=== PATIENT | male | born 1950 | race Two or more races ===

== ENCOUNTER → 2016-02-12 | Outpatient (CLI) | payer MEDICARE | LOC: RAD 15:34 | PROVIDERS: ATTEND Internal Medicine Medical Oncology | DX: D75.1 Secondary polycythemia (principal) | CPT/HCPCS: 71020 ==

== ENCOUNTER 2016-03-19 07:00 | Day surgery (SDC) | payer MEDICARE ==
[2016-03-19] MEDS ORDERED: NALOXONE HCL INJ/PF 0.4 MG/1 ML SDV ONE (07:29)
[2016-03-19] MEDS ORDERED: PROMETHAZINE HCL INJ 25 MG/1 ML VIAL ONE (07:29)
[2016-03-19] MEDS ORDERED: ONDANSETRON HCL INJ/PF 4 MG/2 ML SDV ONE (07:29)
[2016-03-19] MEDS ORDERED: FENTANYL CITRATE INJ/PF 100 MCG/2 ML AMPUL ONE (07:30)
[2016-03-19] MEDS ORDERED: MIDAZOLAM 2 MG/2 ML INJ ONE (07:30)
[2016-03-19] MEDS ORDERED: FLUMAZENIL INJ 0.5 MG/5 ML VIAL IV ONE (07:30)
[2016-03-19] MEDS ORDERED: GLUCAGON,HUMAN RECOMB 1 MG INJ ONE (07:30)
[2016-03-19] MEDS ORDERED: GLYCOPYRROLATE INJ 0.4 MG/2 ML VIAL ONE (07:30)
[2016-03-19] MEDS ORDERED: EPINEPHRINE INJ 1 MG/10 ML DISP.SYRIN ONE (07:30)
[2016-03-19 09:27] VITALS: BP 134/77
--- NOTE | 2016-03-19 09:40 | Operative Report ---
Operative Report DATE OF SURGERY: 03/19/16 PREOPERATIVE DIAGNOSIS: Need for screening colonoscopy POSTOPERATIVE DIAGNOSIS: Same; one polyp descending colon OPERATION: 1. Total colonoscopy to cecum with photodocumentation. 2. Ascending colon polypectomy with hot snare SURGEON: MATILDE MONTERO ANESTHESIA: Other - no sedation TISSUE REMOVED OR ALTERED: Descending colon polyp COMPLICATIONS: None ESTIMATED BLOOD LOSS: scant INTRAOPERATIVE FINDINGS: See below PROCEDURE: Obtaining informed consent the patient was taken from the preoperative holding area to the main endoscopy suite where monitoring devices were attached to the patient. Plan and surgical timeout were conducted The patient was placed in the left lateral decubitus position with knees to chest. The patient preferred no sedation and surgical procedures performed successfully without discomfort without sedation A perianal examination was performed. There was no visible or palpable anorectal pathology. Sphincter tone was felt to be normal. I could not palpate the prostate due to the patient 's body habitus The flexible adult colonoscope was advanced through the anal rectal canal, all the way to the cecum. Utilization of the cecum was achieved and the ileocecal valve, the appendiceal orifice and partial partial transillumination of the anterior abdominal wall. This was a very good study on a reasonably well- prepped bowel. There was a moderate amount of liquid stool that needed to be aspirated . The colonoscope was withdrawn slowly and methodically checked and the mucosa carefully. There was no evidence of tumor, stricture, bleeding. There was a solitary polyp in the ascending colon small approximately 3 mm slightly pedunculated. It was photographed, and removed using hot snare device on medium strength. The specimen was successfully retrieved and sent to pathology as ascending colon polyp. There was no mechanical bleeding following the polypectomy There was no evidence of diverticuloses. The scope was slowly withdrawn through the anal rectal canal. Complete visualization of the rectum was achieved with photodocumentation. The scope was withdrawn to the patient's anus. The patient tolerated the procedure well and was taken to the recovery area in stable condition. Per surveillance guidelines, patient be appropriate candidate for follow colonoscopy approximately 3 years.
--- NOTE | 2016-03-19 09:47 | PDOC DISCHARGE SUMMARY ---
Discharge Summary (SDC) - Discharge Final Diagnosis: Ascending colon polyp Date of Surgery: 03/19/16 Discharge Date: 03/19/16 Condition: Good Forms: Discharge POC-Surgical Service Treatment or Instructions: pt doesnt want a followup appt. will call office for results of bxs Referrals: KAUSHIK MARSHALL MD [Primary Care Provider] - Discharge Activity: Activity As Tolerated Home Care Assistance: None Needed Report the Following to Your Physician Immediately: Shortness of Breath, Increase in Pain, Fever over 101 Degrees - Patient returns also surgical clinic. Appointment with Dr. Watts in approximately 1-2 weeks
== END 2016-03-19 09:20 | disposition home or self-care (01) ==
LOC: END 07:00
PROVIDERS: ATTEND Surgery
PROC: 0DBK8ZX Excision of Ascending Colon, Via Natural or Artificial Opening Endoscopic, Diagnostic (ICD-10-PCS; principal; 2016-03-19 07:30)
DX: Z12.11 Encounter for screening for malignant neoplasm of colon (principal); D12.2 Benign neoplasm of ascending colon; I48.91 Unspecified atrial fibrillation; M19.90 Unspecified osteoarthritis, unspecified site; E66.01 Morbid (severe) obesity due to excess calories; G89.29 Other chronic pain; Z86.79 Personal history of other diseases of the circulatory system; Z88.3 Allergy status to other anti-infective agents; Z79.899 Other long term (current) drug therapy; Z68.45 Body mass index [BMI] 70 or greater, adult
CPT/HCPCS: 45385; 88305 ×2; J0171; J1610; J2250; J2310; J2405; J2550; J3010; J3490

== ENCOUNTER → 2016-03-23 | Outpatient (CLI) | payer MEDICARE | LOC: RAD 10:31 | PROVIDERS: ATTEND Internal Medicine Medical Oncology | DX: R10.2 Pelvic and perineal pain (principal) | CPT/HCPCS: 76770 ==

== ENCOUNTER 2016-03-24 11:24 | Emergency (ER) | payer MEDICARE ==
--- NOTE | 2016-03-24 11:43 | ER Document Report ---
ED Medical Screen (RME) - General Stated Complaint: LEG PAIN Time seen by provider: 11:41 Mode of Arrival: Wheelchair Information source: Patient Notes: 65-year-old male presents to ED for listed to the back of the right calf states that the pot today and is now bleeding. He has very edematous legs with any had 2 blisters that have gotten better now the leg is getting larger and titer ended the blister developed I have greeted and performed a rapid initial assessment of this patient. A comprehensive ED assessment and evaluation of the patient, analysis of test results and completion of medical decision making process will be conducted by an additional ED providers.. TRAVEL OUTSIDE OF THE [place] IN LAST 30 DAYS: No - Related Data Allergies/Adverse Reactions: ciprofloxacin [From Cipro] Allergy (Verified 03/24/16 11:37) ciprofloxacin HCl [From Cipro] Allergy (Verified 03/24/16 11:37) Past Medical History - Past Medical History Cardiac Medical History: Reports: Hx Atrial Fibrillation, Hx DVT Denies: Hx Coronary Artery Disease, Hx Heart Attack, Hx Hypertension Pulmonary Medical History: Reports: Hx Respiratory Failure, Hx Sleep Apnea Denies: Hx Asthma, Hx Bronchitis, Hx COPD, Hx Pneumonia, Hx Tuberculosis Neurological Medical History: Denies: Hx Cerebrovascular Accident, Hx Seizures GI Medical History: Reports: Hx Hiatal Hernia, Hx Endoscopy Musculoskeltal Medical History: Reports Hx Arthritis - ANKLES/KNEES/SHOULDERS, Reports Hx Musculoskeletal Deformity, Reports Hx Musculoskeletal Trauma Skin Medical History: Reports Hx Cellulitis Psychiatric Medical History: Reports: Hx Anxiety, Hx Depression Past Surgical History: Reports: Hx Abdominal Surgery - hernia repair, Hx Herniorrhaphy - Umbilical hernia repair, ventral hernia, Hx Testicular Surgery. Denies: Hx Pacemaker - Immunizations Hx Diphtheria, Pertussis, Tetanus Vaccination: Yes
[2016-03-24 11:45] VITALS: BP 130/58
--- NOTE | 2016-03-24 13:02 | ER Document Report ---
ED General - General Chief Complaint: Leg Pain Stated Complaint: LEG PAIN Time seen by provider: 12:45 Mode of Arrival: Wheelchair Information source: Patient Notes: 65-year-old male reports he has had a intact blood blister to the posterior right calf for 2 months that began bleeding this morning. He was reports being able to express considerable amount of blood from the area this morning and presents now for evaluation. He denies fever, chills, nausea, vomiting, chest pain, abdominal pain, or back pain. He is upper DACs birthrate or fibrillation and for history DVT. He reports chronic swelling to both lower extremities which is not worse than normal. He reports he's been in his usual state of health otherwise recently Physical Exam: General: Alert, morbidly obese pleasant male. HEENT: Normocephalic. Atraumatic. PERRLA. Extraocular movements intact. Oropharynx clear. Neck: Supple. Non-tender. Respiratory: No respiratory distress. Clear and equal breath sounds bilaterally. Cardiovascular: Regular rate and rhythm. Abdominal: Normal Inspection. Soft, non-tender. No distension. Normal Bowel Sounds. Back: Non-tender. No deformity or step off. Extremities: Moves all four extremities. Upper tremors walk 2+ pulses of cyanosis no edema Lower extremities warm to plus pulses 4+ edema. The right lower extremity has a 3 x 3 cm area of soft tissue swelling the central area of fresh blood clot. This area is palpated and do not palpate any deeper structures to suggest deep abscess and no purulence is expressed. There is a 1 x 2 cm area of erythema medial to this I think would be consistent with a superficial cellulitis. There is no crepitance or fluctuance surrounding the area and no streaking erythema approximately Neurological: Speech clear mentation normal Psychological: Normal affect. Normal Mood. Skin: Warm. Dry. Normal color. TRAVEL OUTSIDE OF THE [place] IN LAST 30 DAYS: No - Related Data Allergies/Adverse Reactions: ciprofloxacin [From Cipro] Allergy (Verified 03/24/16 11:37) ciprofloxacin HCl [From Cipro] Allergy (Verified 03/24/16 11:37) Past Medical History - General Information source: Patient - Social History Smoking Status: Former Smoker Chew tobacco use (# tins/day): No Frequency of alcohol use: None Drug Abuse: None Family History: Reviewed & Not Pertinent Patient has suicidal ideation: No Patient has homicidal ideation: No - Past Medical History Cardiac Medical History: Reports: Hx Atrial Fibrillation, Hx DVT Denies: Hx Coronary Artery Disease, Hx Heart Attack, Hx Hypertension Pulmonary Medical History: Reports: Hx Respiratory Failure, Hx Sleep Apnea Denies: Hx Asthma, Hx Bronchitis, Hx COPD, Hx Pneumonia, Hx Tuberculosis Neurological Medical History: Denies: Hx Cerebrovascular Accident, Hx Seizures Renal/ Medical History: Denies: Hx Peritoneal Dialysis GI Medical History: Reports: Hx Hiatal Hernia, Hx Endoscopy Musculoskeltal Medical History: Reports Hx Arthritis - ANKLES/KNEES/SHOULDERS, Reports Hx Musculoskeletal Deformity, Reports Hx Musculoskeletal Trauma Skin Medical History: Reports Hx Cellulitis Psychiatric Medical History: Reports: Hx Anxiety, Hx Depression Past Surgical History: Reports: Hx Abdominal Surgery - hernia repair, Hx Herniorrhaphy - Umbilical hernia repair, ventral hernia, Hx Testicular Surgery. Denies: Hx Pacemaker - Immunizations Hx Diphtheria, Pertussis, Tetanus Vaccination: Yes Hx Pneumococcal Vaccination: 11/09/15 Review of Systems - Review of Systems Constitutional: denies: Chills, Fever EENT: denies: Ear pain, Throat pain Cardiovascular: denies: Chest pain, Syncope Respiratory: denies: Cough, Short of breath Gastrointestinal: denies: Abdominal pain, Nausea, Vomiting Genitourinary: denies: Burning Musculoskeletal: denies: Back pain Skin: See HPI Neurological/Psychological: denies: Weakness, Numbness Physical Exam - Vital signs Vitals: Temp Pulse Resp BP Pulse Ox 97.7 F 76 18 130/58 H 93 03/24/16 11:37 03/24/16 11:37 03/24/16 11:37 03/24/16 11:37 03/24/16 11:37 Course - Re-evaluation Re-evalutation: 03/24/16 13:00 Examination the patient does not have an abscess in his reported blisters open and draining. There is no active or pulsatile bleeding present. I am concerned there is a cellulitis component to this and he will be placed on clindamycin for that. He reports he has some of this at home and have advised him that it is not . Use that we'll provide a prescription for more. Last can follow with his physician Dr. Fleming next week for recheck - Vital Signs Vital signs: Temp Pulse Resp BP Pulse Ox 97.7 F 76 18 130/58 H 93 03/24/16 11:37 03/24/16 11:37 03/24/16 11:37 03/24/16 11:37 03/24/16 11:37 Discharge - Discharge Clinical Impression: Cellulitis of right lower leg Condition: Stable Disposition: HOME, SELF-CARE Prescriptions: Clindamycin HCl [Cleocin 300 mg Capsule] 300 mg PO TID #30 capsule Referrals: KAUSHIK MARSHALL MD [Primary Care Provider] - Follow up in 1 week
== END 2016-03-24 13:33 | disposition home or self-care (01) ==
LOC: ER 11:24
DX: L03.115 Cellulitis of right lower limb (principal); R60.0 Localized edema; Z88.1 Allergy status to other antibiotic agents; Z87.891 Personal history of nicotine dependence; Z86.718 Personal history of other venous thrombosis and embolism
CPT/HCPCS: 99283

== ENCOUNTER → 2016-05-06 | Outpatient (CLI) | payer MEDICARE ==
[2016-05-06 14:26] LABS: ANION GAP 9 (5-19); BLOOD UREA NITROGEN 12 mg/dL (7-20); CALCIUM 9.5 mg/dL (8.4-10.2); CARBON DIOXIDE 38 mmol/L (22-30); CHLORIDE 96 mmol/L (98-107); CREATININE RESULT 0.74 mg/dL (0.52-1.25); GLUCOSE 121 mg/dL (75-110); POTASSIUM 4.8 mmol/L (3.6-5.0); SODIUM 143.3 mmol/L (137-145)
== END ==
LOC: OD 12:44
PROVIDERS: ATTEND Family Medicine
DX: I50.32 Chronic diastolic (congestive) heart failure (principal)
CPT/HCPCS: 36415; 80048

== ENCOUNTER → 2016-07-24 | Outpatient (CLI) | payer MEDICARE ==
[2016-07-24 09:21] LABS: BASOPHILS % (AUTO) 0.9 % (0-2); EOSINOPHILS % (AUTO) 2.3 % (0-6); HEMATOCRIT 53.8 % (37.9-51.0); HEMOGLOBIN 17.2 g/dL (13.5-17.0); HGB HCT DIFFERENCE -2.2; LYMPHOCYTES % (AUTO) 22.7 % (13-45); MEAN CORPUSCULAR HEMOGLOBIN 29.9 pg (27.0-33.4); MEAN CORPUSCULAR HGB CONC 31.9 g/dL (32.0-36.0); MEAN CORPUSCULAR VOLUME 94 fl (80-97); MONOCYTES % (AUTO) 7.3 % (3-13); RED BLOOD COUNT 5.74 10^6/uL (4.35-5.55); RED CELL DISTRIBUTION WIDTH 14.4 % (11.5-14.0); SEGMENTED NEUTROPHILS % (AUTO) 66.8 % (42-78); WHITE BLOOD COUNT 6.3 10^3/uL (4.0-10.5)
[2016-07-24 09:22] LABS: ABSOLUTE BASOPHILS # (AUTO) 0.1 10^3/uL (0.0-0.2); ABSOLUTE EOSINOPHILS # (AUTO) 0.1 10^3/uL (0.0-0.6); ABSOLUTE LYMPHOCYTES (AUTO) 1.4 10^3/uL (0.5-4.7); ABSOLUTE MONOCYTES (AUTO) 0.5 10^3/uL (0.1-1.4); ABSOLUTE NEUT (AUTO) 4.2 10^3/uL (1.7-8.2)
[2016-07-24 09:50] LABS: ALANINE AMINOTRANSFERASE 24 U/L (21-72); ALBUMIN 3.9 g/dL (3.5-5.0); ALKALINE PHOSPHATASE 72 U/L (38-126); ANION GAP 10 (5-19); ASPARTATE AMINO TRANSFERASE 22 U/L (17-59); BILIRUBIN,DIRECT 0.4 mg/dL (0.0-0.4); BILIRUBIN,TOTAL 0.9 mg/dL (0.2-1.3); BLOOD UREA NITROGEN 20 mg/dL (7-20); CARBON DIOXIDE 34 mmol/L (22-30); CHLORIDE 98 mmol/L (98-107); CREATININE RESULT 0.84 mg/dL (0.52-1.25); GLUCOSE 91 mg/dL (75-110); POTASSIUM 4.1 mmol/L (3.6-5.0); TOTAL PROTEIN 7.2 g/dL (6.3-8.2)
== END ==
LOC: OD 08:04
PROVIDERS: ATTEND Family Medicine
DX: Z13.1 Encounter for screening for diabetes mellitus (principal); E53.8 Deficiency of other specified B group vitamins; Z79.01 Long term (current) use of anticoagulants
CPT/HCPCS: 36415; 80048; 80076; 82607; 85025

== ENCOUNTER → 2016-10-13 | Outpatient (CLI) | payer MEDICARE ==
[2016-10-13 11:01] LABS: ABSOLUTE BASOPHILS # (AUTO) 0.1 10^3/uL (0.0-0.2); ABSOLUTE EOSINOPHILS # (AUTO) 0.1 10^3/uL (0.0-0.6); ABSOLUTE LYMPHOCYTES (AUTO) 1.3 10^3/uL (0.5-4.7); ABSOLUTE MONOCYTES (AUTO) 0.5 10^3/uL (0.1-1.4); ABSOLUTE NEUT (AUTO) 4.6 10^3/uL (1.7-8.2); BASOPHILS % (AUTO) 0.8 % (0-2); EOSINOPHILS % (AUTO) 1.9 % (0-6); HEMATOCRIT 54.7 % (37.9-51.0); HEMOGLOBIN 18.7 g/dL (13.5-17.0); HGB HCT DIFFERENCE 1.4; LYMPHOCYTES % (AUTO) 19.8 % (13-45); MEAN CORPUSCULAR HEMOGLOBIN 31.3 pg (27.0-33.4); MEAN CORPUSCULAR HGB CONC 34.2 g/dL (32.0-36.0); MEAN CORPUSCULAR VOLUME 92 fl (80-97); MONOCYTES % (AUTO) 7.4 % (3-13); RED BLOOD COUNT 5.96 10^6/uL (4.35-5.55); RED CELL DISTRIBUTION WIDTH 15.3 % (11.5-14.0); SEGMENTED NEUTROPHILS % (AUTO) 70.1 % (42-78); WHITE BLOOD COUNT 6.6 10^3/uL (4.0-10.5)
== END ==
LOC: OD 10:01
PROVIDERS: ATTEND Family Medicine
DX: Z79.01 Long term (current) use of anticoagulants (principal); Z51.81 Encounter for therapeutic drug level monitoring
CPT/HCPCS: 36415; 85025

== ENCOUNTER → 2017-08-26 | Outpatient (CLI) | payer MEDICARE ==
[2017-08-26 13:04] LABS: ABSOLUTE BASOPHILS # (AUTO) 0.1 10^3/uL (0.0-0.2); ABSOLUTE EOSINOPHILS # (AUTO) 0.2 10^3/uL (0.0-0.6); ABSOLUTE LYMPHOCYTES (AUTO) 1.5 10^3/uL (0.5-4.7); ABSOLUTE MONOCYTES (AUTO) 0.6 10^3/uL (0.1-1.4); ABSOLUTE NEUT (AUTO) 4.5 10^3/uL (1.7-8.2); BASOPHILS % (AUTO) 0.7 % (0-2); EOSINOPHILS % (AUTO) 2.9 % (0-6); HEMOGLOBIN 19.3 g/dL (13.5-17.0); LYMPHOCYTES % (AUTO) 21.9 % (13-45); MEAN CORPUSCULAR HGB CONC 33.7 g/dL (32.0-36.0); MEAN CORPUSCULAR VOLUME 92 fl (80-97); MONOCYTES % (AUTO) 8.4 % (3-13); PLATELET COUNT 177 10^3/uL (150-450); RED BLOOD COUNT 6.24 10^6/uL (4.35-5.55); RED CELL DISTRIBUTION WIDTH 14.4 % (11.5-14.0); SEGMENTED NEUTROPHILS % (AUTO) 66.1 % (42-78); TOTAL CELLS COUNTED % (AUTO) 100 %; WHITE BLOOD COUNT 6.8 10^3/uL (4.0-10.5)
[2017-08-26 13:11] LABS: HEMATOCRIT 57.4 % (37.9-51.0)
[2017-08-26 13:27] LABS: ALANINE AMINOTRANSFERASE 22 U/L (21-72); ALBUMIN 4.1 g/dL (3.5-5.0); ALKALINE PHOSPHATASE 75 U/L (38-126); ANION GAP 9 (5-19); ASPARTATE AMINO TRANSFERASE 23 U/L (17-59); BILIRUBIN,DIRECT 0.4 mg/dL (0.0-0.4); BILIRUBIN,TOTAL 0.9 mg/dL (0.2-1.3); BLOOD UREA NITROGEN 21 mg/dL (7-20); CALCIUM 9.3 mg/dL (8.4-10.2); CARBON DIOXIDE 33 mmol/L (22-30); CHLORIDE 100 mmol/L (98-107); GLUCOSE 102 mg/dL (75-110); SODIUM 141.5 mmol/L (137-145); TOTAL PROTEIN 7.4 g/dL (6.3-8.2)
== END ==
LOC: OD 12:09
PROVIDERS: ATTEND Family Medicine
DX: Z13.1 Encounter for screening for diabetes mellitus (principal); Z79.01 Long term (current) use of anticoagulants; E53.8 Deficiency of other specified B group vitamins
CPT/HCPCS: 36415; 80048; 80076; 82607; 85025

== ENCOUNTER → 2017-11-18 | Outpatient (CLI) | payer MEDICARE ==
--- NOTE | 2017-11-18 12:56 | RADIOLOGY REPORT (SQ) ---
EXAM DESCRIPTION: U/S ABDOMEN LIMITED W/O DOP COMPLETED DATE/TIME: 11/18/2017 12:25 pm REASON FOR STUDY: NAUSEA R11.0 NAUSEA COMPARISON: None. TECHNIQUE: Dynamic and static grayscale images acquired of the abdomen and recorded on PACS. Additio debbie selected color Doppler and spectral images recorded. LIMITATIONS: None. FINDINGS: PANCREAS: No masses. Visualized pancreatic duct normal caliber. LIVER: The liver measures 20.0 cm in length, hepatomegaly. Echotexture normal. LIVER VASCULATURE: Normal directional flow of the main portal vein and hepatic veins. GALLBLADDER: Gallstones. The gallbladder wall measures 2.9 mm, upper limits normal wall thickness. No pericholecystic fluid. ULTRASOUND-DETECTED WARE'S SIGN: Negative. INTRAHEPATIC DUCTS AND COMMON DUCT: CBD measures 4.4 mm in diameter, normal. The intrahepatic ducts normal caliber. No filling defects. INFERIOR VENA CAVA: Normal flow. AORTA: No aneurysm. RIGHT KIDNEY: The right kidney measures 12.0 cm in length, normal size. Normal echogenicity. No lee d or suspicious masses. No hydronephrosis. No calcifications. PERITONEAL AND RIGHT PLEURAL SPACE: No ascites or effusions. OTHER: No other significant findings. IMPRESSION: 1. Gallstones. 2. No evidence for biliary obstruction. 3. Hepatomegaly. TECHNICAL DOCUMENTATION: JOB ID: [id number] [employer]- All Rights Reserved Reading location - IP/workstation name: [email or web address]
== END ==
LOC: RAD 10:49
PROVIDERS: ATTEND Family Medicine
DX: R11.0 Nausea (principal); K80.80 Other cholelithiasis without obstruction; R16.0 Hepatomegaly, not elsewhere classified
CPT/HCPCS: 76705

== ENCOUNTER 2018-01-06 14:10 | Emergency (ER) | payer MEDICARE ==
[2018-01-06] MEDS ORDERED: IPRATROPIUM/ALBUTEROL 0.5-2.5 MG/3 ML AMPUL NEB ONE ×2 (16:17→17:22)
[2018-01-06] MEDS ORDERED: PREDNISONE 20 MG TABLET PO ONE (16:17)
--- NOTE | 2018-01-06 16:40 | RADIOLOGY REPORT (SQ) ---
EXAM DESCRIPTION: CHEST SINGLE VIEW COMPLETED DATE/TIME: 01/06/2018 4:33 pm REASON FOR STUDY: cough, fever COMPARISON: 02/12/2016. NUMBER OF VIEWS: One view. TECHNIQUE: Single frontal radiographic view of the chest acquired. LIMITATIONS: None. FINDINGS: LUNGS AND PLEURA: No opacities, masses or pneumothorax. No pleural effusion. MEDIASTINUM AND HILAR STRUCTURES: No masses. Contour normal. HEART AND VASCULAR STRUCTURES: Heart enlarged without failure. Normal vasculature. BONES: No acute findings. HARDWARE: None in the chest. OTHER: No other significant finding. IMPRESSION: HEART ENLARGED WITHOUT FAILURE. NO OTHER SIGNIFICANT RADIOGRAPHIC FINDING IN THE CHEST. TECHNICAL DOCUMENTATION: JOB ID: [id number] [employer]- All Rights Reserved Reading location - IP/workstation name: [email or web address]
[2018-01-06 16:52] LABS: A TYPE INFLUENZA AG NEGATIVE (NEGATIVE); B INFLUENZA AG NEGATIVE (NEGATIVE)
--- NOTE | 2018-01-06 17:35 | ER Document Report ---
HPI - HPI Time Seen by Provider: 01/06/18 15:29 Pain Level: 0 Notes: Patient is a 67-year-old male who presents with chief complaint of cough, congestion and intermittent fever over the last 5 days. Patient reports he tried to get into see his primary care provider however they were closed. They told him to come to the ER to get a flu test. Patient denies any nausea, vomiting or diarrhea. - CONSTITUTIONAL Constitutional: REPORTS: Fever, Chills - EENT EENT: DENIES: Sore Throat, Ear Pain, Eye problems - NEURO Neurology: DENIES: Headache, Weakness, Vision blurred, Dizzinesss / Vertigo - CARDIOVASCULAR Cardiovascular: DENIES: Chest pain - RESPIRATORY Respiratory: REPORTS: Coughing. DENIES: Trouble Breathing - GASTROINTESTINAL Gastrointestinal: REPORTS: Abdominal Pain. DENIES: Black / Bloody Stools - URINARY Urinary: DENIES: Dysuria, Urgency, Frequency - REPRODUCTIVE Reproductive: DENIES: : - MUSCULOSKELETAL Musculoskeletal: REPORTS: Extremity pain - chronic pain Past Medical History - General Information source: Patient - Social History Smoking Status: Never Smoker Frequency of alcohol use: None Drug Abuse: Marijuana Family History: Reviewed & Not Pertinent Patient has suicidal ideation: No Patient has homicidal ideation: No - Past Medical History Cardiac Medical History: Reports: Hx Atrial Fibrillation, Hx DVT Denies: Hx Coronary Artery Disease, Hx Heart Attack, Hx Hypertension Pulmonary Medical History: Reports: Hx Respiratory Failure, Hx Sleep Apnea Denies: Hx Asthma, Hx Bronchitis, Hx COPD, Hx Pneumonia, Hx Tuberculosis Neurological Medical History: Denies: Hx Cerebrovascular Accident, Hx Seizures Renal/ Medical History: Denies: Hx Peritoneal Dialysis GI Medical History: Reports: Hx Hiatal Hernia, Hx Endoscopy Musculoskeletal Medical History: Reports Hx Arthritis - ANKLES/KNEES/SHOULDERS, Reports Hx Musculoskeletal Deformity, Reports Hx Musculoskeletal Trauma Skin Medical History: Reports Hx Cellulitis Psychiatric Medical History: Reports: Hx Anxiety, Hx Depression Past Surgical History: Reports: Hx Abdominal Surgery - hernia repair, Hx Herniorrhaphy - Umbilical hernia repair, ventral hernia, Hx Testicular Surgery. Denies: Hx Pacemaker - Immunizations Hx Diphtheria, Pertussis, Tetanus Vaccination: Yes Hx Pneumococcal Vaccination: 11/09/15 Vertical Provider Document - CONSTITUTIONAL Notes: PHYSICAL EXAMINATION: GENERAL: Well-appearing, well-nourished and in no acute distress. HEAD: Atraumatic, normocephalic. EYES: Pupils equal round extraocular movements intact, conjunctiva are normal. ENT: Nares patent NECK: Normal range of motion LUNGS: No respiratory distress, moderate expiratory wheezing noted bilaterally. Musculoskeletal: Normal range of motion NEUROLOGICAL: Normal speech. PSYCH: Normal mood, normal affect. SKIN: Warm, Dry, normal turgor, no rashes or lesions noted. - INFECTION CONTROL TRAVEL OUTSIDE OF THE [place] IN LAST 30 DAYS: No Course - Re-evaluation Re-evalutation: Chest x-rays negative for any acute findings. Duoneb x2 given. Influenza negative. Patient will be discharged home with likely viral bronchitis. Patient will be started on prednisone. Patient given first dose now, prescription called in for patient's convenience and patient being wheelchair- bound. - Vital Signs Vital signs: Temp Pulse Resp BP Pulse Ox 77 22 H 149/91 H 92 01/06/18 14:25 01/06/18 14:25 01/06/18 14:25 01/06/18 14:25 Discharge - Discharge Clinical Impression: Acute bronchitis Qualifiers: Bronchitis organism: unspecified organism Qualified Code(s): J20.9 - Acute bronchitis, unspecified Condition: Stable Disposition: HOME, SELF-CARE Additional Instructions: BRONCHITIS: You have acute bronchitis. This disease is an infection or inflammation of the air passageways in your lungs. Symptoms usually include cough, low grade fever, shortness of breath, and wheezing. The cough usually persists for a couple of weeks. Most cases of bronchitis get better without antibiotics. We prescribe antibiotics when we believe bacteria are damaging your airways, or if there's high risk the bronchitis will worsen into pneumonia. Increase your fluid intake. A cool mist humidifier may make your lungs more comfortable. An expectorant (cough medicine that loosens phlegm) can help. If you smoke, STOP!!! Recovery from bronchitis can be somewhat slow, but you should see improvement within a day or two. Repeated episodes of bronchitis may result in lung damage -- for example, chronic bronchitis, recurrent pneumonias, or emphysema. Call the doctor if you develop increasing fever, shortness of breath, chest pain, bloody sputum, or otherwise worsen. If you have not improved at all after several days, contact the physician. BRONCHITIS WITH BRONCHOSPASM (WHEEZING): You have bronchitis with bronchospasm (wheezing). Sometimes people develop wheezing with a chest cold. This occurs either because of an underlying tendency toward asthma or because the virus itself irritates the bronchial tubes. This irritation causes cough, shortness of breath, and wheezing. Emergency treatment of bronchospasm may include adrenaline shots or bronchodilator aerosol. You may feel lightheaded and have a rapid pulse for an hour or two. Rest and get plenty of fluids. At home, we'll treat you with a bronchodilator inhaler. Corticosteroids may be required for some patients. Until you recover, avoid chemical fumes, dusts, pollens, and exercising in very cold or dry air. If you smoke, stop now! Most cases of bronchitis get better without antibiotics. We prescribe antibiotics when we believe bacteria are damaging your airways, or if there's high risk the bronchitis will worsen into pneumonia. Increase your fluid intake. A cool mist humidifier may make your lungs more comfortable. An expectorant (cough medicine that loosens phlegm) can help. Repeated episodes of bronchitis and bronchospasm may result in lung damage -- for example, chronic bronchitis, recurrent pneumonias, or emphysema. If you develop a fever, increased wheezing, chest pain, or severe shortness of breath, you should contact the doctor immediately. INHALED BRONCHODILATORS: You have received a treatment of and/or prescription for an inhaled bronchodilator -- a medication which stimulates the airways in the lung to dilate. This improves the flow of air in asthma, bronchitis, and emphysema. These medicines have some similarity to adrenaline, and can cause similar side effects: shakiness, racing heart, and a sense of nervousness. These side effects decrease with time. Contact your doctor if these side effects are severe. Do not over-use the medicine. Too-frequent use of the inhaler may make it ineffective. Call your doctor if the inhaler is not controlling your symptoms at the prescribed doses. STEROID MEDICATION: You have been given an injection of or oral medicine of the cortisone/ steroid class. This medication is used to control inflammation or allergy. Gulshan t is usually only given for a short period of time, until the acute process subsides. There are usually no side effects from short-term use of cortisone-like medications. Some persons feel an increased sense of well-being and are not sleepy at bedtime. Long-term use of cortisone medications is best avoided, unless required for a severe condition. If your condition does not remit, or relapses after the course of corticosteroid medication, you should consult your physician. USE OF ACETAMINOPHEN (Tylenol): Acetaminophen may be taken for pain relief or fever control. It's much safer than aspirin, offering a wider range of "safe" dosages. It is safe during . Some brand names are Tylenol, Panadol, Datril, Anacin 3, Tempra, and Liquiprin. Acetaminophen can be repeated every four hours. The following are maximum recommended dosages: >89 pounds or adults 650 mg to 900 mg Acetaminophen can be repeated every four hours. Maximum dose not to exceed 4000 mg a day. SMOKING: If you smoke, you should stop smoking. The tar and chemicals in cigarette smoke are harmful. Smoking has been shown to cause: emphysema chronic bronchitis lung cancer mouth and throat cancer stomach and pancreas cancer premature aging defects In addition, smoking increases ear and lung infections in children of smokers. FOLLOW-UP CARE: If you have been referred to a physician for follow-up care, call the physician s office for an appointment as you were instructed or within the next two days. If you experience worsening or a significant change in your symptoms, notify the physician immediately or return to the Emergency Department at any time for re-evaluation. Your chest x-ray was negative today for any acute findings. I called in your prescription for prednisone. They should have this ready for you whenever you get there tomorrow. Please take your dose tomorrow as we are to give you a dose for today. Use the albuterol inhaler as needed. You may take 2 puffs every 4 hours for shortness of breath or wheezing. Please try to drink plenty of fluids and get plenty of rest over the next several days. Return to the emergency department if you develop worsening shortness of breath, chest pain or persistent fever that is unrelieved by acetaminophen or ibuprofen. Prescriptions: Prednisone [Deltasone 20 mg Tablet] 3 tab PO DAILY 4 Days #12 tablet Referrals: KAUSHIK MARSHALL MD [Primary Care Provider] - Follow up as needed
[2018-01-06 17:44] VITALS: BP 125/86
== END 2018-01-06 17:47 | disposition home or self-care (01) ==
LOC: ER 14:10
DX: J20.9 Acute bronchitis, unspecified (principal); R05 Cough; R09.81 Nasal congestion; R50.9 Fever, unspecified; M79.609 Pain in unspecified limb; G89.29 Other chronic pain
CPT/HCPCS: 94640 ×2; 99284; 87804; 71045; A9270 ×2; J7512; J7620

== ENCOUNTER → 2018-03-04 | Outpatient (CLI) | payer MEDICARE ==
[2018-03-04 15:44] LABS: ALANINE AMINOTRANSFERASE 32 U/L (21-72); ALBUMIN 4.2 g/dL (3.5-5.0); ALKALINE PHOSPHATASE 75 U/L (38-126); ANION GAP 6 (5-19); ASPARTATE AMINO TRANSFERASE 23 U/L (17-59); BILIRUBIN,DIRECT 0.1 mg/dL (0.0-0.4); BILIRUBIN,TOTAL 0.6 mg/dL (0.2-1.3); BLOOD UREA NITROGEN 24 mg/dL (7-20); CALCIUM 9.3 mg/dL (8.4-10.2); CARBON DIOXIDE 34 mmol/L (22-30); CHLORIDE 101 mmol/L (98-107); CHOLESTEROL 191.65 mg/dL (0-200); GLUCOSE 97 mg/dL (75-110); POTASSIUM 4.8 mmol/L (3.6-5.0); SODIUM 140.6 mmol/L (137-145); TRIGLYCERIDES 121 mg/dL (<150)
[2018-03-04 15:45] LABS: ABSOLUTE BASOPHILS # (AUTO) 0.1 10^3/uL (0.0-0.2); ABSOLUTE EOSINOPHILS # (AUTO) 0.2 10^3/uL (0.0-0.6); ABSOLUTE LYMPHOCYTES (AUTO) 1.4 10^3/uL (0.5-4.7); ABSOLUTE MONOCYTES (AUTO) 0.4 10^3/uL (0.1-1.4); ABSOLUTE NEUT (AUTO) 4.9 10^3/uL (1.7-8.2); BASOPHILS % (AUTO) 0.8 % (0-2); EOSINOPHILS % (AUTO) 2.2 % (0-6); LYMPHOCYTES % (AUTO) 20.5 % (13-45); MEAN CORPUSCULAR HEMOGLOBIN 30.7 pg (27.0-33.4); MEAN CORPUSCULAR HGB CONC 34.2 g/dL (32.0-36.0); MEAN CORPUSCULAR VOLUME 90 fl (80-97); MONOCYTES % (AUTO) 5.5 % (3-13); PLATELET COUNT 174 10^3/uL (150-450); RED BLOOD COUNT 6.17 10^6/uL (4.35-5.55); RED CELL DISTRIBUTION WIDTH 14.8 % (11.5-14.0); TOTAL CELLS COUNTED % (AUTO) 100 %; WHITE BLOOD COUNT 6.9 10^3/uL (4.0-10.5)
[2018-03-04 15:49] LABS: HEMATOCRIT 55.5 % (37.9-51.0)
[2018-03-04 15:55] LABS: DIRECT LDL 122 mg/dL (<100)
== END ==
LOC: OD 14:23
PROVIDERS: ATTEND Family Medicine
DX: I48.2 Chronic atrial fibrillation (principal); E78.5 Hyperlipidemia, unspecified; E03.9 Hypothyroidism, unspecified; E53.8 Deficiency of other specified B group vitamins; E66.2 Morbid (severe) obesity with alveolar hypoventilation; Z13.1 Encounter for screening for diabetes mellitus; Z13.220 Encounter for screening for lipoid disorders; Z79.01 Long term (current) use of anticoagulants
CPT/HCPCS: 36415; 80048; 80061; 80076; 82607; 85025

== ENCOUNTER → 2018-03-07 | Outpatient (CLI) | payer MEDICARE ==
[2018-03-07 15:04] LABS: FREE T3 3.54 pg/mL (2.77-5.27); FREE T4 (FREE THYROXINE) 1.16 ng/dL (0.78-2.19)
[2018-03-07 15:18] LABS: THYROID STIMULATING HORMONE 2.56 uIU/mL (0.47-4.68)
== END ==
LOC: OD 13:48
PROVIDERS: ATTEND Family Medicine
DX: I48.2 Chronic atrial fibrillation (principal); E78.5 Hyperlipidemia, unspecified; E03.9 Hypothyroidism, unspecified; E66.2 Morbid (severe) obesity with alveolar hypoventilation; E53.9 Vitamin B deficiency, unspecified
CPT/HCPCS: 36415; 83036; 83735; 84439; 84443; 84481

== ENCOUNTER 2018-03-20 13:37 | Observation (INO) | payer MEDICARE ==
--- NOTE | 2018-03-20 13:53 | ER Document Report ---
ED General - General Chief Complaint: Flu Symptoms Stated Complaint: CONGESTION,HEADACHE,BODY PAIN Primary Care Provider: KAUSHIK MARSHALL MD [Primary Care Provider] - Follow up as needed TRAVEL OUTSIDE OF THE [place] IN LAST 30 DAYS: No - Related Data Allergies/Adverse Reactions: ciprofloxacin [From Cipro] Allergy (Verified 03/20/18 13:38) ciprofloxacin HCl [From Cipro] Allergy (Verified 03/20/18 13:38) Past Medical History - Social History Family History: Reviewed & Not Pertinent - Past Medical History Cardiac Medical History: Reports: Hx Atrial Fibrillation, Hx DVT Denies: Hx Coronary Artery Disease, Hx Heart Attack, Hx Hypertension Pulmonary Medical History: Reports: Hx Respiratory Failure, Hx Sleep Apnea Denies: Hx Asthma, Hx Bronchitis, Hx COPD, Hx Pneumonia, Hx Tuberculosis Neurological Medical History: Denies: Hx Cerebrovascular Accident, Hx Seizures Renal/ Medical History: Denies: Hx Peritoneal Dialysis GI Medical History: Reports: Hx Hiatal Hernia, Hx Endoscopy Musculoskeletal Medical History: Reports Hx Arthritis - ANKLES/KNEES/SHOULDERS, Reports Hx Musculoskeletal Deformity, Reports Hx Musculoskeletal Trauma Skin Medical History: Reports Hx Cellulitis Psychiatric Medical History: Reports: Hx Anxiety, Hx Depression Past Surgical History: Reports: Hx Abdominal Surgery - hernia repair, Hx Herniorrhaphy - Umbilical hernia repair, ventral hernia, Hx Testicular Surgery. Denies: Hx Pacemaker - Immunizations Hx Diphtheria, Pertussis, Tetanus Vaccination: Yes Hx Pneumococcal Vaccination: 11/09/15 Physical Exam - Vital signs Vitals: Temp Pulse Resp BP Pulse Ox 100.2 F 80 24 H 114/71 91 L 03/20/18 13:44 03/20/18 13:44 03/20/18 13:44 03/20/18 13:44 03/20/18 13:44 Course - Vital Signs Vital signs: Temp Pulse Resp BP Pulse Ox 100.2 F 80 24 H 114/71 91 L 03/20/18 13:44 03/20/18 13:44 03/20/18 13:44 03/20/18 13:44 03/20/18 13:44 Discharge - Discharge Referrals: KAUSHIK MARSHALL MD [Primary Care Provider] - Follow up as needed
[2018-03-20] MEDS ORDERED: METHYLPREDNISOLONE INJ 125 MG/2 ML SDV IV ONE (14:10)
[2018-03-20] MEDS ORDERED: IPRATROPIUM/ALBUTEROL 0.5-2.5 MG/3 ML AMPUL NEB ONE ×2 (14:10→15:43)
[2018-03-20] MEDS ORDERED: ACETAMINOPHEN 325 MG TABLET PO ONE ×2 (14:14→18:21)
--- NOTE | 2018-03-20 14:14 | ER Document Report ---
ED Medical Screen (RME) - General Chief Complaint: Flu Symptoms Stated Complaint: CONGESTION,HEADACHE,BODY PAIN Time Seen by Provider: 03/20/18 14:00 Primary Care Provider: KAUSHIK MARSHALL MD [Primary Care Provider] - Follow up as needed Mode of Arrival: Wheelchair Information source: Patient Notes: 67-year-old male presents emergency department with complaints of fever, chills, productive cough with green sputum, headache, sore throat for the last 4 days. Patient states that he is continuing to get worse. Patient states that he is a former smoker. No history of COPD. He is not on home oxygen and does not use any DuoNeb treatments. Has an old albuterol inhaler. Oxygen saturations in triage were 88% on room air. Patient placed on 2 L nasal cannula. Patient states that he has used home oxygen 3 years ago but does not have any oxygen at home currently. I have greeted and performed a rapid initial assessment of this patient. A comprehensive ED assessment and evaluation of the patient, analysis of test results and completion of the medical decision making process will be conducted by additional ED providers. PHYSICAL EXAMINATION: GENERAL: Well-appearing, well-nourished and in no acute distress. HEAD: Atraumatic, normocephalic. EYES: Pupils equal round extraocular movements intact, conjunctiva are normal. ENT: Nares patent NECK: Normal range of motion LUNGS: Wheezing. Musculoskeletal: Normal range of motion NEUROLOGICAL: Normal speech PSYCH: Normal mood, normal affect. TRAVEL OUTSIDE OF THE [place] IN LAST 30 DAYS: No - Related Data Allergies/Adverse Reactions: ciprofloxacin [From Cipro] Allergy (Verified 03/20/18 13:38) ciprofloxacin HCl [From Cipro] Allergy (Verified 03/20/18 13:38) Past Medical History - Social History Frequency of alcohol use: None Drug Abuse: Marijuana - Past Medical History Cardiac Medical History: Reports: Hx Atrial Fibrillation, Hx DVT Denies: Hx Coronary Artery Disease, Hx Heart Attack, Hx Hypertension Pulmonary Medical History: Reports: Hx Respiratory Failure, Hx Sleep Apnea Denies: Hx Asthma, Hx Bronchitis, Hx COPD, Hx Pneumonia, Hx Tuberculosis Neurological Medical History: Denies: Hx Cerebrovascular Accident, Hx Seizures Renal/ Medical History: Denies: Hx Peritoneal Dialysis GI Medical History: Reports: Hx Hiatal Hernia, Hx Endoscopy Musculoskeltal Medical History: Reports Hx Arthritis - ANKLES/KNEES/SHOULDERS, Reports Hx Musculoskeletal Deformity, Reports Hx Musculoskeletal Trauma Skin Medical History: Reports Hx Cellulitis Psychiatric Medical History: Reports: Hx Anxiety, Hx Depression Past Surgical History: Reports: Hx Abdominal Surgery - hernia repair, Hx Herniorrhaphy - Umbilical hernia repair, ventral hernia, Hx Testicular Surgery. Denies: Hx Pacemaker - Immunizations Hx Diphtheria, Pertussis, Tetanus Vaccination: Yes Physical Exam - Vital signs Vitals: Temp Pulse Resp BP Pulse Ox 100.2 F 80 24 H 114/71 91 L 03/20/18 13:44 03/20/18 13:44 03/20/18 13:44 03/20/18 13:44 03/20/18 13:44 Course - Vital Signs Vital signs: Temp Pulse Resp BP Pulse Ox 100.2 F 80 24 H 114/71 91 L 03/20/18 13:44 03/20/18 13:44 03/20/18 13:44 03/20/18 13:44 03/20/18 13:44 Doctor's Discharge - Discharge Referrals: KAUSHIK MARSHALL MD [Primary Care Provider] - Follow up as needed
--- NOTE | 2018-03-20 14:55 | RADIOLOGY REPORT (SQ) ---
EXAM DESCRIPTION: CHEST SINGLE VIEW COMPLETED DATE/TIME: 03/20/2018 2:40 pm REASON FOR STUDY: cough COMPARISON: 01/06/2018 TECHNIQUE: Single frontal radiographic view of the chest acquired. NUMBER OF VIEWS: One view. LIMITATIONS: None. FINDINGS: LUNGS AND PLEURA: No pneumothorax. No consolidation or pleural effusion. MEDIASTINUM AND HILAR STRUCTURES: Stable. HEART AND VASCULAR STRUCTURES: Stable mild cardiomegaly. BONES: No acute findings. HARDWARE: None in the chest. OTHER: No other significant finding. IMPRESSION: NO ACUTE FINDINGS. TECHNICAL DOCUMENTATION: JOB ID: [id number] [id number] 2010 [employer]- All Rights Reserved Reading location - IP/workstation name: [email or web address]
[2018-03-20] MEDS ORDERED: BUDESONIDE NEB 0.5 MG/2 ML AMPUL NEB ONE (15:43)
--- NOTE | 2018-03-20 15:45 | ER Document Report ---
ED General - General Chief Complaint: Flu Symptoms Stated Complaint: CONGESTION,HEADACHE,BODY PAIN Time Seen by Provider: 03/20/18 14:00 Primary Care Provider: KAUSHIK PUGA MD [Primary Care Provider] - Follow up as needed Mode of Arrival: Wheelchair Notes: Patient is a 67-year-old male with history of lymphedema, morbid obesity that presents to the emergency department for chief complaint of cough, shortness of breath and wheezing. Patient states his symptoms started a few days ago, got pr ogressively worse over the period of time he said wheezing, and nonproductive cough, and is felt more short of breath. The patient is wheelchair-bound, he is super morbidly obese, he states he has been on oxygen before, but that is when he weighed about 200 pounds more than what he weighs now. He has not been on oxygen for some time. He denies history of asthma or COPD, he states he remotely had an inhaler he try to use over the past few days without much improvement of any of his symptoms so he decided to come to the emergency department. He denies having any fevers, chills, night sweats, chest pain, nausea, vomiting or abdominal pain. Past Medical History: Atrial fibrillation, hypertension, osteoarthritis Past Surgical History: Hernia repair Social History: Denies current tobacco use, alcohol admits to rare marijuana use. Primary care physician is Dr. Puga Family History: Reviewed and noncontributory for presenting illness Allergies: Reviewed, see documented allergy list. REVIEW OF SYSTEMS: Other than noted above, the 12 point review of systems was reviewed with the patient and were negative, all pertinent findings are included in the HPI. PHYSICAL EXAMINATION: Vital signs reviewed, nursing noted reviewed. GENERAL: Morbidly obese elderly obese male, increased work of breathing HEAD: Atraumatic, normocephalic. EYES: Eyes appear normal, extraocular movements intact, sclera anicteric, conjunctiva are normal. ENT: nares patent, oropharynx clear without exudates. Moist mucous membranes. NECK: Normal range of motion, supple without lymphadenopathy LUNGS: Inspiratory and expiratory wheezing noted throughout all lung haji, conversational dyspnea, and increased work of breathing. HEART: Heart rate regular, with an irregular rhythm, atrial fibrillation with controlled rate on telemetry. ABDOMEN: Soft, obese, nontender, normoactive bowel sounds. No rebound, guarding, or rigidity. No masses appreciated. EXTREMITIES: Severe bilateral lymphedema in the lower extremities, with stasis skin changes, upper extremities are unremarkable NEUROLOGICAL: No focal neurological deficits. Moves all extremities spontaneously Motor and sensory grossly intact on exam. PSYCH: Normal mood, normal affect. SKIN: Warm, Dry, normal turgor, no rashes or lesions noted on exposed skin TRAVEL OUTSIDE OF THE [place] IN LAST 30 DAYS: No - Related Data Allergies/Adverse Reactions: ciprofloxacin [From Cipro] Allergy (Verified 03/20/18 13:38) ciprofloxacin HCl [From Cipro] Allergy (Verified 03/20/18 13:38) Past Medical History - General Information source: Patient - Social History Smoking Status: Former Smoker Frequency of alcohol use: None Drug Abuse: Marijuana Family History: Reviewed & Not Pertinent Patient has suicidal ideation: No Patient has homicidal ideation: No - Past Medical History Cardiac Medical History: Reports: Hx Atrial Fibrillation, Hx DVT Denies: Hx Coronary Artery Disease, Hx Heart Attack, Hx Hypertension Pulmonary Medical History: Reports: Hx Respiratory Failure, Hx Sleep Apnea Denies: Hx Asthma, Hx Bronchitis, Hx COPD, Hx Pneumonia, Hx Tuberculosis Neurological Medical History: Denies: Hx Cerebrovascular Accident, Hx Seizures Renal/ Medical History: Denies: Hx Peritoneal Dialysis GI Medical History: Reports: Hx Hiatal Hernia, Hx Endoscopy Musculoskeletal Medical History: Reports Hx Arthritis - ANKLES/KNEES/SHOULDERS, Reports Hx Musculoskeletal Deformity, Reports Hx Musculoskeletal Trauma Skin Medical History: Reports Hx Cellulitis Psychiatric Medical History: Reports: Hx Anxiety, Hx Depression Past Surgical History: Reports: Hx Abdominal Surgery - hernia repair, Hx Herniorrhaphy - Umbilical hernia repair, ventral hernia, Hx Testicular Surgery. Denies: Hx Pacemaker - Immunizations Hx Diphtheria, Pertussis, Tetanus Vaccination: Yes Hx Pneumococcal Vaccination: 11/09/15 Physical Exam - Vital signs Vitals: Temp Pulse Resp BP Pulse Ox 100.2 F 80 24 H 114/71 91 L 03/20/18 13:44 03/20/18 13:44 03/20/18 13:44 03/20/18 13:44 03/20/18 13:44 Course - Re-evaluation Re-evalutation: Patient seen and examined vital signs reviewed. Laboratory data and imaging were ordered as appropriate for the patient's presenting symptoms and complaint, with consideration of any critical or life threatening conditions that may be associated with their obtained history and e xam as noted above. Patient was treated with IV Solu-Medrol, DuoNeb breathing treatments, and inhal ed budesonide, he is also given IV magnesium. Results were reviewed when available and demonstrated hemoconcentration, likely secondary to obesity hypoventilation syndrome, as well as an elevated bicarb, patient has underlying chronic respiratory failure as a result of obesity, chest x-ray was negative The patient was re-evaluated and was continuing to have wheezing, and will drop intermittently on 2 L nasal cannula to the 80s on his SPO2, patient is not currently on home oxygen, I feel that the patient should be admitted as a result due to the hypoxia, and continued bronchospasm, I feel that he would benefit from IV corticosteroids, and scheduled breathing treatments to improve this. Evaluation was most consistent with acute bronchospasm, with hypoxia Results were discussed with the patient at this point after careful consideration I feel that that patient should be admitted to the hospital. This was discussed with the patient that it is in the best interest for their care to be admitted for further evaluation and management. Patient agreed with this plan of care. A call was placed to the admitted physician, Dr. Middleton who graciously accepted the patient onto their service. *Note is created using voice recognition software and may contain spelling, syntax or grammatical errors. Laboratory 03/20/18 03/20/18 03/20/18 15:12 15:12 15:12 WBC 7.0 RBC 6.00 H Hgb 18.2 H Hct 54.0 H MCV 90 MCH 30.3 MCHC 33.7 RDW 14.8 H Plt Count 156 Seg Neutrophils % 75.2 Lymphocytes % 10.3 L Monocytes % 12.6 Eosinophils % 1.3 Basophils % 0.6 Absolute Neutrophils 5.3 Absolute Lymphocytes 0.7 Absolute Monocytes 0.9 Absolute Eosinophils 0.1 Absolute Basophils 0.0 Sodium 140.0 Potassium 4.9 Chloride 97 L Carbon Dioxide 35 H Anion Gap 8 BUN 22 H Creatinine 0.81 Est GFR ( Amer) > 60 Est GFR (Non-Af Amer) > 60 Glucose 103 Calcium 9.0 Total Bilirubin 0.6 Direct Bilirubin 0.2 Neonat Total Bilirubin Not Reportable Neonat Direct Bilirubin Not Reportable Neonat Indirect Bili Not Reportable AST 27 ALT 31 Alkaline Phosphatase 74 Total Protein 6.6 Albumin 4.2 Influenza A (Rapid) NEGATIVE Influenza B (Rapid) NEGATIVE Chest X-Ray 03/20/18 14:09 IMPRESSION: NO ACUTE FINDINGS. - Vital Signs Vital signs: Temp Pulse Resp BP Pulse Ox 100.2 F 80 18 146/94 H 95 03/20/18 13:44 03/20/18 13:44 03/20/18 16:03 03/20/18 16:04 03/20/18 16:04 - Laboratory Result Diagrams: 03/20/18 15:12 03/20/18 15:12 Laboratory results interpreted by me: 03/20/18 03/20/18 15:12 15:12 RBC 6.00 H Hgb 18.2 H Hct 54.0 H RDW 14.8 H Lymphocytes % 10.3 L Chloride 97 L Carbon Dioxide 35 H BUN 22 H Discharge - Discharge Clinical Impression: Acute bronchospasm, Hypoxia, Obesity, morbid, BMI 50 or higher, Lymphedema Condition: Stable Disposition: ADMITTED INPATIENT Admitting Provider: Hospitalist - DR. MIDDLETON Unit Admitted: Telemetry Referrals: KAUSHIK PUGA MD [Primary Care Provider] - Follow up as needed
[2018-03-20 15:46] LABS: ABSOLUTE EOSINOPHILS # (AUTO) 0.1 10^3/uL (0.0-0.6); ABSOLUTE LYMPHOCYTES (AUTO) 0.7 10^3/uL (0.5-4.7); ABSOLUTE MONOCYTES (AUTO) 0.9 10^3/uL (0.1-1.4); ABSOLUTE NEUT (AUTO) 5.3 10^3/uL (1.7-8.2); BASOPHILS % (AUTO) 0.6 % (0-2); EOSINOPHILS % (AUTO) 1.3 % (0-6); HEMOGLOBIN 18.2 g/dL (13.5-17.0); LYMPHOCYTES % (AUTO) 10.3 % (13-45); MEAN CORPUSCULAR HEMOGLOBIN 30.3 pg (27.0-33.4); MEAN CORPUSCULAR HGB CONC 33.7 g/dL (32.0-36.0); MEAN CORPUSCULAR VOLUME 90 fl (80-97); MONOCYTES % (AUTO) 12.6 % (3-13); PLATELET COUNT 156 10^3/uL (150-450); RED CELL DISTRIBUTION WIDTH 14.8 % (11.5-14.0); SEGMENTED NEUTROPHILS % (AUTO) 75.2 % (42-78); TOTAL CELLS COUNTED % (AUTO) 100 %
[2018-03-20 15:53] LABS: ALANINE AMINOTRANSFERASE 31 U/L (21-72); ALBUMIN 4.2 g/dL (3.5-5.0); ALKALINE PHOSPHATASE 74 U/L (38-126); ANION GAP 8 (5-19); ASPARTATE AMINO TRANSFERASE 27 U/L (17-59); BILIRUBIN,DIRECT 0.2 mg/dL (0.0-0.4); BILIRUBIN,TOTAL 0.6 mg/dL (0.2-1.3); BLOOD UREA NITROGEN 22 mg/dL (7-20); CARBON DIOXIDE 35 mmol/L (22-30); CHLORIDE 97 mmol/L (98-107); GLUCOSE 103 mg/dL (75-110); POTASSIUM 4.9 mmol/L (3.6-5.0); TOTAL PROTEIN 6.6 g/dL (6.3-8.2)
[2018-03-20 16:01] LABS: A TYPE INFLUENZA AG NEGATIVE (NEGATIVE)
[2018-03-20 16:02] LABS: B INFLUENZA AG NEGATIVE (NEGATIVE)
[2018-03-20] MEDS: MAGNESIUM SULFATE/D5W 1 GM/100 ML RTUPB IV SCH ×2 (18:03→18:24)
[2018-03-20] MEDS ORDERED: ACETAMINOPHEN 325 MG TABLET ONE (18:17)
[2018-03-20] MEDS ORDERED: OXYCODONE-ACETAMINOPHEN 5-325 MG TABLET PO PRN (18:24)
[2018-03-20] MEDS ORDERED: ACETAMINOPHEN 650 MG SUPP.RECT PR PRN (18:24)
[2018-03-20] MEDS ORDERED: MAGNESIUM HYDROXIDE SUSP 30 ML UDCUP PO PRN (18:24)
[2018-03-20] MEDS ORDERED: ONDANSETRON HCL INJ/PF 4 MG/2 ML SDV IV PRN (18:24)
--- NOTE | 2018-03-20 18:24 | PDOC H&P ---
History of Present Illness Admission Date/PCP: KAUSHIK MARSHALL MD History of Present Illness: JIMMY HAMM is a 67 year old male past medical history of morbid obesity, A. fib, osteoarthritis, erythrocytosis, DVT, obstructive sleep apnea, presenting to ED planing of worsening shortness of breath associated with productive cough, wheezing, and fever. Patient is wheelchair-bound due to his morbid obesity he is neither on home oxygen nor on CPAP at home. He denies any history of asthma/COPD, CHF, CAD, cirrhosis or any renal problems. He has history of erythrocytosis and mentions that he gets regular phlebotomy by his secondary art teacher workup was done on him and denies having any underlying myeloproliferative disorders. He denies any history of sick contacts or recent travel. In ED he was started on IV steroids, magnesium however his symptoms did not improve and he was found to be hypoxic on 2 L. Hospital was consulted for admission. Past Medical History Cardiac Medical History: Reports: Atrial Fibrillation, DVT Denies: Coronary Artery Disease, Myocardial Infarction, Hypertension Pulmonary Medical History: Reports: Respiratory Failure, Sleep Apnea Denies: Asthma, Bronchitis, Chronic Obstructive Pulmonary Disease (COPD), Pneumonia, Tuberculosis Neurological Medical History: Denies: Seizures GI Medical History: Reports: Hiatal Hernia Musculoskeltal Medical History: Reports: Arthritis - ANKLES/KNEES/SHOULDERS Psychiatric Medical History: Reports: Depression Hematology: Denies: Anemia Past Surgical History Past Surgical History: Reports: Herniorrhaphy - Umbilical hernia repair, ventral hernia Denies: Pacemaker Social History Smoking Status: Former Smoker Frequency of Alcohol Use: None Hx Recreational Drug Use: No Hx Prescription Drug Abuse: No Family History Family History: Reviewed & Not Pertinent Parental Family History Reviewed: Yes Children Family History Reviewed: Yes Sibling(s) Family History Reviewed.: Yes Medication/Allergy Home Medications: Dabigatran Etexilate Mesylate [Pradaxa 150 mg Capsule] 150 mg PO Q12 09/08/14 Diltiazem HCl [Diltiazem 24Hr Cd] 240 mg PO DAILY 09/08/14 Furosemide [Lasix 20 mg Tablet] 80 mg PO BID 09/08/14 Oxycodone HCl/Acetaminophen [Percocet 10-325 Mg Tablet] 1 each PO Q4H PRN 09/08/14 Acetazolamide [Diamox 250 mg Tab] 250 mg PO DAILY 03/19/16 Polyethylene Glycol 3350 [Miralax Powder 17 gm/Packet] 1 packet PO ASDIR PRN 03/19/16 Clindamycin HCl [Cleocin 300 mg Capsule] 300 mg PO TID #30 capsule 03/24/16 Prednisone [Deltasone 20 mg Tablet] 3 tab PO DAILY 4 Days #12 tablet 01/06/18 Allergies/Adverse Reactions: ciprofloxacin [From Cipro] Allergy (Verified 03/20/18 13:38) ciprofloxacin HCl [From Cipro] Allergy (Verified 03/20/18 13:38) Review of Systems Review of Systems: as per HPI Physical Exam Vital Signs: Temp Pulse Resp BP Pulse Ox 100.2 F 85 18 144/92 H 95 03/20/18 13:44 03/20/18 18:10 03/20/18 16:03 03/20/18 18:10 03/20/18 16:04 Intake & Output 03/19/18 03/20/18 03/21/18 06:59 06:59 06:59 Weight 213.188 kg General appearance: PRESENT: no acute distress, morbidly obese, well-developed, well-nourished Head exam: PRESENT: atraumatic, normocephalic Respiratory exam: PRESENT: decreased breath sounds, prolonged expiratory phas, wheezes. ABSENT: rales, rhonchi Pulses: PRESENT: normal dorsalis pedis pul GI/Abdominal exam: PRESENT: normal bowel sounds, soft. ABSENT: distended, guard ing, mass, organolmegaly, rebound, tenderness Extremities exam: PRESENT: full ROM, other - Bilateral lower extremity stasis dermatitis.. ABSENT: calf tenderness, clubbing, pedal edema Neurological exam: PRESENT: alert, awake, oriented to person, oriented to place, oriented to time, oriented to situation, CN II-XII grossly intact. ABSENT: motor sensory deficit Results Laboratory Results: 03/20/18 15:12 03/20/18 15:12 03/20/18 03/20/18 15:12 15:12 WBC 7.0 RBC 6.00 H Hgb 18.2 H Hct 54.0 H MCV 90 MCH 30.3 MCHC 33.7 RDW 14.8 H Plt Count 156 Seg Neutrophils % 75.2 Lymphocytes % 10.3 L Monocytes % 12.6 Eosinophils % 1.3 Basophils % 0.6 Absolute Neutrophils 5.3 Absolute Lymphocytes 0.7 Absolute Monocytes 0.9 Absolute Eosinophils 0.1 Absolute Basophils 0.0 Sodium 140.0 Potassium 4.9 Chloride 97 L Carbon Dioxide 35 H Anion Gap 8 BUN 22 H Creatinine 0.81 Est GFR ( Amer) > 60 Est GFR (Non-Af Amer) > 60 Glucose 103 Calcium 9.0 Total Bilirubin 0.6 AST 27 ALT 31 Alkaline Phosphatase 74 Total Protein 6.6 Albumin 4.2 Impressions: Chest X-Ray 03/20/18 14:09 IMPRESSION: NO ACUTE FINDINGS. Assessment & Plan - Diagnosis (1) Acute respiratory failure with hypoxia Is this a current diagnosis for this admission?: Yes Plan: Likely due to URI on top of comorbidities such as morbid obesity/OSACOPD and obesity hypoventilation. Supplemental oxygen, nebs, IV steroids, BiPAP as needed. (2) Obesity, morbid, BMI 50 or higher Is this a current diagnosis for this admission?: No Plan: Diet and lifestyle modification. Patient has considered bariatric surgery in the past. (3) Afib Qualifiers: Atrial fibrillation type: chronic Qualified Code(s): I48.2 - Chronic atrial fibrillation Is this a current diagnosis for this admission?: No Plan: Restart Pradaxa and diltiazem. Outpatient cardiology follow-up. (4) Personal history of DVT (deep vein thrombosis) Is this a current diagnosis for this admission?: No Plan: Restart Pradaxa. (5) Erythrocytosis Is this a current diagnosis for this admission?: No Plan: Likely due to chronic hypoxia caused by his obesity hypoventilation syndrome. She denies having any history of myeloproliferative or polycythemia rubra vera. He has regular outpatient follow-up with his secondary art teacher where he gets regular phlebotomy.
[2018-03-20] MEDS ORDERED: IPRATROPIUM/ALBUTEROL 0.5-2.5 MG/3 ML AMPUL NEB SCH (20:00)
--- NOTE | 2018-03-21 00:04 | Progress Note ---
Provider Note Provider Note: Crirical care: Critical care began 23:12 03/20/2018 Patient wanting to leave AGAINST MEDICAL ADVICE, but has severe oxygen desaturation when off oxygen or making any attempted activity: Patient stated that he feels like he is a lot better and wishes to go home because he cannot get anything that he wants here and he feels like his breathing is as good as it usually is, and he understands that he hyperventilates at times and has done so for quite some time, and though the monitor says that he is not doing well he is actually doing well and he is tired of people telling him that he is not able to do something when he is perfectly capable of performing the task. He wants to have his regular oxycodone 15 mg ev aliyah 4 hours while awake ordered and given he would also like to eat a heart healthy diet and would like to receive his medications that are overdue at this time Pradaxa 150 mg which is given twice daily diltiazem 240 mg which is given at at bedtime daily tizanidine 4 mg 2 p.o. 3 times daily as needed which he needs a dose as soon as possible and Lasix 40 mg which will cause him to pass a lot of urine and he wanted to be in bed when this happened because he cannot get up and go to the bathroom due to his excessive size and inability to ambulate that distance. After a good deal of discussion the patient agreed that if he were to get the medications as requested above and was able to get a meal as promised within the next 20-30 minutes he would stay and if he is unable to get his needs satisfied in that fashion he will plan to leave AGAINST MEDICAL ADVICE. We have agreed that this is a reasonable plan though I have instructed him that his respiratory status may go downhill very quickly he is willing to take that chance if he decides to leave. Critical care ended 23:31 03/20/2018 Total [id number] critical care time 19 minutes.
[2018-03-21] MEDS ORDERED: TIZANIDINE HCL 4 MG TABLET PO PRN (00:10)
[2018-03-21] MEDS ORDERED: OXYCODONE HCL IR 5 MG TABLET PO ONE (01:00)
[2018-03-21 01:06] VITALS: BP 138/103
--- NOTE | 2018-03-21 04:58 | PDOC DISCHARGE SUMMARY ---
General - Admit/Disc Date/PCP Admission Date/Primary Care Provider: 03/20/18 18:20 KAUSHIK MARSHALL MD Discharge Date: 03/21/18 - AMA shortly after 1 AM - Discharge Diagnosis (1) Acute bronchospasm Is this a current diagnosis for this admission?: Yes (2) Acute respiratory failure with hypoxia Is this a current diagnosis for this admission?: Yes (3) Acute and chronic respiratory failure ([id number]) Is this a current diagnosis for this admission?: Yes (4) Pulmonary hypertension Is this a current diagnosis for this admission?: Yes (5) Afib Is this a current diagnosis for this admission?: Yes (6) Chronic pain Is this a current diagnosis for this admission?: Yes (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 Is this a current diagnosis for this admission?: Yes (8) Obesity, morbid, BMI 50 or higher Is this a current diagnosis for this admission?: Yes - Additional Information Home Medications: Dabigatran Etexilate Mesylate [Pradaxa 150 mg Capsule] 150 mg PO Q12 09/08/14 Diltiazem HCl [Diltiazem 24Hr Cd] 240 mg PO DAILY 09/08/14 Furosemide [Lasix 20 mg Tablet] 80 mg PO BID 09/08/14 Oxycodone HCl/Acetaminophen [Percocet 10-325 Mg Tablet] 1 each PO Q4H PRN 09/08/14 Acetazolamide [Diamox 250 mg Tab] 250 mg PO DAILY 03/19/16 Polyethylene Glycol 3350 [Miralax Powder 17 gm/Packet] 1 packet PO ASDIR PRN 03/19/16 Clindamycin HCl [Cleocin 300 mg Capsule] 300 mg PO TID #30 capsule 03/24/16 Prednisone [Deltasone 20 mg Tablet] 3 tab PO DAILY 4 Days #12 tablet 01/06/18 History of Present Illness Patient complains of: dyspnea History of Present Illness: JIMMY HAMM is a 67 year old male past medical history of morbid obesity, A. fib, osteoarthritis, erythrocytosis, DVT, obstructive sleep apnea, presenting to ED planing of worsening shortness of breath associated with productive cough, wheezing, and fever. Patient is wheelchair-bound due to his morbid obesity he is neither on home oxygen nor on CPAP at home. He denies any history of asthma/COPD, CHF, CAD, cirrhosis or any renal problems. 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 He denies any history of sick contacts or recent travel. In ED he was started on IV steroids, magnesium however his symptoms did not improve and he was found to be hypoxic on 2 L. Hospitalist was consulted for admission. Hospital Course Hospital Course: After his initial treatment in the emergency room and his recovery and significant improvement patient became disgruntled with the fact that he was not getting his medications as quickly as he thought he should be getting them and he was not getting the pain medication that he feels like he needs as often as he needs it. Additionally he was unhappy with the food and felt that the nursing staff was not caring for his needs in a timely manner. I spoke to the patient at length and discussed a plan for which we would try to meet his needs immediately and would ask him to stay as he had significant oxygen desaturation with any effort at movement and it was not advisable for him to try to leave the hospital/emergency room. After attempts have been made it meeting the needs of the patient he still felt that he was not getting the care that he desired and he left the hospital/emergency room AGAINST MEDICAL ADVICE. Physical Exam Vital Signs: Temp Pulse Resp BP Pulse Ox 100.2 F 85 18 138/103 H 83 L 03/20/18 13:44 03/20/18 18:10 03/21/18 01:02 03/21/18 01:02 03/21/18 01:02 Intake & Output 03/19/18 03/20/18 03/21/18 23:59 23:59 23:59 Intake Total 135 Balance 135 Weight 213.188 kg General appearance: PRESENT: no acute distress, morbidly obese Head exam: PRESENT: atraumatic, normocephalic Results Laboratory Results: 03/20/18 15:12 03/20/18 15:12 03/20/18 03/20/18 15:12 15:12 WBC 7.0 RBC 6.00 H Hgb 18.2 H Hct 54.0 H MCV 90 MCH 30.3 MCHC 33.7 RDW 14.8 H Plt Count 156 Seg Neutrophils % 75.2 Lymphocytes % 10.3 L Monocytes % 12.6 Eosinophils % 1.3 Basophils % 0.6 Absolute Neutrophils 5.3 Absolute Lymphocytes 0.7 Absolute Monocytes 0.9 Absolute Eosinophils 0.1 Absolute Basophils 0.0 Sodium 140.0 Potassium 4.9 Chloride 97 L Carbon Dioxide 35 H Anion Gap 8 BUN 22 H Creatinine 0.81 Est GFR ( Amer) > 60 Est GFR (Non-Af Amer) > 60 Glucose 103 Calcium 9.0 Total Bilirubin 0.6 AST 27 ALT 31 Alkaline Phosphatase 74 Total Protein 6.6 Albumin 4.2 Impressions: Chest X-Ray 03/20/18 14:09 IMPRESSION: NO ACUTE FINDINGS. Qualifiers - * PATIENT BEING DISCHARGED WITH ANY OF THE FOLLOWING DIAGNOSIS: No Plan Discharge Plan: The patient left the hospital/emergency room AGAINST MEDICAL ADVICE. Time Spent: Less than 30 Minutes
[2018-03-21] MEDS ORDERED: LANSOPRAZOLE 30 MG TAB.RAP.DR PO SCH (06:00)
[2018-03-21] MEDS ORDERED: OXYCODONE HCL IR 5 MG TABLET PO SCH ×2 (06:00)
[2018-03-21] MEDS ORDERED: DILTIAZEM HCL 240 MG CAPSULE.CR PO SCH (10:00)
[2018-03-21] MEDS ORDERED: DABIGATRAN ETEXILATE 150 MG CAPSULE PO SCH (10:00)
[2018-03-21] MEDS ORDERED: FUROSEMIDE 20 MG TABLET PO SCH (10:00)
[2018-03-21] MEDS ORDERED: DOCUSATE SODIUM 100 MG/10 ML UDC PO SCH (10:00)
[2018-03-21] MEDS ORDERED: CEFTRIAXONE 1 GM/D5W RTU 1 GM/50 ML RTUPB IV SCH (22:00)
== END 2018-03-21 01:22 | disposition left against medical advice (07) ==
LOC: ER 13:37 → INTOOBSV 18:20 → EH 18:20
PROVIDERS: ADMIT Internal Medicine; ATTEND Internal Medicine
DX: J98.01 Acute bronchospasm (principal); J96.01 Acute respiratory failure with hypoxia; J96.21 Acute and chronic respiratory failure with hypoxia; I27.20 Pulmonary hypertension, unspecified; I48.2 Chronic atrial fibrillation; G89.29 Other chronic pain; M19.90 Unspecified osteoarthritis, unspecified site; D75.1 Secondary polycythemia; I87.2 Venous insufficiency (chronic) (peripheral); E66.2 Morbid (severe) obesity with alveolar hypoventilation; I89.0 Lymphedema, not elsewhere classified; F12.10 Cannabis abuse, uncomplicated; Z99.3 Dependence on wheelchair; Z79.01 Long term (current) use of anticoagulants; Z68.44 Body mass index [BMI] 60.0-69.9, adult; Z86.718 Personal history of other venous thrombosis and embolism; Z53.21 Procedure and treatment not carried out due to patient leaving prior to being seen by health care provider; Z98.890 Other specified postprocedural states
CPT/HCPCS: 94640 ×2; 99285; 96375; 96365; 36415; 87040; 85025; 80053; 87804; 71045; A9270 ×2; J2930; J3475; G0378; J7620

== ENCOUNTER 2018-03-21 13:48 | Emergency (ER) | payer MEDICARE ==
[2018-03-21] MEDS ORDERED: IPRATROPIUM/ALBUTEROL 0.5-2.5 MG/3 ML AMPUL NEB ONE ×2 (15:50→18:13)
[2018-03-21] MEDS ORDERED: METHYLPREDNISOLONE INJ 125 MG/2 ML SDV IV ONE (15:52)
--- NOTE | 2018-03-21 15:54 | ER Document Report ---
ED Medical Screen (RME) - General Chief Complaint: Cough Stated Complaint: COUGH Time Seen by Provider: 03/21/18 15:48 Primary Care Provider: KAUSHIK MARSHALL MD [Primary Care Provider] - Follow up as needed Notes: 67-year-old morbidly obese male presents the emergency department with complaints of productive cough with green sputum and wheezing. He states that is been going on for 5 days and is getting worse. Patient was seen in the emergency department yesterday and admitted to the hospital. Patient left AGAINST MEDICAL ADVICE because he did not get a hospital bed, foods, pain medication fast enough. Patient is coming back today because he is continuing to have his symptoms. Patient states that he is a former smoker. He denies a history of COPD. He is not on home oxygen. He does not use any home nebulizer treatments. I have greeted and performed a rapid initial assessment of this patient. A comprehensive ED assessment and evaluation of the patient, analysis of test results and completion of the medical decision making process will be conducted by additional ED providers. PHYSICAL EXAMINATION: GENERAL: Well-appearing, well-nourished and in no acute distress. HEAD: Atraumatic, normocephalic. EYES: Pupils equal round extraocular movements intact, conjunctiva are normal. ENT: Nares patent NECK: Normal range of motion LUNGS: No respiratory distress. mild wheezing. TRAVEL OUTSIDE OF THE [place] IN LAST 30 DAYS: No - Related Data Allergies/Adverse Reactions: ciprofloxacin [From Cipro] Allergy (Verified 03/20/18 13:38) ciprofloxacin HCl [From Cipro] Allergy (Verified 03/20/18 13:38) Past Medical History - Social History Chew tobacco use (# tins/day): No Frequency of alcohol use: None Drug Abuse: Marijuana - Past Medical History Cardiac Medical History: Reports: Hx Atrial Fibrillation, Hx DVT Denies: Hx Coronary Artery Disease, Hx Heart Attack, Hx Hypertension Pulmonary Medical History: Reports: Hx Respiratory Failure, Hx Sleep Apnea Denies: Hx Asthma, Hx Bronchitis, Hx COPD, Hx Pneumonia, Hx Tuberculosis Neurological Medical History: Denies: Hx Cerebrovascular Accident, Hx Seizures Renal/ Medical History: Denies: Hx Peritoneal Dialysis GI Medical History: Reports: Hx Hiatal Hernia, Hx Endoscopy Musculoskeltal Medical History: Reports Hx Arthritis - ANKLES/KNEES/SHOULDERS, Reports Hx Musculoskeletal Deformity, Reports Hx Musculoskeletal Trauma Skin Medical History: Reports Hx Cellulitis Psychiatric Medical History: Reports: Hx Anxiety, Hx Depression Past Surgical History: Reports: Hx Abdominal Surgery - hernia repair, Hx Herniorrhaphy - Umbilical hernia repair, ventral hernia, Hx Testicular Surgery. Denies: Hx Pacemaker - Immunizations Hx Diphtheria, Pertussis, Tetanus Vaccination: Yes Physical Exam - Vital signs Vitals: Temp Pulse Resp BP Pulse Ox 97.5 F 51 L 20 131/79 H 96 03/21/18 13:54 03/21/18 13:54 03/21/18 13:54 03/21/18 13:54 03/21/18 13:54 Course - Vital Signs Vital signs: Temp Pulse Resp BP Pulse Ox 97.5 F 51 L 20 131/79 H 96 03/21/18 13:54 03/21/18 13:54 03/21/18 13:54 03/21/18 13:54 03/21/18 13:54 Doctor's Discharge - Discharge Referrals: KAUSHIK MARSHALL MD [Primary Care Provider] - Follow up as needed
--- NOTE | 2018-03-21 16:24 | RADIOLOGY REPORT (SQ) ---
EXAM DESCRIPTION: CHEST SINGLE VIEW COMPLETED DATE/TIME: 03/21/2018 3:59 pm REASON FOR STUDY: wheezing COMPARISON: 03/20/2018 EXAM PARAMETERS: NUMBER OF VIEWS: One view. TECHNIQUE: Single frontal radiographic view of the chest acquired. RADIATION DOSE: NA LIMITATIONS: None. FINDINGS: LUNGS AND PLEURA: No opacities, masses or pneumothorax. No pleural effusion. MEDIASTINUM AND HILAR STRUCTURES: There is persistent slight fullness in the right hilum this is unch anged from most recent exam but appears new when compared to 2017. HEART AND VASCULAR STRUCTURES: The heart remains enlarged. BONES: No acute findings. HARDWARE: None in the chest. OTHER: No other significant finding. IMPRESSION: Fullness in the right hilum. Focal lesion or adenopathy cannot be excluded. This is ne w from 2017. TECHNICAL DOCUMENTATION: JOB ID: [id number] [employer]- All Rights Reserved Reading location - IP/workstation name: [email or web address]
[2018-03-21] MEDS ORDERED: BUDESONIDE NEB 0.5 MG/2 ML AMPUL NEB ONE (18:14)
--- NOTE | 2018-03-21 18:44 | ER Document Report ---
ED General - General Chief Complaint: Cough Stated Complaint: COUGH Time Seen by Provider: 03/21/18 15:48 Primary Care Provider: KAUSHIK MARSHALL MD [Primary Care Provider] - Follow up tomorrow Notes: Patient is a 67-year-old male with history of lymphedema, morbid obesity that presents to the emergency department for chief complaint of shortness of breath, cough and wheezing. Patient was seen in the emergency department yesterday by myself, and was admitted to the hospital, he states that he was kept in the emergency department until around 1 AM, states that he did not receive anything to eat, and was not receiving his pain medication that he takes at home so he decided to leave the hospital AGAINST MEDICAL ADVICE at that point. He states at home today he is still feeling short of breath and wheezing and did plan on coming back. He states he has been on oxygen in the past, but since the last 200 pounds, he is not been needing home oxygen. He denies a history of asthma or COPD, but states that he is using inhaler in the past, and he has an old one is about 5 years old he did try using without much improvement so he decided come to the emergency department. He denies any fevers, chills, night sweats, chest pain, nausea, vomiting or abdominal pain associated with this. Past Medical History: Atrial fibrillation, hypertension, osteoarthritis Past Surgical History: Ventral hernia repair Social History: Denies current tobacco, alcohol use, admits to occasional marijuana use, primary care physician is Dr. Marshall Family History: Reviewed and noncontributory for presenting illness Allergies: Reviewed, see documented allergy list. REVIEW OF SYSTEMS: Other than noted above, the 12 point review of systems was reviewed with the patient and were negative, all pertinent findings are included in the HPI. PHYSICAL EXAMINATION: Vital signs reviewed, nursing noted reviewed. GENERAL: Morbidly obese male, with some increased work of breathing HEAD: Atraumatic, normocephalic. EYES: Eyes appear normal, extraocular movements intact, sclera anicteric, conjunctiva are normal. ENT: nares patent, oropharynx clear without exudates. Moist mucous membranes. NECK: Normal range of motion, supple without lymphadenopathy LUNGS: Inspiratory and expiratory wheezing noted throughout all lung haji, with conversational dyspnea and mild increased work of breathing HEART: Heart rate regular, with a regular rhythm, atrial fibrillation with controlled rate on telemetry ABDOMEN: Soft, obese, nontender, normoactive bowel sounds. No rebound, guarding, or rigidity. No masses appreciated. EXTREMITIES: Nontender, good range of motion, no pitting or edema. NEUROLOGICAL: No focal neurological deficits. Moves all extremities spontaneously Motor and sensory grossly intact on exam. PSYCH: Normal mood, normal affect. SKIN: Warm, Dry, normal turgor, no rashes or lesions noted on exposed skin TRAVEL OUTSIDE OF THE [place] IN LAST 30 DAYS: No - Related Data Allergies/Adverse Reactions: ciprofloxacin [From Cipro] Allergy (Verified 03/20/18 13:38) ciprofloxacin HCl [From Cipro] Allergy (Verified 03/20/18 13:38) Past Medical History - Social History Smoking Status: Former Smoker Chew tobacco use (# tins/day): No Frequency of alcohol use: None Drug Abuse: Marijuana Family History: Reviewed & Not Pertinent Patient has suicidal ideation: No Patient has homicidal ideation: No - Past Medical History Cardiac Medical History: Reports: Hx Atrial Fibrillation, Hx DVT Denies: Hx Coronary Artery Disease, Hx Heart Attack, Hx Hypertension Pulmonary Medical History: Reports: Hx Respiratory Failure, Hx Sleep Apnea Denies: Hx Asthma, Hx Bronchitis, Hx COPD, Hx Pneumonia, Hx Tuberculosis Neurological Medical History: Denies: Hx Cerebrovascular Accident, Hx Seizures Renal/ Medical History: Denies: Hx Peritoneal Dialysis GI Medical History: Reports: Hx Hiatal Hernia, Hx Endoscopy Musculoskeletal Medical History: Reports Hx Arthritis - ANKLES/KNEES/SHOULDERS, Reports Hx Musculoskeletal Deformity, Reports Hx Musculoskeletal Trauma Skin Medical History: Reports Hx Cellulitis Psychiatric Medical History: Reports: Hx Anxiety, Hx Depression Past Surgical History: Reports: Hx Abdominal Surgery - hernia repair, Hx Herniorrhaphy - Umbilical hernia repair, ventral hernia, Hx Testicular Surgery. Denies: Hx Pacemaker - Immunizations Hx Diphtheria, Pertussis, Tetanus Vaccination: Yes Hx Pneumococcal Vaccination: 11/09/15 Physical Exam - Vital signs Vitals: Temp Pulse Resp BP Pulse Ox 97.5 F 51 L 20 131/79 H 96 03/21/18 13:54 03/21/18 13:54 03/21/18 13:54 03/21/18 13:54 03/21/18 13:54 Course - Re-evaluation Re-evalutation: Patient seen and examined vital signs reviewed. Laboratory data and imaging were ordered as appropriate for the patient's p resenting symptoms and complaint, with consideration of any critical or life threatening conditions that may be associated with their obtained history and exam as noted above. Patient was treated with DuoNeb breathing treatments, and IV Solu-Medrol Results were reviewed when available and demonstrated mild right-sided hilar fullness, seen on yesterday's x-ray, no consolidative pneumonia noted. The patient was re-evaluated and was improved, today he was not hypoxic, his pulse ox was ranging from 90-94%, he was given budesonide inhaled, in addition to the DuoNeb breathing treatments, on repeat evaluation the patient was feeling better, and I felt comfortable discharging him home at this point, with prescriptions for prednisone, and azithromycin, for possible right-sided pneumonia, and he was dispensed an albuterol inhaler advised to use every 4 hours. His blood work did demonstrate polycythemia, he has a history of this in the past, and is slightly worse today from yesterday, but he does see dramatic director for this. Evaluation was most consistent with acute bronchospasm, productive cough, possible right-sided pneumonia, hemoconcentration Results were discussed with the patient at this point, after careful consideration I feel that that patient can be discharged from the emergency department, the patient was educated treatments and reasons to return to the emergency department based on their presumed diagnosis as noted above, they were advised to followup with a primary care physician in 2-3 days. Patient was agreeable to plan of care. *Note is created using voice recognition software and may contain spelling, syntax or grammatical errors. Laboratory 03/21/18 03/21/18 03/21/18 18:25 18:25 19:22 WBC Cancelled RBC Cancelled Hgb Cancelled Hct Cancelled MCV Cancelled MCH Cancelled MCHC Cancelled RDW Cancelled Plt Count Cancelled Total Counted Seg Neutrophils % Cancelled Seg Neuts % (Manual) Lymphocytes % Cancelled Lymphocytes % (Manual) Monocytes % Cancelled Monocytes % (Manual) Eosinophils % Cancelled Eosinophils % (Manual) Basophils % Cancelled Basophils % (Manual) Metamyelocytes % Absolute Neutrophils Cancelled Abs Neuts (Manual) Absolute Lymphocytes Cancelled Abs Lymphs (Manual) Absolute Monocytes Cancelled Abs Monocytes (Manual) Absolute Eosinophils Cancelled Absolute Eos (Manual) Absolute Basophils Cancelled Abs Basophils (Manual) Platelet Estimate Cancelled Platelet Comment Carbonic Acid 1.35 HCO3/H2CO3 Ratio 21:1 ABG pH 7.43 ABG pCO2 44.7 ABG pO2 55.9 L ABG HCO3 28.7 H ABG Total CO2 30.0 H ABG O2 Saturation 89.7 L ABG Base Excess 3.4 FiO2 ROOM AIR Sodium Cancelled Potassium Cancelled Chloride Cancelled Carbon Dioxide Cancelled Anion Gap Cancelled BUN Cancelled Creatinine Cancelled Est GFR ( Amer) Cancelled Est GFR (Non-Af Amer) Cancelled Glucose Cancelled Calcium Cancelled Total Bilirubin Cancelled Direct Bilirubin Cancelled Neonat Total Bilirubin Cancelled Neonat Direct Bilirubin Cancelled Neonat Indirect Bili Cancelled AST Cancelled ALT Cancelled Alkaline Phosphatase Cancelled Total Protein Cancelled Albumin Cancelled Slides for Path Review Cancelled 03/21/18 03/21/18 19:27 19:27 WBC 11.5 H RBC 6.64 H Hgb 20.2 H* Hct 59.9 H MCV 90 MCH 30.5 MCHC 33.7 RDW 15.1 H Plt Count 185 Total Counted 100 Seg Neutrophils % Not Reportable Seg Neuts % (Manual) 87 H Lymphocytes % Not Reportable Lymphocytes % (Manual) 8 L Monocytes % Not Reportable Monocytes % (Manual) 4 Eosinophils % Not Reportable Eosinophils % (Manual) 0 Basophils % Not Reportable Basophils % (Manual) 0 Metamyelocytes % 1 H Absolute Neutrophils Not Reportable Abs Neuts (Manual) 10.1 H Absolute Lymphocytes Not Reportable Abs Lymphs (Manual) 0.9 Absolute Monocytes Not Reportable Abs Monocytes (Manual) 0.5 Absolute Eosinophils Not Reportable Absolute Eos (Manual) 0.0 Absolute Basophils Not Reportable Abs Basophils (Manual) 0.0 Platelet Estimate Platelet Comment ADEQUATE Carbonic Acid HCO3/H2CO3 Ratio ABG pH ABG pCO2 ABG pO2 ABG HCO3 ABG Total CO2 ABG O2 Saturation ABG Base Excess FiO2 Sodium 142.8 Potassium 5.0 Chloride 98 Carbon Dioxide 33 H Anion Gap 12 BUN 32 H Creatinine 0.97 Est GFR ( Amer) > 60 Est GFR (Non-Af Amer) > 60 Glucose 116 H Calcium 9.8 Total Bilirubin 0.7 Direct Bilirubin 0.4 Neonat Total Bilirubin Not Reportable Neonat Direct Bilirubin Not Reportable Neonat Indirect Bili Not Reportable AST 34 ALT 18 L Alkaline Phosphatase 81 Total Protein 8.2 Albumin 4.9 Slides for Path Review Chest X-Ray 03/21/18 15:50 IMPRESSION: Fullness in the right hilum. Focal lesion or adenopathy cannot be excluded. This is new from 2017. - Vital Signs Vital signs: Temp Pulse Resp BP Pulse Ox 98.6 F 96 16 144/90 H 93 03/21/18 21:25 03/21/18 21:25 03/21/18 21:25 03/21/18 21:25 03/21/18 21:25 - Laboratory Result Diagrams: 03/21/18 19:27 03/21/18 19:27 Laboratory results interpreted by me: 03/21/18 03/21/18 03/21/18 19:22 19:27 19:27 WBC 11.5 H RBC 6.64 H Hgb 20.2 H* Hct 59.9 H RDW 15.1 H Seg Neuts % (Manual) 87 H Lymphocytes % (Manual) 8 L Metamyelocytes % 1 H Abs Neuts (Manual) 10.1 H ABG pO2 55.9 L ABG HCO3 28.7 H ABG Total CO2 30.0 H ABG O2 Saturation 89.7 L Carbon Dioxide 33 H BUN 32 H Glucose 116 H ALT 18 L Discharge - Discharge Clinical Impression: Acute bronchospasm, Productive cough Condition: Stable Disposition: HOME, SELF-CARE Instructions: Bronchitis With Bronchospasm (Wheezing) ([facility]) Additional Instructions: Please use the albuterol inhaler, 2 puffs every 4 hours for the next 5 days, you may use it every 2 hours, but if you have to do this more than 2 times in a row every 2 hours then you should consider coming back to the emergency department. Please take the prescribed prednisone as directed. Please follow-up with your primary care physician. Please take the azithromycin as directed as well. Prescriptions: RX: Azithromycin [Zithromax 250 mg Tablet] 250 mg PO ASDIR #6 tablet RX: Prednisone [Deltasone 20 mg Tablet] 3 tab PO DAILY 5 Days tablet Referrals: KAUSHIK MARSHALL MD [Primary Care Provider] - Follow up tomorrow
[2018-03-21 19:34] LABS: ARTERIAL BLOOD BASE EXCESS 3.4 mmol/L; ARTERIAL BLOOD H2CO3 1.35 mmol/L (1.05-1.35); ARTERIAL BLOOD HCO3 28.7 mmol/L (20-24); ARTERIAL BLOOD O2 SATURATION 89.7 % (94-98); ARTERIAL BLOOD PCO2 44.7 mmHg (35-45); ARTERIAL BLOOD PH 7.43 (7.35-7.45); ARTERIAL BLOOD PO2 55.9 mmHg (80-100)
[2018-03-21 19:36] LABS: ARTERIAL BLOOD FIO2 ROOM AIR
[2018-03-21 19:59] LABS: MEAN CORPUSCULAR HEMOGLOBIN 30.5 pg (27.0-33.4); MEAN CORPUSCULAR HGB CONC 33.7 g/dL (32.0-36.0); MEAN CORPUSCULAR VOLUME 90 fl (80-97); PLATELET COUNT 185 10^3/uL (150-450); RED BLOOD COUNT 6.64 10^6/uL (4.35-5.55); RED CELL DISTRIBUTION WIDTH 15.1 % (11.5-14.0); WHITE BLOOD COUNT 11.5 10^3/uL (4.0-10.5)
[2018-03-21 20:01] LABS: HEMATOCRIT 59.9 % (37.9-51.0)
[2018-03-21 20:04] LABS: HEMOGLOBIN 20.2 g/dL (13.5-17.0)
[2018-03-21 20:17] LABS: ABSOLUTE LYMPHOCYTES# (MANUAL) 0.9 10^3/uL (0.5-4.7); ABSOLUTE MONOCYTES # (MANUAL) 0.5 10^3/uL (0.1-1.4); ABSOLUTE NEUTROPHILS# (MANUAL) 10.1 10^3/uL (1.7-8.2); ALANINE AMINOTRANSFERASE 18 U/L (21-72); ALBUMIN 4.9 g/dL (3.5-5.0); ALKALINE PHOSPHATASE 81 U/L (38-126); ANION GAP 12 (5-19); ASPARTATE AMINO TRANSFERASE 34 U/L (17-59); BASOPHILS % (MANUAL) 0 % (0-2); BILIRUBIN,DIRECT 0.4 mg/dL (0.0-0.4); BILIRUBIN,TOTAL 0.7 mg/dL (0.2-1.3); BLOOD UREA NITROGEN 32 mg/dL (7-20); CALCIUM 9.8 mg/dL (8.4-10.2); CARBON DIOXIDE 33 mmol/L (22-30); CHLORIDE 98 mmol/L (98-107); EOSINOPHILS % (MANUAL) 0 % (0-6); GLUCOSE 116 mg/dL (75-110); LYMPHOCYTES % (MANUAL) 8 % (13-45); METAMYELOCYTES % (MANUAL) 1 % (0); MONOCYTES % (MANUAL) 4 % (3-13); SEGMENTED NEUTROPHILS % (MAN) 87 % (42-78); SODIUM 142.8 mmol/L (137-145); TOTAL CELLS COUNTED 100; TOTAL PROTEIN 8.2 g/dL (6.3-8.2)
[2018-03-21 20:31] LABS: PLATELET COMMENT ADEQUATE
[2018-03-21] MEDS ORDERED: ALBUTEROL SULFATE HFA (90 MCG/PUFF) 8 GM MDI (1 MDI/ER DISP) IH ONE (20:53)
[2018-03-21 21:26] VITALS: BP 144/90
== END 2018-03-21 21:26 | disposition home or self-care (01) ==
LOC: ER 13:48
DX: J98.01 Acute bronchospasm (principal); R05 Cough; R06.02 Shortness of breath; I10 Essential (primary) hypertension; Z87.891 Personal history of nicotine dependence
CPT/HCPCS: 99283; 36415; 87040; 82803; 85025; 80053; 71045; J2930; J3490; A9270; J7620

== ENCOUNTER → 2018-05-11 | Outpatient (CLI) | payer MEDICARE ==
[~2018-05-11] MED LIST: ALBUTEROL SULFATE 0.083% NEB 2.5 MG/3 ML AMPUL NEB ONE
--- NOTE | 2018-05-11 11:03 | RADIOLOGY REPORT (SQ) ---
03/21 EXAM DESCRIPTION: CHEST 2 VIEWS COMPLETED DATE/TIME: 05/11/2018 10:24 am REASON FOR STUDY: LOCALIZED ENLARGED LYMPHNODES (R59.0) COMPARISON: 03/21/2018 EXAM PARAMETERS: NUMBER OF VIEWS: two views TECHNIQUE: Digital Frontal and Lateral radiographic views of the chest acquired. RADIATION DOSE: NA LIMITATIONS: none FINDINGS: LUNGS AND PLEURA: No focal consolidation. No significant effusion. No pneumothorax. MEDIASTINUM AND HILAR STRUCTURES: Bilateral central vascular prominence. HEART AND VASCULAR STRUCTURES: Enlarged heart. Central vascular prominence. No overt edema. BONES: No acute bony abnormality. HARDWARE: None in the chest. OTHER: No other significant finding. IMPRESSION: Enlarged cardiac silhouette with central vascular prominence. No overt edema. No discrete lesion or adenopathy although CT would be more sensitive for evaluation of hilar or media stinal pathology. TECHNICAL DOCUMENTATION: JOB ID: [id number] [employer] All Rights Reserved Reading location - IP/workstation name: [email or web address]
[2018-05-11 11:06] LABS: ABSOLUTE BASOPHILS # (AUTO) 0.1 10^3/uL (0.0-0.2); ABSOLUTE EOSINOPHILS # (AUTO) 0.3 10^3/uL (0.0-0.6); ABSOLUTE LYMPHOCYTES (AUTO) 1.7 10^3/uL (0.5-4.7); ABSOLUTE MONOCYTES (AUTO) 0.5 10^3/uL (0.1-1.4); ABSOLUTE NEUT (AUTO) 4.6 10^3/uL (1.7-8.2); EOSINOPHILS % (AUTO) 4.5 % (0-6); HEMATOCRIT 53.8 % (37.9-51.0); HEMOGLOBIN 18.1 g/dL (13.5-17.0); LYMPHOCYTES % (AUTO) 24.5 % (13-45); MEAN CORPUSCULAR HGB CONC 33.7 g/dL (32.0-36.0); MEAN CORPUSCULAR VOLUME 89 fl (80-97); MONOCYTES % (AUTO) 6.4 % (3-13); PLATELET COUNT 163 10^3/uL (150-450); RED BLOOD COUNT 6.03 10^6/uL (4.35-5.55); RED CELL DISTRIBUTION WIDTH 15.7 % (11.5-14.0); SEGMENTED NEUTROPHILS % (AUTO) 63.6 % (42-78); TOTAL CELLS COUNTED % (AUTO) 100 %; WHITE BLOOD COUNT 7.1 10^3/uL (4.0-10.5)
[2018-05-11 12:24] LABS: BLOOD UREA NITROGEN 26 mg/dL (7-20); CALCIUM 9.6 mg/dL (8.4-10.2); GLUCOSE 108 mg/dL (75-110)
[2018-05-11 12:25] LABS: ANION GAP 6 (5-19); CARBON DIOXIDE 36 mmol/L (22-30); CHLORIDE 99 mmol/L (98-107); POTASSIUM 4.8 mmol/L (3.6-5.0); SODIUM 140.7 mmol/L (137-145)
--- NOTE | 2018-05-11 16:08 | RADIOLOGY REPORT (SQ) ---
EXAM DESCRIPTION: U/S THYROID/SFT TISS HD NECK COMPLETED DATE/TIME: 05/11/2018 11:28 am REASON FOR STUDY: LOCALIZED ENLARGED LYMPH NODES (R59.0) R59.0 LOCALIZED ENLARGED LYMPH NODES Z79.0 1 JAIL (CURRENT) USE OF ANTICOAGULANTS COMPARISON: None. TECHNIQUE: Dynamic and static grayscale images acquired of the localized site of clinical concern an d recorded on PACS. Additional selected color Doppler and spectral images recorded. SITE OF CONCERN: Bilateral submandibular region. LIMITATIONS: None. FINDINGS: There are small lymph nodes located adjacent to both right and left submandibular glands. These measure approximately 6 mm and are circumscribed with smooth margins and fatty irasema. IMPRESSION: SMALL LYMPH NODES ADJACENT TO THE SUBMANDIBULAR GLANDS. NO WORRISOME SONOGRAPHIC APPEAR ANCE TECHNICAL DOCUMENTATION: JOB ID: [id number] [employer]- All Rights Reserved Reading location - IP/workstation name: [email or web address]
--- NOTE | 2018-05-12 15:10 | Pulmonary Function Test ---
Pulmonary Function Test Date of Procedure:: 05/12/18 INDICATION:: COPD Referring Provider: Dr. Sarah Puga Hog Ringer: Francine Naqvi MIXER DI[employer]OND POWDER, FACILITIES SPECIALIST - Report Spirometry: FVC 2.79 L 63% postbronchodilator 3.18 L 72% FEV1 1.80 L 52% postbronchodilator 2.11 L 60% FEV1/FVC % 65 postbronchodilator 66 predicted 79 FEF 25-75% 0.98 L 28% postbronchodilator 1.11 L 32% Impression: Mild obstructive ventilatory defect with good response to bronchodilator therapy. Potential restrictive defect. Restrictive defect cannot be diagnosed on the basis of spirometry alone. (Restrictive defect may mask the degree of o bstruction.) If clinically indicated complete pulmonary function test would be warranted.
== END ==
LOC: RAD 09:39
PROVIDERS: ATTEND Family Medicine
DX: I50.22 Chronic systolic (congestive) heart failure (principal); J44.9 Chronic obstructive pulmonary disease, unspecified; R59.0 Localized enlarged lymph nodes; Z79.01 Long term (current) use of anticoagulants
CPT/HCPCS: 36415; 85025; 80048; 71046; 76536; 94060; A9270

== ENCOUNTER → 2018-09-15 | Outpatient (CLI) | payer MEDICARE ==
[2018-09-15 11:42] LABS: ALBUMIN 4.1 g/dL (3.5-5.0); ALKALINE PHOSPHATASE 70 U/L (38-126); ASPARTATE AMINO TRANSFERASE 23 U/L (17-59); BILIRUBIN,DIRECT 0.3 mg/dL (0.0-0.4); BILIRUBIN,TOTAL 0.7 mg/dL (0.2-1.3); BLOOD UREA NITROGEN 24 mg/dL (7-20); CALCIUM 9.3 mg/dL (8.4-10.2); CHOLESTEROL 189.54 mg/dL (0-200); GLUCOSE 101 mg/dL (75-110); POTASSIUM 5.2 mmol/L (3.6-5.0); TOTAL PROTEIN 6.8 g/dL (6.3-8.2); TRIGLYCERIDES 123 mg/dL (<150)
[2018-09-15 11:53] LABS: DIRECT LDL 136 mg/dL (<100)
[2018-09-15 11:54] LABS: FREE T3 4.25 pg/mL (2.77-5.27); FREE T4 (FREE THYROXINE) 1.01 ng/dL (0.78-2.19)
[2018-09-15 11:56] LABS: ANION GAP 7 (5-19); CARBON DIOXIDE 34 mmol/L (22-30); CHLORIDE 97 mmol/L (98-107)
[2018-09-15 12:08] LABS: THYROID STIMULATING HORMONE 4.38 uIU/mL (0.47-4.68)
== END ==
LOC: OD 10:21
PROVIDERS: ATTEND Otolaryngology
DX: J01.91 Acute recurrent sinusitis, unspecified (principal); E03.9 Hypothyroidism, unspecified; E78.5 Hyperlipidemia, unspecified; E53.9 Vitamin B deficiency, unspecified
CPT/HCPCS: 36415; 80053; 80061; 82607; 82785; 84439; 84443; 84481; 86003

== ENCOUNTER → 2018-09-15 | Outpatient (CLI) | payer MEDICARE ==
--- NOTE | 2018-09-15 16:48 | WOMENS IMAGING REPORT ---
EXAM DESCRIPTION: BILAT DIAGNOSTIC MAMMO W/CAD; U/S BREAST UNILAT LIMITED COMPLETED DATE/TIME: 09/15/2018 9:30 am; 09/15/2018 10:09 am REASON FOR STUDY: N63.42; LEFT BREAST LUMP N63.42 UNSPECIFIED LUMP IN LEFT BREAST, SUBAREOLAR COMPARISON: None. EXAM PARAMETERS: Standard craniocaudal, 90 mediolateral and mediolateral oblique views of each santi st recorded using digital acquisition. Read with the assistance of CAD: .[facility] - [employer] Version 9.2 LIMITATIONS: None. FINDINGS: RIGHT BREAST MASSES: No suspicious masses. CALCIFICATIONS: No new or suspicious calcifications. ARCHITECTURAL DISTORTION: None. DEVELOPING DENSITY: None. ASYMMETRY: None noted. OTHER: No other significant findings. LEFT BREAST MASSES: No suspicious masses. CALCIFICATIONS: No new or suspicious calcifications. ARCHITECTURAL DISTORTION: None. DEVELOPING DENSITY: None. ASYMMETRY: None noted. OTHER: No other significant finding. Left male breast ultrasound: Patient indicates a palpable abnormality in the left male breast 12 o'clock position. Deep to the pa lpable abnormality, a benign-appearing intramammary vein is present without thrombosis. No gynecomas tia in the left retroareolar region. Right retroareolar ultrasound was performed, for comparison and is unremarkable. IMPRESSION: No mammographic or sonographic evidence for malignancy bilaterally Male patient BREAST DENSITY: a. The breasts are almost entirely fatty. BIRAD: ASSESSMENT: 1 Negative. RECOMMENDATION: RECOMMENDED FOLLOW UP: Clinical follow-up recommended SPECIFIC INTERVENTION/IMAGING/CONSULTATION RECOMMENDED:No additional intervention/ imaging/consultati on needed at this time. COMMUNICATION:The negative/benign results were communicated to the patient. COMMENT: The patient has been notified of the results by letter per MQSA requirements. Additional no tification policies are in place for contacting patient with suspicious or incomplete findings. Quality ID #225: The [employer] recommends an annual screening mammogram for women aged 40 years or over. This facility utilizes a reminder system to ensure that all patients receive reminder letters, and/or direct phone calls for appointments. This includes reminders for routine scr eening mammograms, diagnostic mammograms, or other Breast Imaging Interventions when appropriate. Th is patient will be placed in the appropriate reminder system. TECHNICAL DOCUMENTATION: FINDING NUMBER: (1) ASSESSMENT: (1) JOB ID: [id number] [employer]- All Rights Reserved Reading location - IP/workstation name: [email or web address]
--- NOTE | 2018-09-15 16:48 | WOMENS IMAGING REPORT ---
EXAM DESCRIPTION: BILAT DIAGNOSTIC MAMMO W/CAD; U/S BREAST UNILAT LIMITED COMPLETED DATE/TIME: 09/15/2018 9:30 am; 09/15/2018 10:09 am REASON FOR STUDY: N63.42; LEFT BREAST LUMP N63.42 UNSPECIFIED LUMP IN LEFT BREAST, SUBAREOLAR COMPARISON: None. EXAM PARAMETERS: Standard craniocaudal, 90 mediolateral and mediolateral oblique views of each santi st recorded using digital acquisition. Read with the assistance of CAD: .[facility] - [employer] Version 9.2 LIMITATIONS: None. FINDINGS: RIGHT BREAST MASSES: No suspicious masses. CALCIFICATIONS: No new or suspicious calcifications. ARCHITECTURAL DISTORTION: None. DEVELOPING DENSITY: None. ASYMMETRY: None noted. OTHER: No other significant findings. LEFT BREAST MASSES: No suspicious masses. CALCIFICATIONS: No new or suspicious calcifications. ARCHITECTURAL DISTORTION: None. DEVELOPING DENSITY: None. ASYMMETRY: None noted. OTHER: No other significant finding. Left male breast ultrasound: Patient indicates a palpable abnormality in the left male breast 12 o'clock position. Deep to the pa lpable abnormality, a benign-appearing intramammary vein is present without thrombosis. No gynecomas tia in the left retroareolar region. Right retroareolar ultrasound was performed, for comparison and is unremarkable. IMPRESSION: No mammographic or sonographic evidence for malignancy bilaterally Male patient BREAST DENSITY: a. The breasts are almost entirely fatty. BIRAD: ASSESSMENT: 1 Negative. RECOMMENDATION: RECOMMENDED FOLLOW UP: Clinical follow-up recommended SPECIFIC INTERVENTION/IMAGING/CONSULTATION RECOMMENDED:No additional intervention/ imaging/consultati on needed at this time. COMMUNICATION:The negative/benign results were communicated to the patient. COMMENT: The patient has been notified of the results by letter per MQSA requirements. Additional no tification policies are in place for contacting patient with suspicious or incomplete findings. Quality ID #225: The [employer] recommends an annual screening mammogram for women aged 40 years or over. This facility utilizes a reminder system to ensure that all patients receive reminder letters, and/or direct phone calls for appointments. This includes reminders for routine scr eening mammograms, diagnostic mammograms, or other Breast Imaging Interventions when appropriate. Th is patient will be placed in the appropriate reminder system. TECHNICAL DOCUMENTATION: FINDING NUMBER: (1) ASSESSMENT: (1) JOB ID: [id number] [employer]- All Rights Reserved Reading location - IP/workstation name: [email or web address]
== END ==
LOC: WI 09:08
PROVIDERS: ATTEND Family Medicine
DX: N63.42 Unspecified lump in left breast, subareolar (principal)
CPT/HCPCS: 76642; 77066

== ENCOUNTER 2018-11-09 14:23 | Emergency (ER) | payer MEDICARE ==
[2018-11-09] MEDS ORDERED: PREDNISONE 20 MG TABLET PO ONE (14:58)
[2018-11-09] MEDS ORDERED: IPRATROPIUM/ALBUTEROL 0.5-2.5 MG/3 ML AMPUL NEB ONE ×2 (14:58→16:08)
--- NOTE | 2018-11-09 15:01 | ER Document Report ---
ED Medical Screen (RME) - General Chief Complaint: Breathing Difficulty Stated Complaint: WHEEZING Time Seen by Provider: 11/09/18 14:48 Primary Care Provider: KAUSHIK MARSHALL MD [Primary Care Provider] - Follow up as needed Notes: Patient is a 68-year-old male presents to emergency department with a chief complaint of wheezing. Patient reports yesterday he developed a subjective fever, sore throat and wheezing. Patient reports he did use his albuterol inhaler with minimal relief. Patient reports he has had a productive cough with green phlegm. Patient reports a generalized abdominal ache. Patient denies nausea, vomiting or diarrhea. TRAVEL OUTSIDE OF THE [place] IN LAST 30 DAYS: No - Related Data Allergies/Adverse Reactions: ciprofloxacin [From Cipro] Allergy (Verified 11/09/18 14:48) ciprofloxacin HCl [From Cipro] Allergy (Verified 11/09/18 14:48) Past Medical History - Social History Chew tobacco use (# tins/day): No Frequency of alcohol use: None Drug Abuse: None - Past Medical History Cardiac Medical History: Reports: Hx Atrial Fibrillation, Hx DVT Denies: Hx Coronary Artery Disease, Hx Heart Attack, Hx Hypertension Pulmonary Medical History: Reports: Hx Respiratory Failure, Hx Sleep Apnea Denies: Hx Asthma, Hx Bronchitis, Hx COPD, Hx Pneumonia, Hx Tuberculosis Neurological Medical History: Denies: Hx Cerebrovascular Accident, Hx Seizures Renal/ Medical History: Denies: Hx Peritoneal Dialysis GI Medical History: Reports: Hx Hiatal Hernia, Hx Endoscopy Musculoskeltal Medical History: Reports Hx Arthritis - ANKLES/KNEES/SHOULDERS, Reports Hx Musculoskeletal Deformity, Reports Hx Musculoskeletal Trauma Skin Medical History: Reports Hx Cellulitis Psychiatric Medical History: Reports: Hx Anxiety, Hx Depression Past Surgical History: Reports: Hx Abdominal Surgery - hernia repair, Hx Herniorrhaphy - Umbilical hernia repair, ventral hernia, Hx Testicular Surgery. Denies: Hx Pacemaker - Immunizations Hx Diphtheria, Pertussis, Tetanus Vaccination: Yes Physical Exam - Respiratory Breath sounds: Productive cough, Wheezing Course - Re-evaluation Re-evalutation: 11/09/18 15:00 Patient is alert and oriented x3 in triage. Patient is able to talk in complete sentences but does have expiratory wheezing noted throughout. Patient's systolic blood pressure is 88. Will obtain basic labs, lactate, DuoNeb and a dose of steroids. I have greeted and performed a rapid initial assessment of this patient. A comprehensive ED assessment and evaluation of the patient, analysis of test results and completion of the medical decision making process will be conducted by additional ED providers. Doctor's Discharge - Discharge Referrals: KAUSHIK MARSHALL MD [Primary Care Provider] - Follow up as needed
--- NOTE | 2018-11-09 15:52 | RADIOLOGY REPORT (SQ) ---
EXAM DESCRIPTION: CHEST 2 VIEWS COMPLETED DATE/TIME: 11/09/2018 3:41 pm REASON FOR STUDY: productive cough, subjective fever COMPARISON: 05/11/2018 EXAM PARAMETERS: NUMBER OF VIEWS: two views TECHNIQUE: Digital Frontal and Lateral radiographic views of the chest acquired. RADIATION DOSE: NA LIMITATIONS: none FINDINGS: LUNGS AND PLEURA: No opacities, masses or pneumothorax. No pleural effusion. MEDIASTINUM AND HILAR STRUCTURES: No masses or contour abnormalities. HEART AND VASCULAR STRUCTURES: Heart is slightly enlarged. No failure. BONES: There are degenerative changes in the dorsal spine with disc space narrowing and small anterio r osteophytes. Mild thoracic scoliosis with concavity toward the left. HARDWARE: None in the chest. OTHER: No other significant finding. IMPRESSION: Mild cardiomegaly. No failure. TECHNICAL DOCUMENTATION: JOB ID: [id number] [employer]- All Rights Reserved Reading location - IP/workstation name: [email or web address]
[2018-11-09 16:35] LABS: ABSOLUTE EOSINOPHILS # (AUTO) 0.3 10^3/uL (0.0-0.6); ABSOLUTE LYMPHOCYTES (AUTO) 0.9 10^3/uL (0.5-4.7); ABSOLUTE MONOCYTES (AUTO) 0.7 10^3/uL (0.1-1.4); ABSOLUTE NEUT (AUTO) 4.3 10^3/uL (1.7-8.2); BASOPHILS % (AUTO) 0.7 % (0-2); EOSINOPHILS % (AUTO) 4.2 % (0-6); HEMATOCRIT 54.7 % (37.9-51.0); HEMOGLOBIN 18.1 g/dL (13.5-17.0); LYMPHOCYTES % (AUTO) 13.9 % (13-45); MEAN CORPUSCULAR HEMOGLOBIN 30.2 pg (27.0-33.4); MEAN CORPUSCULAR HGB CONC 33.1 g/dL (32.0-36.0); MEAN CORPUSCULAR VOLUME 91 fl (80-97); MONOCYTES % (AUTO) 11.4 % (3-13); PLATELET COUNT 148 10^3/uL (150-450); RED BLOOD COUNT 5.98 10^6/uL (4.35-5.55); RED CELL DISTRIBUTION WIDTH 15.6 % (11.5-14.0); SEGMENTED NEUTROPHILS % (AUTO) 69.8 % (42-78); TOTAL CELLS COUNTED % (AUTO) 100 %; WHITE BLOOD COUNT 6.2 10^3/uL (4.0-10.5)
[2018-11-09 16:52] LABS: ALBUMIN 3.7 g/dL (3.5-5.0); ALKALINE PHOSPHATASE 62 U/L (38-126); ANION GAP 5 (5-19); ASPARTATE AMINO TRANSFERASE 27 U/L (17-59); BILIRUBIN,DIRECT 0.2 mg/dL (0.0-0.4); BILIRUBIN,TOTAL 0.8 mg/dL (0.2-1.3); BLOOD UREA NITROGEN 20 mg/dL (7-20); CALCIUM 8.9 mg/dL (8.4-10.2); CARBON DIOXIDE 36 mmol/L (22-30); CHLORIDE 97 mmol/L (98-107); GLUCOSE 99 mg/dL (75-110); POTASSIUM 4.8 mmol/L (3.6-5.0); TOTAL PROTEIN 6.9 g/dL (6.3-8.2)
[2018-11-09 17:04] LABS: TROPONIN I 0.014 ng/mL
--- NOTE | 2018-11-09 18:11 | ER Document Report ---
ED General - General Chief Complaint: Breathing Difficulty Stated Complaint: WHEEZING Time Seen by Provider: 11/09/18 14:48 Primary Care Provider: KAUSHIK MARSHALL MD [Primary Care Provider] - Follow up as needed Mode of Arrival: Wheelchair Information source: Patient TRAVEL OUTSIDE OF THE [place] IN LAST 30 DAYS: No - HPI Notes: Patient presents with complaints of shortness of breath. Patient states that he has intermittent bouts of this. He states recently he has had an increase of a nonproductive cough. He has had some mild chest pain bilaterally. It is worse with coughing and better with rest. It does not radiate across his chest. It is intermittent. Patient states that he has had some mild shortness of breath. He has been taking his medicines as prescribed. He is currently on Lasix. Patient has had no fevers. He states he has been using his inhaler at home. - Related Data Allergies/Adverse Reactions: ciprofloxacin [From Cipro] Allergy (Verified 11/09/18 14:48) ciprofloxacin HCl [From Cipro] Allergy (Verified 11/09/18 14:48) Past Medical History - General Information source: Patient - Social History Smoking Status: Never Smoker Chew tobacco use (# tins/day): No Frequency of alcohol use: None Drug Abuse: None Family History: Reviewed & Not Pertinent Patient has suicidal ideation: No Patient has homicidal ideation: No - Past Medical History Cardiac Medical History: Reports: Hx Atrial Fibrillation, Hx DVT Denies: Hx Coronary Artery Disease, Hx Heart Attack, Hx Hypertension Pulmonary Medical History: Reports: Hx Respiratory Failure, Hx Sleep Apnea Denies: Hx Asthma, Hx Bronchitis, Hx COPD, Hx Pneumonia, Hx Tuberculosis Neurological Medical History: Denies: Hx Cerebrovascular Accident, Hx Seizures Renal/ Medical History: Denies: Hx Peritoneal Dialysis GI Medical History: Reports: Hx Hiatal Hernia, Hx Endoscopy Musculoskeletal Medical History: Reports Hx Arthritis - ANKLES/KNEES/SHOULDERS, Reports Hx Musculoskeletal Deformity, Reports Hx Musculoskeletal Trauma Skin Medical History: Reports Hx Cellulitis Psychiatric Medical History: Reports: Hx Anxiety, Hx Depression Past Surgical History: Reports: Hx Abdominal Surgery - hernia repair, Hx Hernio rrhaphy - Umbilical hernia repair, ventral hernia, Hx Testicular Surgery. Denies: Hx Pacemaker - Immunizations Hx Diphtheria, Pertussis, Tetanus Vaccination: Yes Hx Pneumococcal Vaccination: 11/09/15 Review of Systems - Review of Systems Constitutional: Malaise, Weakness. denies: Chills, Fever Cardiovascular: Chest pain. denies: Palpitations Respiratory: Cough, Short of breath -: Yes All other systems reviewed and negative Physical Exam - Vital signs Vitals: Temp Pulse BP Pulse Ox 98 F 68 88/69 L 94 11/09/18 14:44 11/09/18 14:44 11/09/18 14:44 11/09/18 14:44 Interpretation: Normal, Other - Blood pressure at triage was apparently low. However patient denies having any symptoms of low blood pressure such as lightheadedness dizziness. He is very alert without any altered mental status. For me he has normal 2+ radial pulses bilaterally. He also has a normal blood pressure of 139/85 that I personally performed. - General General appearance: Appears well, Alert - HEENT Head: Normocephalic, Atraumatic Eyes: Normal Pupils: PERRL - Respiratory Respiratory status: No respiratory distress Chest status: Nontender Breath sounds: Wheezing - diffuse Chest palpation: Normal - Cardiovascular Rhythm: Regular Heart sounds: Normal auscultation Murmur: No - Abdominal Inspection: Normal Distension: No distension Bowel sounds: Normal Tenderness: Nontender Organomegaly: No organomegaly - Back Back: Normal, Nontender - Extremities General upper extremity: Normal inspection, Nontender, Normal color, Normal ROM, Normal temperature General lower extremity: Normal inspection, Nontender, Normal color, Normal ROM, Normal temperature, Normal weight bearing. No: Calvin's sign - Neurological Neuro grossly intact: Yes Cognition: Normal Orientation: AAOx4 Ute Coma Scale Eye Opening: Spontaneous [place] Coma Scale Verbal: Oriented [place] Coma Scale Motor: Obeys Commands Ute Coma Scale Total: 15 Speech: Normal Motor strength normal: LUE, RUE, LLE, RLE Sensory: Normal - Psychological Associated symptoms: Normal affect, Normal mood - Skin Skin Temperature: Warm Skin Moisture: Dry Skin Color: Normal Course - Re-evaluation Re-evalutation: 11/09/18 18:13 Patient presents complaining of some shortness of breath cough and wheezing. He does have wheezing in all haji. He does however have a normal x-ray. No fever and no elevated white blood cell count. There is no evidence of pneumonia or failure. Patient feels better after breathing treatments. He is resting comfortably in his wheelchair. He has no labored respirations. He has normal vital signs. I think the most prudent course at this time is outpatient therapy and follow-up with his primary care doctor. I am not going to give the patient any Lasix as he looks slightly hemoconcentrated. He did drink 2 cups of water here. Patient has chronic A. fib and has a well-controlled rate here. I did not pursue DVT or PE because patient is on chronic anticoagulants. 11/09/18 18:15 - Vital Signs Vital signs: Temp Pulse Resp BP Pulse Ox 98 F 68 88/69 L 94 11/09/18 14:44 11/09/18 14:44 11/09/18 14:44 11/09/18 14:44 - Laboratory Result Diagrams: 11/09/18 16:14 11/09/18 16:14 Laboratory results interpreted by me: 11/09/18 11/09/18 11/09/18 16:14 16:14 16:14 RBC 5.98 H Hgb 18.1 H Hct 54.7 H RDW 15.6 H Plt Count 148 L Chloride 97 L Carbon Dioxide 36 H NT-Pro-B Natriuret Pep 2700 H - Diagnostic Test Radiology reviewed: Image reviewed, Reports reviewed - EKG Interpretation by Me Rate: Normal - 63 Rhythm: A.Fib [place]/QRS: Left axis deviation Discharge - Discharge Clinical Impression: Obesity, morbid, BMI 50 or higher URI (upper respiratory infection) Qualifiers: URI type: unspecified URI Qualified Code(s): J06.9 - Acute upper respiratory infection, unspecified Condition: Stable Disposition: HOME, SELF-CARE Instructions: Upper Respiratory Illness ([facility]) Additional Instructions: Please call your primary care doctor first thing in the morning to arrange follow-up Prescriptions: Cefdinir 300 mg PO BID 7 Days #14 capsule Prednisone 50 mg PO DAILY 5 Days #5 tablet Referrals: KAUSHIK MARSHALL MD [Primary Care Provider] - Follow up tomorrow
[2018-11-09 18:43] VITALS: BP 129/85
--- NOTE | 2018-11-09 19:56 | EKG REPORT ---
SEVERITY:- ABNORMAL ECG - ATRIAL FIBRILLATION, V-RATE 57-76 VENTRICULAR PREMATURE COMPLEX LEFT AXIS DEVIATION : Confirmed by: Nelly Sumner MD 09-Nov-2018 19:56:35
== END 2018-11-09 18:28 | disposition home or self-care (01) ==
LOC: ER 14:23
DX: J06.9 Acute upper respiratory infection, unspecified (principal); E66.01 Morbid (severe) obesity due to excess calories; R06.02 Shortness of breath; R05 Cough; R07.9 Chest pain, unspecified; R53.81 Other malaise; R53.1 Weakness; R06.2 Wheezing; I48.20 Chronic atrial fibrillation, unspecified; Z79.01 Long term (current) use of anticoagulants; Z79.899 Other long term (current) drug therapy; Z88.1 Allergy status to other antibiotic agents
CPT/HCPCS: 93005; 94640 ×2; 99285; 36415; 83605; 85025; 80053; 84484; 83880; 71046; 93010; A9270 ×2; J7512; J7620

== ENCOUNTER 2019-01-25 09:39 | Emergency (ER) | payer MEDICARE ==
--- NOTE | 2019-01-25 10:07 | ER Document Report ---
ED Medical Screen (RME) - General Chief Complaint: Breathing Difficulty Stated Complaint: TROUBLE BREATHING Time Seen by Provider: 01/25/19 10:02 Primary Care Provider: KAUSHIK MARSHALL MD [Primary Care Provider] - Follow up as needed Mode of Arrival: Wheelchair Information source: Patient Notes: 68-year-old male presented to ED for complaint of sharp pain just to the right of the center of the middle back and neck area just about in the area of his right kidney. He states he has been to hematology pain management and they have not been able to come up with why he is having of the pain in this area. He states the O2 sats have been down low since he was given morphine sometime ago he has been taken off some morphine and is now on Percocet for his pain management and sometimes his sats do go down below in the 80s. He said on a normal day he is about 92. I have greeted and performed a rapid initial assessment of this patient. A comprehensive ED assessment and evaluation of the patient, analysis of test results and completion of medical decision making process will be conducted by an additional ED providers. TRAVEL OUTSIDE OF THE [place] IN LAST 30 DAYS: No - Related Data Allergies/Adverse Reactions: ciprofloxacin [From Cipro] Allergy (Verified 11/09/18 14:48) ciprofloxacin HCl [From Cipro] Allergy (Verified 11/09/18 14:48) Past Medical History - General Information source: Patient - Social History Cigarette use (# per day): No Frequency of alcohol use: None Drug Abuse: Marijuana Family history: Reviewed & Not Pertinent - Past Medical History Cardiac Medical History: Reports: Hx Atrial Fibrillation, Hx DVT Pulmonary Medical History: Reports: Hx Respiratory Failure, Hx Sleep Apnea Neurological Medical History: Reports: None Endocrine Medical History: Reports: None Renal/ Medical History: Reports: None Malignancy Medical History: Reports None GI Medical History: Reports: Hx Hiatal Hernia, Hx Endoscopy Musculoskeltal Medical History: Reports Hx Arthritis - ANKLES/KNEES/SHOULDERS, Reports Hx Musculoskeletal Deformity, Reports Hx Musculoskeletal Trauma Skin Medical History: Reports Hx Cellulitis Psychiatric Medical History: Reports: Hx Anxiety, Hx Depression Traumatic Medical History: Reports: None Infectious Medical History: Reports: None Past Surgical History: Reports: Hx Abdominal Surgery - hernia repair, Hx Herniorrhaphy - Umbilical hernia repair, ventral hernia, Hx Testicular Surgery - Immunizations Hx Diphtheria, Pertussis, Tetanus Vaccination: Yes Physical Exam - Vital signs Vitals: Temp Pulse Resp BP Pulse Ox 99 F 74 32 H 152/99 H 84 L 01/25/19 09:44 01/25/19 09:44 01/25/19 09:44 01/25/19 09:44 01/25/19 09:44 Course - Vital Signs Vital signs: Temp Pulse Resp BP Pulse Ox 99 F 74 32 H 152/99 H 84 L 01/25/19 09:44 01/25/19 09:44 01/25/19 09:44 01/25/19 09:44 01/25/19 09:44 Doctor's Discharge - Discharge Referrals: KAUSHIK MARSHALL MD [Primary Care Provider] - Follow up as needed
[2019-01-25 11:07] LABS: ABSOLUTE BASOPHILS # (AUTO) 0.1 10^3/uL (0.0-0.2); ABSOLUTE EOSINOPHILS # (AUTO) 0.1 10^3/uL (0.0-0.6); ABSOLUTE LYMPHOCYTES (AUTO) 1.5 10^3/uL (0.5-4.7); ABSOLUTE MONOCYTES (AUTO) 0.7 10^3/uL (0.1-1.4); BASOPHILS % (AUTO) 0.8 % (0-2); EOSINOPHILS % (AUTO) 1.6 % (0-6); LYMPHOCYTES % (AUTO) 23.4 % (13-45); MEAN CORPUSCULAR HEMOGLOBIN 29.6 pg (27.0-33.4); MEAN CORPUSCULAR HGB CONC 32.6 g/dL (32.0-36.0); MEAN CORPUSCULAR VOLUME 91 fl (80-97); MONOCYTES % (AUTO) 11.3 % (3-13); PLATELET COUNT 185 10^3/uL (150-450); RED BLOOD COUNT 5.73 10^6/uL (4.35-5.55); RED CELL DISTRIBUTION WIDTH 15.1 % (11.5-14.0); SEGMENTED NEUTROPHILS % (AUTO) 62.9 % (42-78); TOTAL CELLS COUNTED % (AUTO) 100 %; WHITE BLOOD COUNT 6.3 10^3/uL (4.0-10.5)
[2019-01-25 11:23] LABS: ALBUMIN 3.9 g/dL (3.5-5.0); ALKALINE PHOSPHATASE 64 U/L (38-126); ANION GAP 6 (5-19); ASPARTATE AMINO TRANSFERASE 23 U/L (17-59); BILIRUBIN,DIRECT 0.2 mg/dL (0.0-0.4); BILIRUBIN,TOTAL 0.7 mg/dL (0.2-1.3); BLOOD UREA NITROGEN 23 mg/dL (7-20); CALCIUM 8.7 mg/dL (8.4-10.2); CARBON DIOXIDE 39 mmol/L (22-30); CHLORIDE 94 mmol/L (98-107); GLUCOSE 94 mg/dL (75-110); POTASSIUM 4.5 mmol/L (3.6-5.0); TOTAL PROTEIN 7.4 g/dL (6.3-8.2)
[2019-01-25 11:57] LABS: ARTERIAL BLOOD BASE EXCESS 7.8 mmol/L; ARTERIAL BLOOD H2CO3 2.02 mmol/L (1.05-1.35); ARTERIAL BLOOD HCO3 36.6 mmol/L (20-24); ARTERIAL BLOOD O2 SATURATION 80.5 % (94-98); ARTERIAL BLOOD PCO2 67.2 mmHg (35-45); ARTERIAL BLOOD PH 7.35 (7.35-7.45); ARTERIAL BLOOD PO2 47.9 mmHg (80-100); ARTERIAL BLOOD TOTAL CO2 38.7 mmol/L (23-27)
[2019-01-25 11:59] LABS: ARTERIAL BLOOD FIO2 3L
[2019-01-25 12:15] LABS: NT PRO BNP 1650 pg/mL (<125)
[2019-01-25 12:16] LABS: TROPONIN I < 0.012 ng/mL
--- NOTE | 2019-01-25 13:05 | RADIOLOGY REPORT (SQ) ---
EXAM DESCRIPTION: CHEST SINGLE VIEW COMPLETED DATE/TIME: 01/25/2019 12:42 pm REASON FOR STUDY: low o2 sat COMPARISON: Two-view chest 11/09/2018, 05/11/2018 AP chest 03/21/2018, 01/06/2018 EXAM PARAMETERS: NUMBER OF VIEWS: One view. TECHNIQUE: Single frontal radiographic view of the chest acquired. RADIATION DOSE: NA LIMITATIONS: AP portable chest, obese patient FINDINGS: LUNGS AND PLEURA: Low lung volumes. Minimal left basilar atelectasis. No fluffy alveolar infiltrates worrisome for pulmonary edema or pneumonia. No gross pleural effusion or pneumothorax. MEDIASTINUM AND HILAR STRUCTURES: No masses. Contour normal. HEART AND VASCULAR STRUCTURES: Stable mild cardiomegaly BONES: No acute findings. HARDWARE: None in the chest. OTHER: No other significant finding. IMPRESSION: Low lung volumes. Minimal left basilar atelectasis. TECHNICAL DOCUMENTATION: JOB ID: [id number] [employer]- All Rights Reserved Reading location - IP/workstation name: [email or web address]
--- NOTE | 2019-01-25 15:00 | ER Document Report ---
ED General - General Chief Complaint: Breathing Difficulty Stated Complaint: TROUBLE BREATHING Time Seen by Provider: 01/25/19 10:02 Primary Care Provider: KAUSHIK MARSHALL MD [Primary Care Provider] - Follow up as needed Mode of Arrival: Wheelchair TRAVEL OUTSIDE OF THE [place] IN LAST 30 DAYS: No - HPI Notes: Patient presents complaint of shortness of breath. Patient states that he has chronic shortness of breath but believes it is gotten worse now over the last several days. He states in the past he was prescribed oxygen. He states that he felt he no longer needed it so he returned the oxygen tank. He states he no longer has any oxygen at the house except for one tank that maybe has 1 days worth of oxygen in it. He states his cough is been worse and he does notice that he wheezes sometimes. He states he is not a smoker but he does smoke marij uana regularly. He denies any alcohol no vomiting or diarrhea. He states that he does check his oxygen levels at his home regularly and noticed today that they were in the 70s so he came to the hospital. His shortness of breath is constant. Is worse with exertion and better with rest. The intensity of it is moderate. There is no known radiation of his symptoms. - Related Data Allergies/Adverse Reactions: ciprofloxacin [From Cipro] Allergy (Verified 11/09/18 14:48) ciprofloxacin HCl [From Cipro] Allergy (Verified 11/09/18 14:48) Home Medications: percocet Past Medical History - General Information source: Patient - Social History Smoking Status: Never Smoker Cigarette use (# per day): No Chew tobacco use (# tins/day): No Frequency of alcohol use: None Drug Abuse: Marijuana Family History: Reviewed & Not Pertinent Patient has suicidal ideation: No Patient has homicidal ideation: No - Past Medical History Cardiac Medical History: Reports: Hx Atrial Fibrillation, Hx DVT Pulmonary Medical History: Reports: Hx Respiratory Failure, Hx Sleep Apnea Neurological Medical History: Reports: None Endocrine Medical History: Reports: None Renal/ Medical History: Reports: None Malignancy Medical History: Reports None GI Medical History: Reports: Hx Hiatal Hernia, Hx Endoscopy Musculoskeletal Medical History: Reports Hx Arthritis - ANKLES/KNEES/SHOULDERS, Reports Hx Musculoskeletal Deformity, Reports Hx Musculoskeletal Trauma Skin Medical History: Reports Hx Cellulitis Psychiatric Medical History: Reports: Hx Anxiety, Hx Depression Traumatic Medical History: Reports: None Infectious Medical History: Reports: None Past Surgical History: Reports: Hx Abdominal Surgery - hernia repair, Hx Her niorrhaphy - Umbilical hernia repair, ventral hernia, Hx Testicular Surgery - Immunizations Hx Diphtheria, Pertussis, Tetanus Vaccination: Yes Hx Pneumococcal Vaccination: 11/09/15 Review of Systems - Review of Systems Constitutional: Malaise, Weakness. denies: Chills, Fever Cardiovascular: denies: Chest pain, Palpitations Respiratory: Cough, Short of breath Gastrointestinal: denies: Abdominal pain, Diarrhea -: Yes All other systems reviewed and negative Physical Exam - Vital signs Vitals: Temp Pulse Resp BP Pulse Ox 99 F 74 32 H 152/99 H 84 L 01/25/19 09:44 01/25/19 09:44 01/25/19 09:44 01/25/19 09:44 01/25/19 09:44 Interpretation: Hypoxic, Tachypneic - General General appearance: Alert In distress: Mild - HEENT Head: Normocephalic, Atraumatic Eyes: Normal Pupils: PERRL - Respiratory Respiratory status: No respiratory distress Chest status: Nontender Breath sounds: Decreased air movement, Wheezing Chest palpation: Normal - Cardiovascular Rhythm: Regular Heart sounds: Normal auscultation Murmur: No - Abdominal Inspection: Normal Distension: No distension Bowel sounds: Normal Tenderness: Nontender Organomegaly: No organomegaly - Back Back: Normal, Nontender - Extremities General upper extremity: Normal inspection, Nontender, Normal color, Normal ROM, Normal temperature General lower extremity: Nontender, Edema - 2+ bilateral pitting edema, Normal temperature. No: Calvin's sign - Neurological Neuro grossly intact: Yes Cognition: Normal Orientation: AAOx4 Ute Coma Scale Eye Opening: Spontaneous [place] Coma Scale Verbal: Oriented Ute Coma Scale Motor: Obeys Commands Ute Coma Scale Total: 15 Speech: Normal Motor strength normal: LUE, RUE, LLE, RLE Sensory: Normal - Psychological Associated symptoms: Normal affect, Normal mood - Skin Skin Temperature: Warm Skin Moisture: Dry Skin Color: Normal Course - Re-evaluation Re-evalutation: 01/25/19 15:45 Patient complains of shortness of breath. It appears to be multifactorial. Patient states he has never been diagnosed with COPD however he smokes marijuana daily. He does have some wheezing and he does have nebulizers at home. He is also previously been prescribed home oxygen but he states that he turned this in and no longer has it. In addition patient is on Lasix at home and does appear to have a component of CHF as he has peripheral edema, recent weight gain, and a mildly elevated BNP. I have advised the patient that he needs to be admitted. However patient adamantly refuses to be admitted. Patient will leave AGAINST MEDICAL ADVICE. Patient is aware that he could suffer serious consequences such as permanent disability or even . Patient has been arranged to have an appointment with his primary care doctor at 3:00 on Wednesday, which is in 2 days. I have tried to arrange for home oxygen to be delivered to the patient today as has the family physician but we have been unable to do so. Patient knows that he will not get oxygen today but he still refuses to stay in the hospital. I will also give the patient steroids and antibiotics. Patient has inhalers at home already. I am also going to recommend to the patient that he increases his Lasix to 2 pills a day from 1 pill a day. - Vital Signs Vital signs: Temp Pulse Resp BP Pulse Ox 99 F 74 22 H 152/99 H 100 01/25/19 09:55 01/25/19 09:55 01/25/19 14:00 01/25/19 09:55 01/25/19 14:00 - Laboratory Result Diagrams: 01/25/19 10:45 01/25/19 10:45 Laboratory results interpreted by me: 01/25/19 01/25/19 01/25/19 10:45 10:45 10:45 RBC 5.73 H Hct 52.0 H RDW 15.1 H Carbonic Acid ABG pCO2 ABG pO2 ABG HCO3 ABG Total CO2 ABG O2 Saturation Chloride 94 L Carbon Dioxide 39 H BUN 23 H NT-Pro-B Natriuret Pep 1650 H 01/25/19 11:40 RBC Hct RDW Carbonic Acid 2.02 H ABG pCO2 67.2 H ABG pO2 47.9 L ABG HCO3 36.6 H ABG Total CO2 38.7 H ABG O2 Saturation 80.5 L Chloride Carbon Dioxide BUN NT-Pro-B Natriuret Pep - Diagnostic Test Radiology reviewed: Image reviewed, Reports reviewed - EKG Interpretation by Me EKG shows normal: Sinus rhythm Rate: Normal - 71 Rhythm: A.Fib [place]/QRS: Left axis deviation. No: Right axis deviation Discharge - Discharge Clinical Impression: Hypoxia, Acute respiratory failure with hypoxia, Obesity, morbid, BMI 50 or higher, Lymphedema Respiratory failure Qualifiers: Chronicity: acute Respiratory failure complication: hypoxia Qualified Code(s): J96.01 - Acute respiratory failure with hypoxia CHF (congestive heart failure) Qualifiers: Heart failure type: unspecified Heart failure chronicity: acute on chronic Qualified Code(s): I50.9 - Heart failure, unspecified Afib Qualifiers: Atrial fibrillation type: longstanding persistent Qualified Code(s): I48.11 - Longstanding persistent atrial fibrillation Chronic pain Qualifiers: Chronic pain type: chronic pain syndrome Qualified Code(s): G89.4 - Chronic pain syndrome Condition: Critical Disposition: AGAINST MEDICAL ADVICE Instructions: Congestive Heart Failure ([facility]), Dyspnea, Nonspecific ([facility]) Additional Instructions: Please go to Dr. Marshall's office this Wednesday at 3:00. You are welcome to return at any time. If you have worsening problems with feeling short of breath please return to the emergency department immediately. Please take 80 mg of lasix per day until you see Dr. Marshall on Wednesday. If you prefer a second opinion please call Dr. Morales Prescriptions: Cefdinir 300 mg PO BID 7 Days #14 capsule Prednisone [Deltasone 20 mg Tablet] 3 tab PO DAILY 5 Days tablet Referrals: KAUSHIK MARSHALL MD [Primary Care Provider] - Follow up in 3-5 days NAVID MORRISON MD [ACTIVE STAFF] - Follow up as needed
[2019-01-25] MEDS ORDERED: PREDNISONE 20 MG TABLET PO ONE (15:52)
[2019-01-25] MEDS ORDERED: FUROSEMIDE 40 MG TABLET PO ONE (15:52)
[2019-01-25 16:14] VITALS: BP 130/55
--- NOTE | 2019-01-25 21:45 | EKG REPORT ---
SEVERITY:- ABNORMAL ECG - PACEMAKER SPIKES OR ARTIFACTS PROBABLE ATRIAL FIBRILLATION MULTIFORM VENTRICULAR PREMATURE COMPLEXES VS ARTIFACTS NONSPECIFIC INTRAVENTRICULAR CONDUCTION DELAY ABNRM R PROG, CONSIDER ASMI OR LEAD PLACEMENT REC REPEAT EKG : Confirmed by: Yee Bell 25-Jan-2019 21:45:05
== END 2019-01-25 16:15 | disposition left against medical advice (07) ==
LOC: ER 09:39
DX: J96.01 Acute respiratory failure with hypoxia (principal); I50.9 Heart failure, unspecified; I48.11 Longstanding persistent atrial fibrillation; I89.0 Lymphedema, not elsewhere classified; E66.01 Morbid (severe) obesity due to excess calories; G89.4 Chronic pain syndrome; Z79.891 Long term (current) use of opiate analgesic; R05 Cough; R53.81 Other malaise; R53.1 Weakness; F12.10 Cannabis abuse, uncomplicated; Z86.718 Personal history of other venous thrombosis and embolism; Z88.1 Allergy status to other antibiotic agents; Z79.899 Other long term (current) drug therapy; Z53.20 Procedure and treatment not carried out because of patient's decision for unspecified reasons
CPT/HCPCS: 93005; 99285; 36415; 82803; 85025; 80053; 84484; 83880; 71045; 93010; A9270 ×2; J7512

== ENCOUNTER → 2019-01-27 | Outpatient (CLI) | payer MEDICARE ==
[2019-01-27 12:03] LABS: BLOOD UREA NITROGEN 29 mg/dL (7-20); CALCIUM 9.2 mg/dL (8.4-10.2); CHLORIDE 97 mmol/L (98-107); GLUCOSE 93 mg/dL (75-110); POTASSIUM 4.8 mmol/L (3.6-5.0)
[2019-01-27 12:10] LABS: ANION GAP 6 (5-19); CARBON DIOXIDE 39 mmol/L (22-30)
--- NOTE | 2019-01-27 17:23 | EKG REPORT ---
SEVERITY:- ABNORMAL ECG - ATRIAL FIBRILLATION, V-RATE 55-82 BORDERLINE LEFT AXIS DEVIATION : Confirmed by: Yee Bell 27-Jan-2019 17:22:46
== END ==
LOC: OD 10:34
PROVIDERS: ATTEND Family Medicine
DX: I50.21 Acute systolic (congestive) heart failure (principal)
CPT/HCPCS: 36415; 80048; 82552; 84484; 93005; 93010

== ENCOUNTER 2019-02-07 17:22 | Emergency (ER) | payer MEDICARE ==
--- NOTE | 2019-02-07 18:04 | ER Document Report ---
ED Medical Screen (RME) - General Stated Complaint: POSSIBLE LOW OXYGEN Time Seen by Provider: 02/07/19 17:58 Primary Care Provider: KAUSHIK MARSHALL MD [Primary Care Provider] - Follow up as needed TRAVEL OUTSIDE OF THE [place] IN LAST 30 DAYS: No - HPI Notes: 02/07/19 18:03 Patient is a 68-year-old male with a history of morbid obesity and respiratory failure, chronic, most likely secondary to body habitus presents complaining of having lower oxygen readings on his pulse ox today. He was told the last time that he was here that he should have oxygen for home, but when he went to his doctor's office he did not qualify at that time. He does have episodes of shortness of breath. He has not had any chest pain. No fever. Patient states that he has gained 60 pounds over the past several months. I have treated and performed a rapid initial assessment of this patient. A comprehensive ED assessment and evaluation of the patient, analysis of test results and completion of medical decision making process will be conducted by additional ED providers. PHYSICAL EXAMINATION: GENERAL: Well-appearing, well-nourished and in no acute distress. A&Ox4. Answers questions appropriately. Significantly morbidly obese Lungs: Diminished at the base bilaterally, otherwise clear. No retractions. Extremities: Lymphedema noted. - Related Data Allergies/Adverse Reactions: ciprofloxacin [From Cipro] Allergy (Verified 11/09/18 14:48) ciprofloxacin HCl [From Cipro] Allergy (Verified 11/09/18 14:48) Past Medical History - Social History Family history: Reviewed & Not Pertinent - Past Medical History Cardiac Medical History: Reports: Hx Atrial Fibrillation, Hx DVT Pulmonary Medical History: Reports: Hx Respiratory Failure, Hx Sleep Apnea GI Medical History: Reports: Hx Hiatal Hernia, Hx Endoscopy Musculoskeltal Medical History: Reports Hx Arthritis - ANKLES/KNEES/SHOULDERS, Reports Hx Musculoskeletal Deformity, Reports Hx Musculoskeletal Trauma Skin Medical History: Reports Hx Cellulitis Psychiatric Medical History: Reports: Hx Anxiety, Hx Depression Past Surgical History: Reports: Hx Abdominal Surgery - hernia repair, Hx Herniorrhaphy - Umbilical hernia repair, ventral hernia, Hx Testicular Surgery - Immunizations Hx Diphtheria, Pertussis, Tetanus Vaccination: Yes Physical Exam - Vital signs Vitals: Temp Pulse Resp BP Pulse Ox 97.4 F 42 L 12 111/69 91 L 02/07/19 17:34 02/07/19 17:34 02/07/19 17:34 02/07/19 17:34 02/07/19 17:34 Course - Vital Signs Vital signs: Temp Pulse Resp BP Pulse Ox 97.4 F 42 L 12 111/69 91 L 02/07/19 17:34 02/07/19 17:34 02/07/19 17:34 02/07/19 17:34 02/07/19 17:34 Doctor's Discharge - Discharge Referrals: KAUSHIK MARSHALL MD [Primary Care Provider] - Follow up as needed
[2019-02-07] MEDS ORDERED: IPRATROPIUM/ALBUTEROL 0.5-2.5 MG/3 ML AMPUL NEB ONE (18:05)
--- NOTE | 2019-02-07 18:33 | RADIOLOGY REPORT (SQ) ---
EXAM DESCRIPTION: CHEST SINGLE VIEW COMPLETED DATE/TIME: 02/07/2019 6:24 pm REASON FOR STUDY: intermittent sob COMPARISON: 01/25/2019 TECHNIQUE: Single frontal radiographic view of the chest acquired. NUMBER OF VIEWS: One view. LIMITATIONS: None. FINDINGS: LUNGS AND PLEURA: No pneumothorax. Similar interstitial changes. No consolidation or sig nificant pleural effusion. MEDIASTINUM AND HILAR STRUCTURES: Stable. HEART AND VASCULAR STRUCTURES: Stable. BONES: No acute findings. HARDWARE: None in the chest. OTHER: No other significant finding. IMPRESSION: NO ACUTE FINDINGS. TECHNICAL DOCUMENTATION: JOB ID: [id number] [place]-72 2010 [employer]- All Rights Reserved Reading location - IP/workstation name: [email or web address]
[2019-02-07 19:44] LABS: ABSOLUTE BASOPHILS # (AUTO) 0.1 10^3/uL (0.0-0.2); ABSOLUTE EOSINOPHILS # (AUTO) 0.1 10^3/uL (0.0-0.6); ABSOLUTE LYMPHOCYTES (AUTO) 1.5 10^3/uL (0.5-4.7); ABSOLUTE MONOCYTES (AUTO) 0.6 10^3/uL (0.1-1.4); ABSOLUTE NEUT (AUTO) 5.5 10^3/uL (1.7-8.2); BASOPHILS % (AUTO) 0.8 % (0-2); EOSINOPHILS % (AUTO) 1.7 % (0-6); HEMATOCRIT 51.5 % (37.9-51.0); HEMOGLOBIN 16.8 g/dL (13.5-17.0); LYMPHOCYTES % (AUTO) 18.6 % (13-45); MEAN CORPUSCULAR HEMOGLOBIN 29.5 pg (27.0-33.4); MEAN CORPUSCULAR HGB CONC 32.6 g/dL (32.0-36.0); MEAN CORPUSCULAR VOLUME 90 fl (80-97); MONOCYTES % (AUTO) 8.2 % (3-13); PLATELET COUNT 174 10^3/uL (150-450); RED CELL DISTRIBUTION WIDTH 15.6 % (11.5-14.0); SEGMENTED NEUTROPHILS % (AUTO) 70.7 % (42-78); TOTAL CELLS COUNTED % (AUTO) 100 %; WHITE BLOOD COUNT 7.8 10^3/uL (4.0-10.5)
[2019-02-07 19:56] LABS: ALBUMIN 3.8 g/dL (3.5-5.0); ALKALINE PHOSPHATASE 61 U/L (38-126); ANION GAP 5 (5-19); ASPARTATE AMINO TRANSFERASE 20 U/L (17-59); BILIRUBIN,DIRECT 0.3 mg/dL (0.0-0.4); BILIRUBIN,TOTAL 0.5 mg/dL (0.2-1.3); BLOOD UREA NITROGEN 30 mg/dL (7-20); CALCIUM 8.8 mg/dL (8.4-10.2); CARBON DIOXIDE 33 mmol/L (22-30); CHLORIDE 103 mmol/L (98-107); GLUCOSE 98 mg/dL (75-110); POTASSIUM 4.9 mmol/L (3.6-5.0); TOTAL PROTEIN 7.2 g/dL (6.3-8.2)
[2019-02-07 20:07] LABS: NT PRO BNP 1370 pg/mL (<125)
[2019-02-07 20:08] LABS: TROPONIN I < 0.012 ng/mL
--- NOTE | 2019-02-07 20:40 | ER Document Report ---
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 He states last time he was here to the doctor he thought he should have been on oxygen but the doctor told him that he did not qualify. He states he has had multiple episodes of shortness of breath and dizziness. He does not have chest pain. No fever. He states he has gained 60 pounds over the last couple months. He states his last weight 2 weeks ago was 520 pounds. TRAVEL OUTSIDE OF THE [place] IN LAST 30 DAYS: No - HPI Patient complains to provider of: Cough, Short of breath Onset: Other - Couple worked Duration: Worse/persistent - Couple weeks Initiating Event: Other - Short of breath dizzy Quality of pain: Sharp - Neck back and body pain and 15 mg of Percocet times a day Severity: Moderate Pain Level: 3 Context: Hx CHF, Other - Severe morbid obesity at 520 pounds Associated symptoms: Short of breath, Other - Patient has been having low blood pressure dizziness low pulses and low O2 sats Similar symptoms previously: Yes Recently seen / treated by doctor: Yes - Related Data Allergies/Adverse Reactions: ciprofloxacin [From Cipro] Allergy (Verified 11/09/18 14:48) ciprofloxacin HCl [From Cipro] Allergy (Verified 11/09/18 14:48) Past Medical History - General Information source: Patient - Social History Smoking Status: Never Smoker Chew tobacco use (# tins/day): No Frequency of alcohol use: None Drug Abuse: Marijuana Family History: Reviewed & Not Pertinent Patient has suicidal ideation: No Patient has homicidal ideation: No - Medical History Medical History: Other - Severely morbidly obese - Past Medical History Cardiac Medical History: Reports: Hx Atrial Fibrillation, Hx Congestive Heart Failure, Hx DVT Pulmonary Medical History: Reports: Hx Respiratory Failure, Hx Sleep Apnea EENT Medical History: Reports: None Neurological Medical History: Reports: None Endocrine Medical History: Reports: None Renal/ Medical History: Reports: None Malignancy Medical History: Reports None GI Medical History: Reports: Hx Hiatal Hernia, Hx Endoscopy Musculoskeletal Medical History: Reports Hx Arthritis - ANKLES/KNEES/SHOULDERS, Reports Hx Musculoskeletal Deformity, Reports Hx Musculoskeletal Trauma Skin Medical History: Reports Hx Cellulitis Psychiatric Medical History: Reports: Hx Anxiety, Hx Depression Traumatic Medical History: Reports: None Infectious Medical History: Reports: None Past Surgical History: Reports: Hx Abdominal Surgery - Hernia, Hx Herniorrhaphy - Umbilical hernia repair, ventral hernia, Hx Testicular Surgery, Hx Umbilical Hernia, Other - Immunizations Hx Diphtheria, Pertussis, Tetanus Vaccination: Yes Hx Pneumococcal Vaccination: 11/09/15 Review of Systems - Review of Systems Constitutional: No symptoms reported EENT: No symptoms reported Cardiovascular: Edema - Gross lower extremity edema Respiratory: Short of breath Gastrointestinal: No symptoms reported Genitourinary: No symptoms reported Male Genitourinary: No symptoms reported Musculoskeletal: Back pain Skin: No symptoms reported Hematologic/Lymphatic: No symptoms reported Neurological/Psychological: No symptoms reported -: Yes All other systems reviewed and negative Physical Exam - Vital signs Vitals: Temp Pulse Resp BP Pulse Ox 97.4 F 42 L 12 111/69 91 L 02/07/19 17:34 02/07/19 17:34 02/07/19 17:34 02/07/19 17:34 02/07/19 17:34 Interpretation: Normal - Notes Notes: Morbid obesity of 520 pounds - General General appearance: Appears well, Alert - HEENT Head: Normocephalic, Atraumatic Eyes: Normal Pupils: PERRL - Respiratory Respiratory status: Tachypnea Chest status: Accessory muscle use Breath sounds: Decreased air movement. No: Rales, Rhonchi, Stridor, Wheezing Chest palpation: Normal Notes: Morbidly obese very short of breath with any movement. When O2 was removed for 5 minutes his sats dropped down to the low 80s 81 he does come back up to 88 wit h no oxygen on does not cross 90. - Cardiovascular Rhythm: Regular Heart sounds: Normal auscultation Murmur: No - Abdominal Inspection: Normal Distension: No distension Bowel sounds: Normal Tenderness: Nontender Organomegaly: No organomegaly - Back Back: Normal, Nontender - Extremities General upper extremity: Normal inspection, Nontender, Normal color, Normal ROM, Normal temperature General lower extremity: Normal inspection, Nontender, Normal color, Normal ROM, Normal temperature, Normal weight bearing. No: Calvin's sign Calf: Tender, Other - gross edema Ankle: Edema - gross edema Foot: Edema - gross edema - Neurological Neuro grossly intact: Yes Cognition: Normal Orientation: AAOx4 Ute Coma Scale Eye Opening: Spontaneous Ute Coma Scale Verbal: Oriented Ute Coma Scale Motor: Obeys Commands [place] Coma Scale Total: 15 Speech: Normal Motor strength normal: LUE, RUE, LLE, RLE Sensory: Normal - Psychological Associated symptoms: Normal affect, Normal mood - Skin Skin Temperature: Warm Skin Moisture: Dry Skin Color: Normal Course - Re-evaluation Re-evalutation: 02/08/19 08:53 Patient left AGAINST MEDICAL ADVICE even after being instructed that his O2 sats are too low when he is not on oxygen. His O2 sats did drop down to low 80s multiple times when he was being assessed without oxygen. ABG was discussed with patient. Patient was given a written report of all of his labs before he was discharged. Patient was instructed if he becomes very short of breath please to call 911 and come right back to the emergency room. - Vital Signs Vital signs: Temp Pulse Resp BP Pulse Ox 97.9 F 42 L 17 116/65 90 L 02/07/19 23:01 02/07/19 17:34 02/07/19 23:01 02/07/19 23:01 02/07/19 23:01 - Laboratory Result Diagrams: 02/07/19 19:24 02/07/19 19:24 Laboratory results interpreted by me: 02/07/19 02/07/19 02/07/19 19:24 19:24 19:24 RBC 5.70 H Hct 51.5 H RDW 15.6 H Carbonic Acid ABG pH ABG pCO2 ABG pO2 ABG HCO3 ABG O2 Saturation Carbon Dioxide 33 H BUN 30 H Est GFR (MDRD) Non-Af 58 L NT-Pro-B Natriuret Pep 1370 H 02/07/19 22:37 RBC Hct RDW Carbonic Acid 1.54 H ABG pH 7.30 L ABG pCO2 51.2 H ABG pO2 56.2 L ABG HCO3 24.9 H ABG O2 Saturation 86.1 L Carbon Dioxide BUN Est GFR (MDRD) Non-Af NT-Pro-B Natriuret Pep - Diagnostic Test Radiology reviewed: Image reviewed, Reports reviewed Discharge - Discharge Clinical Impression: Shortness of breath, Hypoxia, Obesity, morbid, BMI 50 or higher Chronic pain Qualifiers: Chronic pain type: chronic pain syndrome Qualified Code(s): G89.4 - Chronic pain syndrome Disposition: AGAINST MEDICAL ADVICE Additional Instructions: You are being discharged AGAINST MEDICAL ADVICE as you were very short of breath your O2 sats are in the 80s when you are not on oxygen and you do not have oxygen at home. I cannot arrange oxygen today to send you home. I have requested several times for you to be admitted tonight so the discharge planning can set you up with oxygen at home. I have explained to you that if you go home AGAINST MEDICAL ADVICE with no oxygen you could go to sleep and not wake. We have discussed this at length and you state you would rather go home than to be in the hospital in the hospital bed as it makes you so uncomfortable. You state that you have had low oxygen for a while and you think you can like it to you can see your doctor on . If you decide to come back to the hospital due to shortness of breath and difficulty breathing please call [address] try to drive yourself back. We are more than happy to take care of you it is your choice that you are going home. FOLLOW-UP CARE: If you have been referred to a physician for follow-up care, call the physicians office for an appointment as you were instructed or within the next two days. If you experience worsening or a significant change in your symptoms, notify the physician immediately or return to the Emergency Department at any time for re-evaluation. Referrals: KAUSHIK MARSHALL MD [Primary Care Provider] - 02/09/19
--- NOTE | 2019-02-07 21:18 | EKG REPORT ---
SEVERITY:- ABNORMAL ECG - ATRIAL FIB VENTRICULAR PREMATURE COMPLEX ABNRM R PROG, CONSIDER ASMI OR LEAD PLACEMENT BORDERLINE PROLONGED QT INTERVAL : Confirmed by: Vasquez Smith MD 07-Feb-2019 21:18:43
[2019-02-07 22:48] LABS: ARTERIAL BLOOD BASE EXCESS -2.4 mmol/L; ARTERIAL BLOOD H2CO3 1.54 mmol/L (1.05-1.35); ARTERIAL BLOOD HCO3 24.9 mmol/L (20-24); ARTERIAL BLOOD O2 SATURATION 86.1 % (94-98); ARTERIAL BLOOD PCO2 51.2 mmHg (35-45); ARTERIAL BLOOD PO2 56.2 mmHg (80-100); ARTERIAL BLOOD TOTAL CO2 26.4 mmol/L (23-27)
[2019-02-07 22:57] LABS: ARTERIAL BLOOD FIO2 ROOM AIR
--- NOTE | 2019-02-07 23:03 | ER Document Report ---
ED General - General Chief Complaint: Shortness Of Breath Stated Complaint: POSSIBLE LOW OXYGEN Time Seen by Provider: 02/07/19 17:58 Primary Care Provider: KAUSHIK MARSHALL MD [Primary Care Provider] - Follow up as needed Mode of Arrival: Wheelchair TRAVEL OUTSIDE OF THE [place] IN LAST 30 DAYS: No - Related Data Allergies/Adverse Reactions: ciprofloxacin [From Cipro] Allergy (Verified 11/09/18 14:48) ciprofloxacin HCl [From Cipro] Allergy (Verified 11/09/18 14:48) Past Medical History - General Information source: Patient - Social History Smoking Status: Never Smoker Chew tobacco use (# tins/day): No Frequency of alcohol use: None Drug Abuse: Marijuana Family History: Reviewed & Not Pertinent Patient has suicidal ideation: No Patient has homicidal ideation: No - Medical History Medical History: Other - Severely morbidly obese - Past Medical History Cardiac Medical History: Reports: Hx Atrial Fibrillation, Hx Congestive Heart Failure, Hx DVT Pulmonary Medical History: Reports: Hx Respiratory Failure, Hx Sleep Apnea EENT Medical History: Reports: None Neurological Medical History: Reports: None Endocrine Medical History: Reports: None Renal/ Medical History: Reports: None Malignancy Medical History: Reports None GI Medical History: Reports: Hx Hiatal Hernia, Hx Endoscopy Musculoskeletal Medical History: Reports Hx Arthritis - ANKLES/KNEES/SHOULDERS, Reports Hx Musculoskeletal Deformity, Reports Hx Musculoskeletal Trauma Skin Medical History: Reports Hx Cellulitis Psychiatric Medical History: Reports: Hx Anxiety, Hx Depression Traumatic Medical History: Reports: None Infectious Medical History: Reports: None Past Surgical History: Reports: Hx Abdominal Surgery - Hernia, Hx Herniorrhaphy - Umbilical hernia repair, ventral hernia, Hx Testicular Surgery, Hx Umbilical H ernia, Other - Immunizations Hx Diphtheria, Pertussis, Tetanus Vaccination: Yes Hx Pneumococcal Vaccination: 11/09/15 Physical Exam - Vital signs Vitals: Temp Pulse Resp BP Pulse Ox 97.4 F 42 L 12 111/69 91 L 02/07/19 17:34 02/07/19 17:34 02/07/19 17:34 02/07/19 17:34 02/07/19 17:34 Course - Re-evaluation Re-evalutation: 02/07/19 23:00 Is evaluated patient by midlevel provider. Patient presents emerge department complaint of shortness of breath and lower extremity edema. Recently seen by his family doctor who told him that he was not eligible for home O2 because his sats were above 90. However patient reports that his sats have been below 90 below 90 at home Exam vital signs noted he looks very comfortable. He is morbidly obese this is clear heart is regular rate and rhythm +4 edema lower extremities. Addendum the patient will need admission to the hospital because of shortness of breath however he is refusing admission to the hospital. Advised him that he probably needs to be on home O2 but we can set that up he understands that. I told him at the wrist about going home. I did talk to him about the possibility of obtaining a blood gas to document is really hypoxic and he was amenable to that. He was taken off the O2 25 minutes. On back to evaluate the patient exactly resting very comfortably his heart rate was the same [place] rate of my exam was 20 sats are running 88% is remained clear Abdomen suspect patient probably has some underlying chronic hypoxia - Vital Signs Vital signs: Temp Pulse Resp BP Pulse Ox 97.4 F 42 L 23 H 132/84 H 93 02/07/19 17:34 02/07/19 17:34 02/07/19 21:03 02/07/19 21:03 02/07/19 21:03 - Laboratory Result Diagrams: 02/07/19 19:24 02/07/19 19:24 Laboratory results interpreted by me: 02/07/19 02/07/19 02/07/19 19:24 19:24 19:24 RBC 5.70 H Hct 51.5 H RDW 15.6 H Carbonic Acid ABG pH ABG pCO2 ABG pO2 ABG HCO3 ABG O2 Saturation Carbon Dioxide 33 H BUN 30 H Est GFR (MDRD) Non-Af 58 L NT-Pro-B Natriuret Pep 1370 H 02/07/19 22:37 RBC Hct RDW Carbonic Acid 1.54 H ABG pH 7.30 L ABG pCO2 51.2 H ABG pO2 56.2 L ABG HCO3 24.9 H ABG O2 Saturation 86.1 L Carbon Dioxide BUN Est GFR (MDRD) Non-Af NT-Pro-B Natriuret Pep Discharge - Discharge Clinical Impression: Shortness of breath Disposition: AGAINST MEDICAL ADVICE Referrals: KAUSHIK MARSHALL MD [Primary Care Provider] - Follow up as needed
[2019-02-07 23:11] VITALS: BP 116/65
== END 2019-02-07 23:53 | disposition left against medical advice (07) ==
LOC: ER 17:22
DX: R06.02 Shortness of breath (principal); E66.01 Morbid (severe) obesity due to excess calories; I50.9 Heart failure, unspecified
CPT/HCPCS: 36415; 71045; 80053; 82803; 83880; 84484; 85025; 93005; 93010; 99285

== ENCOUNTER → 2019-02-23 | Outpatient (CLI) | payer MEDICARE ==
[2019-02-23 14:18] LABS: ABSOLUTE EOSINOPHILS # (AUTO) 0.1 10^3/uL (0.0-0.6); ABSOLUTE LYMPHOCYTES (AUTO) 0.9 10^3/uL (0.5-4.7); ABSOLUTE MONOCYTES (AUTO) 0.4 10^3/uL (0.1-1.4); ABSOLUTE NEUT (AUTO) 3.8 10^3/uL (1.7-8.2); BASOPHILS % (AUTO) 0.6 % (0-2); EOSINOPHILS % (AUTO) 2.5 % (0-6); HEMATOCRIT 51.4 % (37.9-51.0); HEMOGLOBIN 16.5 g/dL (13.5-17.0); LYMPHOCYTES % (AUTO) 16.7 % (13-45); MEAN CORPUSCULAR HEMOGLOBIN 29.1 pg (27.0-33.4); MEAN CORPUSCULAR HGB CONC 32.1 g/dL (32.0-36.0); MEAN CORPUSCULAR VOLUME 91 fl (80-97); PLATELET COUNT 161 10^3/uL (150-450); RED BLOOD COUNT 5.67 10^6/uL (4.35-5.55); SEGMENTED NEUTROPHILS % (AUTO) 72.2 % (42-78); TOTAL CELLS COUNTED % (AUTO) 100 %; WHITE BLOOD COUNT 5.3 10^3/uL (4.0-10.5)
[2019-02-23 14:48] LABS: ALBUMIN 3.9 g/dL (3.5-5.0); ALKALINE PHOSPHATASE 65 U/L (38-126); ANION GAP 6 (5-19); ASPARTATE AMINO TRANSFERASE 24 U/L (17-59); BILIRUBIN,DIRECT 0.3 mg/dL (0.0-0.4); BILIRUBIN,TOTAL 0.7 mg/dL (0.2-1.3); BLOOD UREA NITROGEN 22 mg/dL (7-20); CALCIUM 9.3 mg/dL (8.4-10.2); CARBON DIOXIDE 39 mmol/L (22-30); CHLORIDE 97 mmol/L (98-107); CHOLESTEROL 155.98 mg/dL (0-200); GLUCOSE 95 mg/dL (75-110); POTASSIUM 4.8 mmol/L (3.6-5.0); TOTAL PROTEIN 7.2 g/dL (6.3-8.2); TRIGLYCERIDES 86 mg/dL (<150)
[2019-02-23 15:00] LABS: DIRECT LDL 110 mg/dL (<100)
[2019-02-23 15:01] LABS: FREE T3 3.38 pg/mL (2.77-5.27); FREE T4 (FREE THYROXINE) 0.92 ng/dL (0.78-2.19)
[2019-02-23 15:14] LABS: THYROID STIMULATING HORMONE 3.16 uIU/mL (0.47-4.68)
[2019-02-27 14:36] LABS: A/G RATIO. 1.2 (0.7-1.7); ALBUMIN 3 3.4 g/dL (2.9-4.4); ALPHA-1-GLOBULIN 0.3 g/dL (0.0-0.4); BETA GLOBULIN 1.2 g/dL (0.7-1.3); GAMMA GLOBULINS 1.1 g/dL (0.4-1.8); IMMUNOGLOBULIN A 303 mg/dL (61-437); IMMUNOGLOBULIN G 1235 mg/dL (700-1600); IMMUNOGLOBULIN M 64 mg/dL (20-172); MONOCLONAL-SPIKE Not Observed g/dL (Not Observ); PROTEIN TOTAL SERUM 6.4 g/dL (6.0-8.5)
== END ==
LOC: OD 12:56
PROVIDERS: ATTEND Family Medicine
DX: E78.5 Hyperlipidemia, unspecified (principal); E03.9 Hypothyroidism, unspecified; D45 Polycythemia vera; E53.9 Vitamin B deficiency, unspecified; M54.9 Dorsalgia, unspecified
CPT/HCPCS: 36415; 80053; 80061; 82607; 84156; 84166; 84439; 84443; 84481; 85025; 86320; 86335

== ENCOUNTER 2019-02-26 17:29 | Emergency (ER) | payer MEDICARE ==
[2019-02-26] MEDS ORDERED: IPRATROPIUM/ALBUTEROL 0.5-2.5 MG/3 ML AMPUL NEB ONE (17:57)
--- NOTE | 2019-02-26 18:00 | ER Document Report ---
ED Medical Screen (RME) - General Chief Complaint: Shortness Of Breath Stated Complaint: DIFFICULTY BREATHING Time Seen by Provider: 02/26/19 17:50 Primary Care Provider: KAUSHIK MARSHALL MD [Primary Care Provider] - Follow up as needed Information source: Patient Notes: Patient presents complaining of chronic difficulty breathing that worsened over the past 3 days. Patient states that he has chronic abdominal tenderness, although states that his abdominal pain has worsened. Patient states that when he attempts to compensate and take a deep breath it worsens his abdominal tenderness. Patient states that his oxygen saturations have been dipping into the 60s and 70s when he falls asleep. Patient wears O2 chronically due to his morbid obesity. Patient also reports that his pulse ox and his blood pressure have been running lower in the left arm as compared to the right. Patient reports a history of A. fib, DVT and arthritis. I have greeted and performed a rapid initial assessment of this patient. A comprehensive ED assessment and evaluation of the patient, analysis of test results and completion of the medical decision making process will be conducted by additional ED providers. TRAVEL OUTSIDE OF THE [place] IN LAST 30 DAYS: No - Related Data Allergies/Adverse Reactions: ciprofloxacin [From Cipro] Allergy (Verified 02/26/19 17:48) ciprofloxacin HCl [From Cipro] Allergy (Verified 02/26/19 17:48) Past Medical History - Social History Drug Abuse: Marijuana Family history: Reviewed & Not Pertinent - Past Medical History Cardiac Medical History: Reports: Hx Atrial Fibrillation, Hx Congestive Heart Failure, Hx DVT Pulmonary Medical History: Reports: Hx Respiratory Failure, Hx Sleep Apnea GI Medical History: Reports: Hx Hiatal Hernia, Hx Endoscopy Musculoskeltal Medical History: Reports Hx Arthritis - ANKLES/KNEES/SHOULDERS, Reports Hx Musculoskeletal Deformity, Reports Hx Musculoskeletal Trauma Skin Medical History: Reports Hx Cellulitis Psychiatric Medical History: Reports: Hx Anxiety, Hx Depression Past Surgical History: Reports: Hx Abdominal Surgery - Hernia, Hx Herniorrhaphy - Umbilical hernia repair, ventral hernia, Hx Testicular Surgery, Hx Umbilical Hernia, Other - Immunizations Hx Diphtheria, Pertussis, Tetanus Vaccination: Yes Physical Exam - Vital signs Vitals: Temp Pulse Resp BP Pulse Ox 97.3 F 81 16 128/111 H 91 L 02/26/19 17:39 02/26/19 17:39 02/26/19 17:39 02/26/19 17:39 02/26/19 17:39 - Respiratory Breath sounds: Rales - Lower lobes - Abdominal Tenderness: Tender - Denies abdomen Course - Vital Signs Vital signs: Temp Pulse Resp BP Pulse Ox 97.3 F 81 16 128/111 H 91 L 02/26/19 17:39 02/26/19 17:39 02/26/19 17:39 02/26/19 17:39 02/26/19 17:39 Doctor's Discharge - Discharge Referrals: KAUSHIK MARSHALL MD [Primary Care Provider] - Follow up as needed
[2019-02-26 19:19] LABS: ABSOLUTE LYMPHOCYTES (AUTO) 0.7 10^3/uL (0.5-4.7); ABSOLUTE MONOCYTES (AUTO) 0.7 10^3/uL (0.1-1.4); ABSOLUTE NEUT (AUTO) 6.4 10^3/uL (1.7-8.2); BASOPHILS % (AUTO) 0.6 % (0-2); EOSINOPHILS % (AUTO) 0.4 % (0-6); HEMATOCRIT 51.8 % (37.9-51.0); HEMOGLOBIN 16.7 g/dL (13.5-17.0); LYMPHOCYTES % (AUTO) 9.3 % (13-45); MEAN CORPUSCULAR HGB CONC 32.2 g/dL (32.0-36.0); MEAN CORPUSCULAR VOLUME 90 fl (80-97); MONOCYTES % (AUTO) 8.4 % (3-13); PLATELET COUNT 155 10^3/uL (150-450); RED BLOOD COUNT 5.76 10^6/uL (4.35-5.55); RED CELL DISTRIBUTION WIDTH 16.4 % (11.5-14.0); SEGMENTED NEUTROPHILS % (AUTO) 81.3 % (42-78); TOTAL CELLS COUNTED % (AUTO) 100 %; WHITE BLOOD COUNT 7.8 10^3/uL (4.0-10.5)
[2019-02-26 19:26] LABS: ARTERIAL BLOOD BASE EXCESS 9.6 mmol/L; ARTERIAL BLOOD H2CO3 2.09 mmol/L (1.05-1.35); ARTERIAL BLOOD HCO3 38.5 mmol/L (20-24); ARTERIAL BLOOD O2 SATURATION 91.2 % (94-98); ARTERIAL BLOOD PH 7.36 (7.35-7.45); ARTERIAL BLOOD PO2 64.9 mmHg (80-100); ARTERIAL BLOOD TOTAL CO2 40.6 mmol/L (23-27)
[2019-02-26 19:30] LABS: ARTERIAL BLOOD FIO2 3L
[2019-02-26 19:32] LABS: ARTERIAL BLOOD PCO2 69.5 mmHg (35-45)
--- NOTE | 2019-02-26 20:15 | RADIOLOGY REPORT (SQ) ---
EXAM DESCRIPTION: XR CHEST 2 VIEWS COMPLETED DATE/TME: 02/26/2019 17:56 CLINICAL HISTORY: 68 years, Male, sob COMPARISON: February 07, 2019 NUMBER OF VIEWS: 3 TECHNIQUE: Frontal and lateral LIMITATIONS: None. FINDINGS: The heart is enlarged but stable. The lungs demonstrate chronic congestive change. Mild progressive right pleural effusion. No pneumothorax IMPRESSION: Enlarged cardiac silhouette. Presumed chronic congestive change. Progressive small right pleural effusion copyright 2010 [employer]- All Rights Reserved
[2019-02-26 20:32] LABS: ALKALINE PHOSPHATASE 64 U/L (38-126); ASPARTATE AMINO TRANSFERASE 26 U/L (17-59); BILIRUBIN,DIRECT 0.3 mg/dL (0.0-0.4); BLOOD UREA NITROGEN 25 mg/dL (7-20); CALCIUM 9.3 mg/dL (8.4-10.2); CHLORIDE 94 mmol/L (98-107); GLUCOSE 95 mg/dL (75-110); POTASSIUM 4.6 mmol/L (3.6-5.0); TOTAL PROTEIN 7.5 g/dL (6.3-8.2)
[2019-02-26 20:39] LABS: ANION GAP 8 (5-19)
[2019-02-26 20:40] LABS: CARBON DIOXIDE 37 mmol/L (22-30)
[2019-02-26 20:44] LABS: NT PRO BNP 2010 pg/mL (<125)
[2019-02-26 20:46] LABS: TROPONIN I < 0.012 ng/mL
--- NOTE | 2019-02-26 21:23 | ER Document Report ---
ED Respiratory Problem - General Chief Complaint: Shortness Of Breath Stated Complaint: DIFFICULTY BREATHING Time Seen by Provider: 02/26/19 17:50 Primary Care Provider: KAUSHIK MARSHALL MD [Primary Care Provider] - Follow up as needed Notes: 68-year-old male presents to the emergency department with a complaint of feeling as though he cannot get enough air in. He has a history of being on home O2. He states that his O2 sats at home were reading low. Here in the emergency department they have been greater than 93. He is not febrile, does not have any associated nausea vomiting or altered mental status. TRAVEL OUTSIDE OF THE [place] IN LAST 30 DAYS: No - Related Data Allergies/Adverse Reactions: ciprofloxacin [From Cipro] Allergy (Verified 02/26/19 17:48) ciprofloxacin HCl [From Cipro] Allergy (Verified 02/26/19 17:48) Past Medical History - General Information source: Patient - Social History Smoking Status: Current Some Day Smoker Drug Abuse: Marijuana Family History: Reviewed & Not Pertinent Patient has suicidal ideation: No Patient has homicidal ideation: No - Past Medical History Cardiac Medical History: Reports: Hx Atrial Fibrillation, Hx Congestive Heart Failure, Hx DVT Pulmonary Medical History: Reports: Hx Respiratory Failure, Hx Sleep Apnea GI Medical History: Reports: Hx Hiatal Hernia, Hx Endoscopy Musculoskeletal Medical History: Reports Hx Arthritis - ANKLES/KNEES/SHOULDERS, Reports Hx Musculoskeletal Deformity, Reports Hx Musculoskeletal Trauma Skin Medical History: Reports Hx Cellulitis Psychiatric Medical History: Reports: Hx Anxiety, Hx Depression Past Surgical History: Reports: Hx Abdominal Surgery - Hernia, Hx Herniorrhaphy - Umbilical hernia repair, ventral hernia, Hx Testicular Surgery, Hx Umbilical Hernia, Other - Immunizations Hx Diphtheria, Pertussis, Tetanus Vaccination: Yes Hx Pneumococcal Vaccination: 11/09/15 Review of Systems - Review of Systems Notes: Constitutional: Negative for fever. HENT: Negative for sore throat. Eyes: Negative for visual changes. Cardiovascular: Negative for chest pain. Respiratory: +shortness of breath. Gastrointestinal: Negative for abdominal pain, vomiting or diarrhea. Genitourinary: Negative for dysuria. Musculoskeletal: Negative for back pain. Skin: Negative for rash. Neurological: Negative for headaches, weakness or numbness. 10 point ROS negative except as marked above and in HPI. Physical Exam - Vital signs Vitals: Temp Pulse Resp BP Pulse Ox 97.3 F 81 16 128/111 H 91 L 02/26/19 17:39 02/26/19 17:39 02/26/19 17:39 02/26/19 17:39 02/26/19 17:39 - Notes Notes: PHYSICAL EXAMINATION: Physical Exam: General: Morbidly obese male no acute distress, nasal cannula in place HEENT: NC/AT, pupils equal round and reactive to light, MM moist,nares clear, oropharynx clear Neck: supple, no adenopathy, no masses. Lungs: clear, no wheezing, no rales no rhonchi CVS: Regular rate and rhythm no murmur gallop or rub Abdomen: Soft active nontender, no masses, no hepatosplenomegaly Ext: Bilateral lymphedema, swelling Neuro: Alert and responsive, moving all 4 extremities on command, cranial nerves intact. Skin: Intact no open lesions, no rash PSYCH: Normal mood, normal affect. Course - Re-evaluation Re-evalutation: 02/26/19 21:23 I reviewed the laboratory data and ABGs, patient is hypercapnic chronically with a PCO2 greater than 60. His pH is 7.34, he is in chronic respiratory failure and on home O2. 02/26/19 21:27 After discussion with the patient, it is agreed that he will be discharged home to follow-up with his outpatient doctor. He may return to the emergency department if he has further difficulties or other concerns. - Vital Signs Vital signs: Temp Pulse Resp BP Pulse Ox 97.3 F 81 24 H 141/111 H 91 L 02/26/19 17:39 02/26/19 17:39 02/26/19 20:00 02/26/19 19:07 02/26/19 20:00 - Laboratory Result Diagrams: 02/26/19 19:03 02/26/19 20:00 Laboratory results interpreted by me: 02/26/19 02/26/19 02/26/19 19:03 19:03 20:00 RBC 5.76 H Hct 51.8 H RDW 16.4 H Lymph % (Auto) 9.3 L Seg Neutrophils % 81.3 H Carbonic Acid 2.09 H ABG pCO2 69.5 H* ABG pO2 64.9 L ABG HCO3 38.5 H ABG Total CO2 40.6 H ABG O2 Saturation 91.2 L Chloride 94 L Carbon Dioxide 37 H BUN 25 H NT-Pro-B Natriuret Pep 02/26/19 20:00 RBC Hct RDW Lymph % (Auto) Seg Neutrophils % Carbonic Acid ABG pCO2 ABG pO2 ABG HCO3 ABG Total CO2 ABG O2 Saturation Chloride Carbon Dioxide BUN NT-Pro-B Natriuret Pep 2010 H Discharge - Discharge Clinical Impression: On home O2, Obesity, morbid, BMI 50 or higher, Lymphedema Chronic respiratory failure Qualifiers: Respiratory failure complication: hypercapnia Qualified Code(s): J96.12 - Chronic respiratory failure with hypercapnia Condition: Fair Disposition: HOME, SELF-CARE Additional Instructions: You were seen today in the emergency department with symptoms related to your chronic respiratory failure. Please continue your home oxygen as previously prescribed, follow-up with your primary care doctor with regards to possible pulmonology consultation. You may return to the emergency department if you have further difficulties or other concerns. Referrals: KAUSHIK MARSHALL MD [Primary Care Provider] - Follow up as needed
[2019-02-26] MEDS ORDERED: LORAZEPAM INJ 2 MG/1 ML VIAL IV ONE (21:24)
[2019-02-26 21:42] VITALS: BP 141/69
--- NOTE | 2019-02-27 00:53 | EKG REPORT ---
SEVERITY:- ABNORMAL ECG - ATRIAL FIBRILLATION, V-RATE 61-97 LAD, CONSIDER LEFT ANTERIOR FASCICULAR BLOCK : Confirmed by: Nelly Sumner MD 27-Feb-2019 00:52:59
== END 2019-02-26 21:41 | disposition home or self-care (01) ==
LOC: ER 17:29
DX: J96.12 Chronic respiratory failure with hypercapnia (principal); Z99.81 Dependence on supplemental oxygen; E66.01 Morbid (severe) obesity due to excess calories; I89.0 Lymphedema, not elsewhere classified; F17.200 Nicotine dependence, unspecified, uncomplicated; F12.10 Cannabis abuse, uncomplicated; Z88.1 Allergy status to other antibiotic agents
CPT/HCPCS: 93005; 94640; 99285; 36415; 82803; 85025; 80053; 84484; 83880; 71046; 93010; A9270; J7620

== ENCOUNTER → 2019-03-03 | Outpatient (CLI) | payer MEDICARE ==
--- NOTE | 2019-03-03 13:59 | RADIOLOGY REPORT (SQ) ---
EXAM DESCRIPTION: SCOLIOSIS SERIES COMPLETED DATE/TIME: 03/03/2019 1:13 pm REASON FOR STUDY: THORACIC RADICULOPATHY (M54.14) M54.14 RADICULOPATHY, THORACIC REGION COMPARISON: None. NUMBER OF VIEWS: One view. TECHNIQUE: Standing AP exam of the thoracolumbar spine with measurement of the ANDERSON angles. LIMITATIONS: None. FINDINGS: GENERALIZED BONY FINDINGS: Marginal osteophytes at multiple levels. THORACIC SPINE: APEX: T8-9 ANGULATION: Right DEGREES: 12 LUMBAR SPINE: APEX: L3 ANGULATION: Left DEGREES: 3 CHANGE: No previous. OTHER: No other significant findings. IMPRESSION: Scoliosis with measurements as above. Spondylosis. TECHNICAL DOCUMENTATION: JOB ID: [id number] [employer]- All Rights Reserved Reading location - IP/workstation name: [email or web address]
--- NOTE | 2019-03-03 14:00 | RADIOLOGY REPORT (SQ) ---
EXAM DESCRIPTION: T SPINE AP/LAT COMPLETED DATE/TIME: 03/03/2019 1:13 pm REASON FOR STUDY: THORACIC RADICULOPATHY (M54.14) M54.14 RADICULOPATHY, THORACIC REGION COMPARISON: None. NUMBER OF VIEWS: Two views. TECHNIQUE: AP and lateral radiographic images acquired of the thoracic spine. LIMITATIONS: None. FINDINGS: MINERALIZATION: Normal. ALIGNMENT: Mild scoliosis. VERTEBRAE: No fracture or bone lesion. Maintained height, normal segmentation. DISCS: Disc spaces are fairly well maintained. There are marginal osteophytes at multiple levels inc luding some bridging osteophytes in the lower thoracic spine. HARDWARE: None in the spine. MEDIASTINUM AND SOFT TISSUES: Normal heart size and aortic contour. No soft tissue abnormality. VISUALIZED LUNG MCKEON: Clear. OTHER: No other significant finding. IMPRESSION: Mild scoliosis. Spondylosis. TECHNICAL DOCUMENTATION: JOB ID: [id number] [employer]- All Rights Reserved Reading location - IP/workstation name: [email or web address]
== END ==
LOC: RAD 12:22
PROVIDERS: ATTEND Family Medicine
DX: M54.14 Radiculopathy, thoracic region (principal)
CPT/HCPCS: 72070; 72082

== ENCOUNTER → 2019-03-09 | Outpatient (CLI) | payer MEDICARE | LOC: OD 14:19 | PROVIDERS: ATTEND Family Medicine | DX: E16.2 Hypoglycemia, unspecified (principal) | CPT/HCPCS: 36415; 82533; 83525 ==

== ENCOUNTER → 2019-07-19 | Emergency (ER) | payer MEDICARE ==
--- NOTE | 2019-07-19 17:06 | RADIOLOGY REPORT (SQ) ---
EXAM DESCRIPTION: CHEST SINGLE VIEW IMAGES COMPLETED DATE/TIME: 07/19/2019 4:57 pm REASON FOR STUDY: sob COMPARISON: PA and lateral views of the chest from 02/26/2019. EXAM PARAMETERS: NUMBER OF VIEWS: One view. TECHNIQUE: An AP view of the chest was obtained. RADIATION DOSE: NA LIMITATIONS: None. FINDINGS: LUNGS AND PLEURA: Asymmetric parenchymal opacities in the inferior aspect of the left mahsa thorax. There is no sizable pleural effusion or pneumothorax. MEDIASTINUM AND HILAR STRUCTURES: No mediastinal or hilar contour abnormality. HEART AND VASCULAR STRUCTURES: The cardiac silhouette is enlarged. BONES: No acute findings. HARDWARE: None in the chest. OTHER: No other finding. IMPRESSION: Asymmetric parenchymal opacities in the inferior aspect of the left hemithorax. Clinica l correlation to exclude a pneumonia is recommended. TECHNICAL DOCUMENTATION: JOB ID: [id number] [employer]- All Rights Reserved Reading location - IP/workstation name: [email or web address]
[2019-07-19 17:09] LABS: ABSOLUTE BASOPHILS # (AUTO) 0.1 10^3/uL (0.0-0.2); ABSOLUTE EOSINOPHILS # (AUTO) 0.1 10^3/uL (0.0-0.6); ABSOLUTE LYMPHOCYTES (AUTO) 1.2 10^3/uL (0.5-4.7); ABSOLUTE MONOCYTES (AUTO) 0.4 10^3/uL (0.1-1.4); ABSOLUTE NEUT (AUTO) 4.5 10^3/uL (1.7-8.2); BASOPHILS % (AUTO) 1.1 % (0-2); EOSINOPHILS % (AUTO) 2.3 % (0-6); HEMATOCRIT 53.7 % (37.9-51.0); HEMOGLOBIN 17.7 g/dL (13.5-17.0); LYMPHOCYTES % (AUTO) 18.4 % (13-45); MEAN CORPUSCULAR HEMOGLOBIN 30.3 pg (27.0-33.4); MEAN CORPUSCULAR VOLUME 92 fl (80-97); MONOCYTES % (AUTO) 6.8 % (3-13); PLATELET COUNT 167 10^3/uL (150-450); RED BLOOD COUNT 5.86 10^6/uL (4.35-5.55); RED CELL DISTRIBUTION WIDTH 15.4 % (11.5-14.0); SEGMENTED NEUTROPHILS % (AUTO) 71.4 % (42-78); TOTAL CELLS COUNTED % (AUTO) 100 %; WHITE BLOOD COUNT 6.3 10^3/uL (4.0-10.5)
[2019-07-19 17:16] LABS: VENOUS BLOOD BASE EXCESS 4.2 mmol/L; VENOUS BLOOD HCO3 35.4 mmol/L (20-32); VENOUS BLOOD PH 7.25 (7.30-7.42)
[2019-07-19 17:18] LABS: VENOUS BLOOD PCO2 83.2 mmHg (35-63)
[2019-07-19 17:30] VITALS: BP 164/130
[2019-07-19 17:31] LABS: ALBUMIN 3.9 g/dL (3.5-5.0); ALKALINE PHOSPHATASE 68 U/L (38-126); ASPARTATE AMINO TRANSFERASE 22 U/L (17-59); BILIRUBIN,TOTAL 0.6 mg/dL (0.2-1.3); BLOOD UREA NITROGEN 32 mg/dL (7-20); CALCIUM 9.1 mg/dL (8.4-10.2); CHLORIDE 95 mmol/L (98-107); CREATINE KINASE 36 U/L (55-170); GLUCOSE 109 mg/dL (75-110); POTASSIUM 5.2 mmol/L (3.6-5.0); TOTAL PROTEIN 7.1 g/dL (6.3-8.2)
[2019-07-19 17:36] LABS: CARBON DIOXIDE 38 mmol/L (22-30)
[2019-07-19 17:37] LABS: ANION GAP 4 (5-19)
[2019-07-19 17:42] LABS: CREATINE KINASE MB 1.17 ng/mL (<4.55)
[2019-07-19 17:44] LABS: TROPONIN I < 0.012 ng/mL
--- NOTE | 2019-07-19 18:13 | ER Document Report ---
ED Blood Pressure Problem - General Chief Complaint: Blood Pressure Problem Stated Complaint: BLOOD PRESSURE PROBLEM Time Seen by Provider: 07/19/19 17:25 Primary Care Provider: KAUSHIK MARSHALL MD [Primary Care Provider] - Follow up as needed Mode of Arrival: Wheelchair Information source: Patient TRAVEL OUTSIDE OF THE [place] IN LAST 30 DAYS: No - HPI Notes: Patient presents stating that he would like his blood pressure checked. He states he just came to the hospital to have a blood pressure check but that when they did his blood pressure they noticed that his oxygen saturation was low so they made him come to her room. He states that he is not concerned about his oxygen because he is post to be on chronic oxygen of 2 L at home. He states when they checked him here he had not been on his oxygen and that is why it was low. He states he does not feel more short of breath than normal. He states he has had a little bit of a runny nose but no productive cough. He also states that he has not had any COVID virus exposures but would like to be checked for the virus. He denies any fever or chills. No chest pain. He states he does have chronic pain and he takes Percocet for that. - Related Data Allergies/Adverse Reactions: ciprofloxacin [From Cipro] Allergy (Verified 07/19/19 17:19) ciprofloxacin HCl [From Cipro] Allergy (Verified 02/26/19 17:48) Past Medical History - General Information source: Patient - Social History Smoking Status: Former Smoker Chew tobacco use (# tins/day): No Frequency of alcohol use: None Drug Abuse: Marijuana Family History: Reviewed & Not Pertinent Patient has homicidal ideation: No - Past Medical History Cardiac Medical History: Reports: Hx Atrial Fibrillation, Hx Congestive Heart Failure, Hx DVT Pulmonary Medical History: Reports: Hx Respiratory Failure, Hx Sleep Apnea GI Medical History: Reports: Hx Hiatal Hernia, Hx Endoscopy Musculoskeletal Medical History: Reports Hx Arthritis - ANKLES/KNEES/SHOULDERS, Reports Hx Musculoskeletal Deformity, Reports Hx Musculoskeletal Trauma Skin Medical History: Reports Hx Cellulitis Psychiatric Medical History: Reports: Hx Anxiety, Hx Depression Past Surgical History: Reports: Hx Abdominal Surgery - Hernia, Hx Herniorrhaphy - Umbilical hernia repair, ventral hernia, Hx Testicular Surgery, Hx Umbilical Hernia, Other - Immunizations Hx Diphtheria, Pertussis, Tetanus Vaccination: Yes Hx Pneumococcal Vaccination: 11/09/15 Review of Systems - Review of Systems Constitutional: Weakness. denies: Chills Cardiovascular: denies: Chest pain, Palpitations Respiratory: Short of breath. denies: Cough -: Yes All other systems reviewed and negative Physical Exam - Vital signs Vitals: Temp 99.0 F 07/19/19 16:18 Interpretation: Hypertensive, Hypoxic - General General appearance: Appears well, Alert - HEENT Head: Normocephalic, Atraumatic Eyes: Normal Pupils: PERRL - Respiratory Respiratory status: No respiratory distress Chest status: Nontender Breath sounds: Decreased air movement Chest palpation: Normal - Cardiovascular Rhythm: Irregularly irregular Heart sounds: Normal auscultation Murmur: No - Abdominal Inspection: Morbidly Obese Distension: No distension Bowel sounds: Normal Tenderness: Nontender Organomegaly: No organomegaly - Back Back: Normal, Nontender - Extremities General upper extremity: Normal inspection, Nontender, Normal color, Normal ROM, Normal temperature General lower extremity: Other - Lower extremities have bilateral pitting edema with chronic lymphedematous changes - Neurological Neuro grossly intact: Yes Cognition: Normal Orientation: AAOx4 Ute Coma Scale Eye Opening: Spontaneous [place] Coma Scale Verbal: Oriented [place]te Coma Scale Motor: Obeys Commands [place] Coma Scale Total: 15 Speech: Normal Motor strength normal: LUE, RUE, LLE, RLE Sensory: Normal - Psychological Associated symptoms: Normal affect, Normal mood - Skin Skin Temperature: Warm Skin Moisture: Dry Course - Re-evaluation Re-evalutation: 07/19/19 18:13 Patient states he came to the hospital to get a blood pressure check. He states he wanted to know if his blood pressure was going up or down since he stopped his Lasix. He states he stopped his Lasix about 3 weeks ago. I have told him that he needs to resume his Lasix and that his blood pressure is elevated. On x-ray he does have a questionable infiltrate but since the patient does not want to stay I will send him home with antibiotics. He also wants a Covid test which I will order for the patient. Patient has elected to leave AGAINST MEDICAL ADVICE. Patient is intelligent and capable of making his own decisions. He is alert and oriented x3. He understands his significant risk of permanent disability or by leaving but still states he would like to leave. He states that he does not want to stay overnight in the hospital because he will be uncomfortable, he cannot sleep, he will have nothing to read, and he does not have the money for the co-pay. I tried to deal with each 1 of these reasons individually however patient was adamant that he wanted to leave AGAINST MEDICAL ADVICE. - Vital Signs Vital signs: Temp Pulse Resp BP Pulse Ox 99 F 70 16 164/130 H 90 L 07/19/19 16:34 07/19/19 16:34 07/19/19 17:00 07/19/19 17:22 07/19/19 17:22 - Laboratory Result Diagrams: 07/19/19 16:55 07/19/19 16:55 Laboratory results interpreted by me: 07/19/19 07/19/19 07/19/19 16:55 16:55 16:55 RBC 5.86 H Hgb 17.7 H Hct 53.7 H RDW 15.4 H VBG pH 7.25 L VBG pCO2 83.2 H* VBG HCO3 35.4 H Potassium 5.2 H Chloride 95 L Carbon Dioxide 38 H Anion Gap 4 L BUN 32 H Creatine Kinase 36 L - Diagnostic Test Radiology reviewed: Image reviewed, Reports reviewed - EKG Interpretation by Me Rate: Normal - 69 Rhythm: A.Fib, PVC's [place]/QRS: No: RBBB, LBBB When compared to previous EKG there are: No significant change Discharge - Discharge Clinical Impression: Uncontrolled hypertension, Hypoxia, Lymphedema, Acute respiratory failure with hypoxia Afib Qualifiers: Atrial fibrillation type: longstanding persistent Qualified Code(s): I48.11 - Longstanding persistent atrial fibrillation Condition: Fair Disposition: AGAINST MEDICAL ADVICE Instructions: Dyspnea, Nonspecific ([facility]) Additional Instructions: You are leaving AGAINST MEDICAL ADVICE. If you change your mind about having further care here especially in regards to being admitted please return immediately. I have significant concerns that you may have risks of permanent disability or due to your uncontrolled blood pressure and your severe respiratory issues. Please follow-up with your primary care doctor as soon as possible, I recommend that you call them first thing in the morning to be seen. Prescriptions: Cefdinir 300 mg PO BID 7 Days #14 capsule Forms: Elevated Blood Pressure Referrals: KAUSHIK MARSHALL MD [Primary Care Provider] - Follow up as needed NAVID MORRISON MD [ACTIVE STAFF] - Follow up tomorrow
--- NOTE | 2019-07-20 08:03 | EKG REPORT ---
SEVERITY:- ABNORMAL ECG - ATRIAL FIBRILLATION VENTRICULAR PREMATURE COMPLEX PROBABLE INFERIOR INFARCT, OLD : Confirmed by: Nelly Sumner MD 20-Jul-2019 08:02:41
== END ==
LOC: ER 16:16
DX: I11.0 Hypertensive heart disease with heart failure (principal); J96.01 Acute respiratory failure with hypoxia; I89.0 Lymphedema, not elsewhere classified; I48.11 Longstanding persistent atrial fibrillation; Z88.1 Allergy status to other antibiotic agents; Z87.891 Personal history of nicotine dependence; I50.9 Heart failure, unspecified; Z20.828 Contact with and (suspected) exposure to other viral communicable diseases
CPT/HCPCS: 93005; 99284; 36415; 82553; 82550; 83605; 85025; 80053; 84484; 82803; 71045; 93010; U0003; C9803; 87635

== ENCOUNTER → 2019-09-18 | Outpatient (CLI) | payer MEDICARE ==
[2019-09-18 17:55] LABS: ABSOLUTE EOSINOPHILS # (AUTO) 0.2 10^3/uL (0.0-0.6); ABSOLUTE LYMPHOCYTES (AUTO) 1.3 10^3/uL (0.5-4.7); ABSOLUTE MONOCYTES (AUTO) 0.5 10^3/uL (0.1-1.4); HEMOGLOBIN 19.1 g/dL (13.5-17.0); TOTAL CELLS COUNTED % (AUTO) 100 %
[2019-09-18 18:15] LABS: ABSOLUTE NEUT (AUTO) 4.5 10^3/uL (1.7-8.2); BASOPHILS % (AUTO) 0.6 % (0-2); MEAN CORPUSCULAR HEMOGLOBIN 30.2 pg (27.0-33.4); MEAN CORPUSCULAR HGB CONC 33.2 g/dL (32.0-36.0); MEAN CORPUSCULAR VOLUME 91 fl (80-97); PLATELET COUNT 165 10^3/uL (150-450); RED BLOOD COUNT 6.32 10^6/uL (4.35-5.55); RED CELL DISTRIBUTION WIDTH 15.5 % (11.5-14.0); SEGMENTED NEUTROPHILS % (AUTO) 68.4 % (42-78); WHITE BLOOD COUNT 6.5 10^3/uL (4.0-10.5)
[2019-09-18 18:33] LABS: HEMATOCRIT 57.4 % (37.9-51.0)
== END ==
LOC: OD 16:39
PROVIDERS: ATTEND Family Medicine
DX: D45 Polycythemia vera (principal); E87.5 Hyperkalemia
CPT/HCPCS: 36415; 84132; 85025

== ENCOUNTER → 2019-12-05 | Outpatient (CLI) | payer MEDICARE ==
[2019-12-05 14:37] LABS: ABSOLUTE BASOPHILS # (AUTO) 0.1 10^3/uL (0.0-0.2); ABSOLUTE EOSINOPHILS # (AUTO) 0.3 10^3/uL (0.0-0.6); ABSOLUTE LYMPHOCYTES (AUTO) 1.2 10^3/uL (0.5-4.7); ABSOLUTE MONOCYTES (AUTO) 0.5 10^3/uL (0.1-1.4); ABSOLUTE NEUT (AUTO) 4.3 10^3/uL (1.7-8.2); BASOPHILS % (AUTO) 1.1 % (0-2); HEMATOCRIT 54.6 % (37.9-51.0); HEMOGLOBIN 18.8 g/dL (13.5-17.0); LYMPHOCYTES % (AUTO) 19.5 % (13-45); MEAN CORPUSCULAR HEMOGLOBIN 31.4 pg (27.0-33.4); MEAN CORPUSCULAR HGB CONC 34.5 g/dL (32.0-36.0); MEAN CORPUSCULAR VOLUME 91 fl (80-97); MONOCYTES % (AUTO) 7.5 % (3-13); PLATELET COUNT 170 10^3/uL (150-450); RED CELL DISTRIBUTION WIDTH 14.9 % (11.5-14.0); SEGMENTED NEUTROPHILS % (AUTO) 67.9 % (42-78); TOTAL CELLS COUNTED % (AUTO) 100 %; WHITE BLOOD COUNT 6.3 10^3/uL (4.0-10.5)
[2019-12-05 14:50] LABS: ANION GAP 6 (5-19); BLOOD UREA NITROGEN 26 mg/dL (7-20); CALCIUM 9.3 mg/dL (8.4-10.2); CARBON DIOXIDE 35 mmol/L (22-30); CHLORIDE 96 mmol/L (98-107); GLUCOSE 111 mg/dL (75-110); POTASSIUM 4.7 mmol/L (3.6-5.0)
== END ==
LOC: OD 13:50
PROVIDERS: ATTEND Family Medicine
DX: D45 Polycythemia vera (principal); I50.32 Chronic diastolic (congestive) heart failure
CPT/HCPCS: 36415; 80048; 85025

== ENCOUNTER 2019-12-23 11:01 | Emergency (ER) | payer MEDICARE ==
--- NOTE | 2019-12-23 12:05 | ER Document Report ---
ED Medical Screen (RME) - General Chief Complaint: Flu Symptoms Stated Complaint: CHILLS, FEVER, BODY ACHES, COUGH Time Seen by Provider: 12/23/19 11:59 Primary Care Provider: KAUSHIK MARSHALL MD [Primary Care Provider] - Follow up as needed Mode of Arrival: Wheelchair Information source: Patient Notes: 69-year-old male presented to ED for cough cold congestion headache dry cough. He states he had a flu shot recently just last couple days. He states he does not know what his medical history is when asked him that he has CHF or COPD he states he does not know but he does often need steroids and antibiotics when he gets a cough like this. The patient was evaluated during the global Covid 19 pandemic, and that diagnosis was suspected/considered upon their initial presentation. Their evaluation, treatment and testing was consistent with current guidelines for patients who present with complaints or symptoms that may be related to Covid 19. I have greeted and performed a rapid initial assessment of this patient. A comprehensive ED assessment and evaluation of the patient, analysis of test results and completion of medical decision making process will be conducted by an additional ED providers. TRAVEL OUTSIDE OF THE [place] IN LAST 30 DAYS: No - Related Data Allergies/Adverse Reactions: ciprofloxacin [From Cipro] Allergy (Verified 07/19/19 17:19) ciprofloxacin HCl [From Cipro] Allergy (Verified 02/26/19 17:48) Past Medical History - Social History Frequency of alcohol use: None Drug Abuse: Marijuana Family history: Reviewed & Not Pertinent - Past Medical History Cardiac Medical History: Reports: Hx Atrial Fibrillation, Hx Congestive Heart Failure, Hx DVT Pulmonary Medical History: Reports: Hx Respiratory Failure, Hx Sleep Apnea GI Medical History: Reports: Hx Hiatal Hernia, Hx Endoscopy Musculoskeltal Medical History: Reports Hx Arthritis - ANKLES/KNEES/SHOULDERS, Reports Hx Musculoskeletal Deformity, Reports Hx Musculoskeletal Trauma Skin Medical History: Reports Hx Cellulitis Psychiatric Medical History: Reports: Hx Anxiety, Hx Depression Past Surgical History: Reports: Hx Abdominal Surgery - Hernia, Hx Herniorrhaphy - Umbilical hernia repair, ventral hernia, Hx Testicular Surgery, Hx Umbilical Hernia, Other - Immunizations Hx Diphtheria, Pertussis, Tetanus Vaccination: Yes Physical Exam - Vital signs Vitals: Temp Pulse Resp BP Pulse Ox 98.5 F 60 20 112/71 90 L 12/23/19 11:33 12/23/19 11:33 12/23/19 11:33 12/23/19 11:33 12/23/19 11:33 Course - Vital Signs Vital signs: Temp Pulse Resp BP Pulse Ox 98.5 F 60 20 112/71 90 L 12/23/19 11:33 12/23/19 11:33 12/23/19 11:33 12/23/19 11:33 12/23/19 11:33 Doctor's Discharge - Discharge Referrals: KAUSHIK MARSHALL MD [Primary Care Provider] - Follow up as needed
--- NOTE | 2019-12-23 12:41 | ER Document Report ---
ED General - General Chief Complaint: Flu Symptoms Stated Complaint: CHILLS, FEVER, BODY ACHES, COUGH Time Seen by Provider: 12/23/19 11:59 Primary Care Provider: FABIOLA RODRIGUEZ MD [ACTIVE STAFF] - Follow up as needed KAUSHIK MARSHALL MD [Primary Care Provider] - Follow up as needed Mode of Arrival: Wheelchair TRAVEL OUTSIDE OF THE [place] IN LAST 30 DAYS: No - HPI Notes: 69-year-old male with a history of CHF, COPD who is oxygen dependent at home as needed presents to the emergency room today for a cough, headache, chills, runny nose and a dry cough, congestion that started yesterday. Patient states that he does try to come to the emergency room before his COPD exacerbations and or viral symptoms become worse. Denies any chest pain, nausea vomiting diarrhea. Patient does use a rescue inhaler at home which he states has been helpful. Patient reports that he did get a flu shot a couple of days ago he is not sure if this is what is causing his symptoms. - Related Data Allergies/Adverse Reactions: ciprofloxacin [From Cipro] Allergy (Verified 07/19/19 17:19) ciprofloxacin HCl [From Cipro] Allergy (Verified 02/26/19 17:48) Past Medical History - General Information source: Patient - Social History Smoking Status: Never Smoker Frequency of alcohol use: None Drug Abuse: Marijuana Family History: Reviewed & Not Pertinent - Past Medical History Cardiac Medical History: Reports: Hx Atrial Fibrillation, Hx Congestive Heart Failure, Hx DVT Pulmonary Medical History: Reports: Hx Respiratory Failure, Hx Sleep Apnea GI Medical History: Reports: Hx Hiatal Hernia, Hx Endoscopy Musculoskeletal Medical History: Reports Hx Arthritis - ANKLES/KNEES/SHOULDERS, Reports Hx Musculoskeletal Deformity, Reports Hx Musculoskeletal Trauma Skin Medical History: Reports Hx Cellulitis Psychiatric Medical History: Reports: Hx Anxiety, Hx Depression Past Surgical History: Reports: Hx Abdominal Surgery - Hernia, Hx Herniorrhaphy - Umbilical hernia repair, ventral hernia, Hx Testicular Surgery, Hx Umbilical Hernia, Other - Immunizations Hx Diphtheria, Pertussis, Tetanus Vaccination: Yes Hx Pneumococcal Vaccination: 11/09/15 Physical Exam - Vital signs Vitals: Temp Pulse Resp BP Pulse Ox 98.5 F 60 20 112/71 90 L 12/23/19 11:33 12/23/19 11:33 12/23/19 11:33 12/23/19 11:33 12/23/19 11:33 Course - Re-evaluation Re-evalutation: 12/23/19 17:50 Febrile vital stable no distress on oxygen. CBC negative for leukocytosis, CMP negative for hepatic renal dysfunction, patient's carbon dioxide is 40, BNP is 1180, which is improved from his previous BNPs. Patient received 125 Solu- Medrol and DuoNeb. EKG negative for STEMI, no ST segment elevations. Troponin less than 0.012. Chest x-ray similar to previous chest x-rays, no new vascular congestion. unable to obtain ABG, unable to obtain due to access. Discussed case with Dr. Claudio Powell, ER supervising physician who stated that with his history of COPD, his baseline's been trending his carbon dioxide's ranged from 36 just to 40, patient has home oxygen that he uses, he does not feel short of breath, he does not feel like he is having an exacerbation, he wanted to come in to just get antibiotics and steroids because he felt like something viral was going on. He was Covid tested. Patient does not need to be admitted to the hospitalist service. On reevaluation patient stated that he felt much better. He states he would like to go home. Will write patient for a 10-day outpatient antibiotic therapy doxycycline twice a day, start on oral steroids and his proair. Patient was very comfortable with this finding and felt that this was agreeable. Advised to follow-up with primary care provider within the next 24 to 48 hours. After performing a Medical Screening Examination, I estimate there is LOW risk for RUPTURED ESOPHAGUS, PNEUMOTHORAX, PULMONARY EMBOLISM, ACUTE CORONARY SYNDROME, OR THORACIC AORTIC DISSECTION, thus I consider the discharge disposition reasonable. I have reevaluated this patient multiple times and no significant life threatening changes are noted. The patient and I have discussed the diagnosis and risks, and we agree with discharging home with close follow- up. We also discussed returning to the Emergency Department immediately if new or worsening symptoms occur. We have discussed the symptoms which are most jeferson rning (e.g., bloody sputum, worsening pain or shortness of breath) that necessitate immediate return. - Vital Signs Vital signs: Temp Pulse Resp BP Pulse Ox 98.5 F 60 15 135/106 H 94 12/23/19 11:33 12/23/19 11:33 12/23/19 17:01 12/23/19 17:00 12/23/19 17:00 - Laboratory Result Diagrams: 12/23/19 13:27 12/23/19 13:27 Laboratory results interpreted by me: 12/23/19 12/23/19 12/23/19 13:27 13:27 13:27 RBC 5.58 H Hgb 17.3 H RDW 15.2 H Cocke % (Auto) 16.5 H Chloride 94 L Carbon Dioxide 40 H* Anion Gap 4 L BUN 31 H NT-Pro-B Natriuret Pep 1180 H - Diagnostic Test Radiology reviewed: Image reviewed, Reports reviewed Radiology results interpreted by me: 12/23/19 17:11 Chest X-Ray 12/23/19 12:39 IMPRESSION: No significant interval change. Chronic pleural and parenchymal scarring at the right lung base is stable. No acute cardiopulmonary disease. 12/23/19 13:27 12/23/19 13:27 MCV 91 fl (80-97) 12/23/19 13:27 MCH 30.9 pg (27.0-33.4) 12/23/19 13:27 MCHC 33.9 g/dL (32.0-36.0) 12/23/19 13:27 RDW 15.2 % (11.5-14.0) H 12/23/19 13:27 Seg Neutrophils % 58.5 % (42-78) 12/23/19 13:27 Chloride 94 mmol/L (98-107) L 12/23/19 13:27 Carbon Dioxide 40 mmol/L (22-30) H* 12/23/19 13:27 Anion Gap 4 (5-19) L 12/23/19 13:27 Est GFR ( Amer) > 60 (>60) 12/23/19 13:27 Glucose 97 mg/dL (75-110) 12/23/19 13:27 Calcium 9.0 mg/dL (8.4-10.2) 12/23/19 13:27 Total Bilirubin 0.6 mg/dL (0.2-1.3) 12/23/19 13:27 AST 24 U/L (17-59) 12/23/19 13:27 Alkaline Phosphatase 79 U/L (38-126) 12/23/19 13:27 Total Protein 6.4 g/dL (6.3-8.2) 12/23/19 13:27 Albumin 3.5 g/dL (3.5-5.0) 12/23/19 13:27 12/23/19 13:27 Troponin I < 0.012 NT-Pro-B Natriuret Pep 1180 H - EKG Interpretation by Me EKG shows normal: Sinus rhythm Rate: Bradycardia Rhythm: NSR Discharge - Discharge Clinical Impression: COPD (chronic obstructive pulmonary disease), Cough, Person under investigation for COVID-19 Condition: Stable Disposition: HOME, SELF-CARE Instructions: COVID-19 Guidance for Persons Under Investigation Additional Instructions: Your chest x-ray was unremarkable, a CBC was normal, your CMP was essentially her baseline. Please follow-up with your primary care provider and web analytics developer. Please take antibiotics, steroid, rescue Claudio as needed. You were given Solu-Medrol and a breathing treatment here in the emergency room. Return to the emergency room if you have worsening symptoms such as chest pain, cough, shortness of breath. Return immediately for any new or worsening symptoms. Follow up with primary care provider, call tomorrow to make followup appointment. Prescriptions: Albuterol Sulfate [Proair Respiclick] 90 mcg IH Q4HP PRN #1 [email or web address] PRN Reason: Prednisone [Deltasone 20 mg Tablet] 3 tab PO DAILY 5 Days #15 tablet Doxycycline Monohydrate 100 mg PO BID #20 tablet Referrals: KAUSHIK MARSHALL MD [Primary Care Provider] - Follow up as needed FABIOLA RODRIGUEZ MD [ACTIVE STAFF] - Follow up as needed
--- NOTE | 2019-12-23 13:26 | RADIOLOGY REPORT (SQ) ---
EXAM DESCRIPTION: CHEST SINGLE VIEW IMAGES COMPLETED DATE/TIME: 12/23/2019 11:52 am REASON FOR STUDY: cough, hx of chf COMPARISON: 610 20 EXAM PARAMETERS: NUMBER OF VIEWS: One view. TECHNIQUE: Single frontal radiographic view of the chest acquired. RADIATION DOSE: NA LIMITATIONS: None. FINDINGS: LUNGS AND PLEURA: Lungs are hyperinflated. Chronic pleural and parenchymal scarring at th e right lung base is stable. No new consolidation or pleural effusion. No pneumothorax. MEDIASTINUM AND HILAR STRUCTURES: No masses. Contour normal. HEART AND VASCULAR STRUCTURES: Heart normal in size. Normal vasculature. BONES: No acute findings. HARDWARE: None in the chest. OTHER: No other significant finding. IMPRESSION: No significant interval change. Chronic pleural and parenchymal scarring at the right l naye base is stable. No acute cardiopulmonary disease. TECHNICAL DOCUMENTATION: JOB ID: [id number] 2010 [employer]- All Rights Reserved Reading location - IP/workstation name: [email or web address]
[2019-12-23] MEDS ORDERED: METHYLPREDNISOLONE INJ 125 MG/2 ML SDV IV ONE (13:49)
[2019-12-23] MEDS ORDERED: IPRATROPIUM/ALBUTEROL 0.5-2.5 MG/3 ML AMPUL NEB ONE (13:49)
[2019-12-23 14:07] LABS: ABSOLUTE EOSINOPHILS # (AUTO) 0.3 10^3/uL (0.0-0.6); ABSOLUTE LYMPHOCYTES (AUTO) 0.8 10^3/uL (0.5-4.7); ABSOLUTE MONOCYTES (AUTO) 0.8 10^3/uL (0.1-1.4); ABSOLUTE NEUT (AUTO) 2.7 10^3/uL (1.7-8.2); BASOPHILS % (AUTO) 0.8 % (0-2); EOSINOPHILS % (AUTO) 5.7 % (0-6); HEMOGLOBIN 17.3 g/dL (13.5-17.0); LYMPHOCYTES % (AUTO) 18.5 % (13-45); MEAN CORPUSCULAR HEMOGLOBIN 30.9 pg (27.0-33.4); MEAN CORPUSCULAR HGB CONC 33.9 g/dL (32.0-36.0); MEAN CORPUSCULAR VOLUME 91 fl (80-97); MONOCYTES % (AUTO) 16.5 % (3-13); PLATELET COUNT 150 10^3/uL (150-450); RED BLOOD COUNT 5.58 10^6/uL (4.35-5.55); RED CELL DISTRIBUTION WIDTH 15.2 % (11.5-14.0); SEGMENTED NEUTROPHILS % (AUTO) 58.5 % (42-78); TOTAL CELLS COUNTED % (AUTO) 100 %; WHITE BLOOD COUNT 4.5 10^3/uL (4.0-10.5)
[2019-12-23 14:18] LABS: A TYPE INFLUENZA AG NEGATIVE (NEGATIVE); B INFLUENZA AG NEGATIVE (NEGATIVE)
[2019-12-23 14:21] LABS: ALBUMIN 3.5 g/dL (3.5-5.0); ALKALINE PHOSPHATASE 79 U/L (38-126); ASPARTATE AMINO TRANSFERASE 24 U/L (17-59); BILIRUBIN,DIRECT 0.2 mg/dL (0.0-0.4); BILIRUBIN,TOTAL 0.6 mg/dL (0.2-1.3); BLOOD UREA NITROGEN 31 mg/dL (7-20); CHLORIDE 94 mmol/L (98-107); GLUCOSE 97 mg/dL (75-110); POTASSIUM 4.6 mmol/L (3.6-5.0); TOTAL PROTEIN 6.4 g/dL (6.3-8.2)
[2019-12-23 14:36] LABS: NT PRO BNP 1180 pg/mL (<125)
[2019-12-23 14:44] LABS: TROPONIN I < 0.012 ng/mL
[2019-12-23 14:46] LABS: ANION GAP 4 (5-19); CARBON DIOXIDE 40 mmol/L (22-30)
[2019-12-23 17:31] VITALS: BP 135/106
--- NOTE | 2019-12-24 09:09 | EKG REPORT ---
SEVERITY:- ABNORMAL ECG - ATRIAL FIBRILLATION NONSPECIFIC INTRAVENTRICULAR CONDUCTION DELAY : Confirmed by: Yee Bell 24-Dec-2019 09:08:09
== END 2019-12-23 17:47 | disposition home or self-care (01) ==
LOC: ER 11:01
DX: J44.9 Chronic obstructive pulmonary disease, unspecified (principal); R50.9 Fever, unspecified; M79.10 Myalgia, unspecified site; R05 Cough; I50.9 Heart failure, unspecified; R51.9 Headache, unspecified; R09.89 Other specified symptoms and signs involving the circulatory and respiratory systems; R09.81 Nasal congestion; Z20.828 Contact with and (suspected) exposure to other viral communicable diseases; Z99.81 Dependence on supplemental oxygen; Z88.1 Allergy status to other antibiotic agents; I48.91 Unspecified atrial fibrillation
CPT/HCPCS: 93005; 94640; 99285; 96374; 36415; 85025; 80053; 84484; 87804; 83880; 71045; 93010; U0003; J2930; C9803; 87635

== ENCOUNTER → 2020-03-07 | Outpatient (CLI) | payer MEDICARE ==
[2020-03-07 15:32] LABS: ABSOLUTE BASOPHILS # (AUTO) 0.1 10^3/uL (0.0-0.2); ABSOLUTE EOSINOPHILS # (AUTO) 0.2 10^3/uL (0.0-0.6); ABSOLUTE MONOCYTES (AUTO) 0.5 10^3/uL (0.1-1.4); BASOPHILS % (AUTO) 1.3 % (0-2); TOTAL CELLS COUNTED % (AUTO) 100 %; WHITE BLOOD COUNT 6.3 10^3/uL (4.0-10.5)
[2020-03-07 15:37] LABS: ABSOLUTE LYMPHOCYTES (AUTO) 1.6 10^3/uL (0.5-4.7); ABSOLUTE NEUT (AUTO) 3.9 10^3/uL (1.7-8.2); EOSINOPHILS % (AUTO) 2.9 % (0-6); HEMOGLOBIN 19.5 g/dL (13.5-17.0); LYMPHOCYTES % (AUTO) 25.8 % (13-45); MEAN CORPUSCULAR HEMOGLOBIN 30.8 pg (27.0-33.4); MEAN CORPUSCULAR HGB CONC 33.4 g/dL (32.0-36.0); MEAN CORPUSCULAR VOLUME 92 fl (80-97); PLATELET COUNT 170 10^3/uL (150-450); RED BLOOD COUNT 6.34 10^6/uL (4.35-5.55); RED CELL DISTRIBUTION WIDTH 14.6 % (11.5-14.0)
[2020-03-07 15:55] LABS: ALBUMIN 3.9 g/dL (3.5-5.0); ALKALINE PHOSPHATASE 79 U/L (38-126); ANION GAP 6 (5-19); ASPARTATE AMINO TRANSFERASE 25 U/L (17-59); BILIRUBIN,DIRECT 0.2 mg/dL (0.0-0.4); BILIRUBIN,TOTAL 0.8 mg/dL (0.2-1.3); BLOOD UREA NITROGEN 24 mg/dL (7-20); CALCIUM 9.3 mg/dL (8.4-10.2); CARBON DIOXIDE 36 mmol/L (22-30); CHLORIDE 98 mmol/L (98-107); GLUCOSE 100 mg/dL (75-110); POTASSIUM 4.5 mmol/L (3.6-5.0); TOTAL PROTEIN 6.9 g/dL (6.3-8.2); TRIGLYCERIDES 155 mg/dL (<150)
[2020-03-07 16:06] LABS: DIRECT LDL 134 mg/dL (<100)
[2020-03-07 16:22] LABS: HEMATOCRIT 58.5 % (37.9-51.0)
== END ==
LOC: OD 14:25
PROVIDERS: ATTEND Family Medicine
DX: D45 Polycythemia vera (principal); E53.8 Deficiency of other specified B group vitamins; E78.5 Hyperlipidemia, unspecified
CPT/HCPCS: 36415; 80053; 80061; 82607; 85025